=== PATIENT | male | born 1950 | race Caucasian/White ===

== ENCOUNTER → 2017-06-21 | Outpatient (CLI) | payer BC ==
[2015-09-20 10:35] VITALS: BP 96/67
[~2017-06-21] MED LIST: ASPI-630 PO; CELE200C PO; CETI5TAB2 PO; CONTRAST GIVEN MC PRN; EYEDROPS; IOHEXOL 240 MG/ML 50ML VIAL. PO ONE; IOHEXOL 300 MG/ML 75 ML VIAL IV ONE; [UNRECOGNIZED DRUG - REMARK]
--- NOTE | 2017-06-21 12:02 | RAD ---
CT chest, abdomen and pelvis 06/21/2017 at 1045 hours Indication: Restaging colon cancer. Comparison: CT of chest, abdomen and pelvis 06/21/2016 Technique: Multiple axial CT images of the chest, abdomen and pelvis were obtained after the intravenous administration of 74 mL Omnipaque 300. Coronal and sagittal reformats are provided. Oral contrast was administered. Findings: The thyroid gland appears normal. There are no enlarged lymph nodes in the axilla, mediastinal or hilar regions. Borderline prominence of the aortic root measuring up to 4.0 cm. Descending thoracic aorta measures 3.3 cm. Origin of the brachiocephalic vessels are normal. Heart size is within normal limits. No pericardial effusion. Biapical pleural-parenchymal scarring is visualized. Mild upper lung zone predominant centrilobular emphysematous changes are present. Central airways are clear. Stable solid noncalcified pulmonary nodules are identified closely associated with the pleura and pulmonary fissures. For example, stable appearance of a 6 mm mara fissural nodule (series 2, image 47). Right lower lobe pulmonary nodule measuring 6 mm with pleural Association (series 2, image 49) is stable. Left lower lobe 6 mm solid noncalcified pulmonary nodule in the left lateral chest wall pleura is stable ( series 2, image 45). Additional nodules are stable. No pleural effusions, pulmonary vascular congestion or pneumothorax. Abdomen/pelvis: Liver is homogeneous without evidence for a focal mass lesion. Spleen, right adrenal gland and pancreas are normal in appearance. There is similar fusiform thickening of the left adrenal gland measuring 9 mm. Gallbladder is present. No adjacent inflammatory changes are noted. There is mild fusiform ectasia of the infrarenal abdominal aorta. There is scattered atherosclerotic calcification. There are no enlarged lymph nodes in the abdomen or pelvis there is no free intraperitoneal air. No free fluid. There are no dilated small or large bowel loops. No pericolonic inflammatory changes are present. Urinary bladder is within normal limits. Prostate is mildly enlarged. No suspicious osseous lesions are identified. Moderate degenerative changes of the lumbar spine are noted most prominent at L2-L3 and L5-S1. No evidence for cord compression. Impression: 1. Mild centrilobular emphysema with biapical pleural-parenchymal scarring appears stable. There is similar appearance of noncalcified pulmonary nodules predominantly along the pleura and pulmonary fissures. No new solid noncalcified pulmonary nodules are identified. 2. No evidence for danya metastasis involving the chest, abdomen and pelvis. 3. No evidence for bowel obstruction. PQRS Compliance Statement: One or more of the following individualized dose reduction techniques were utilized for this examination: 1. Automated exposure control 2. Adjustment of the mA and/or kV according to patient size 3. Use of iterative reconstruction technique
== END | disposition home or self-care (01) ==
LOC: CT 08:43
PROVIDERS: ATTEND Internal Medicine Hematology & Oncology
DX: C18.2 Malignant neoplasm of ascending colon (principal); J43.2 Centrilobular emphysema
CPT/HCPCS: 36415; 71260; 74177; 82565; Q9966; Q9967

== ENCOUNTER 2017-09-28 16:38 | Inpatient (IN) | payer BC, MEDICARE ==
[~2017-09-28] VITALS: Ht 175.3 cm; Wt 56.8 kg
[~2017-09-28 16:38] MED LIST changes: -CONTRAST GIVEN MC PRN; -IOHEXOL 240 MG/ML 50ML VIAL. PO ONE; -IOHEXOL 300 MG/ML 75 ML VIAL IV ONE
[2017-09-28 17:53] LABS: BASO % 0 % (0-3); EOS % 0 % (0-3); HEMATOCRIT 44.5 % (39.0-53.0); HEMOGLOBIN 15.3 g/dL (13.0-17.5); LYMPH # 0.3 x10^3/uL (1.0-4.8); LYMPH % 2 % (24-48); MEAN CORPUSCULAR HEMOGLOBIN 31 pg (25-35); MEAN CORPUSCULAR HGB CONC 34 g/dL (31-37); MEAN CORPUSCULAR VOLUME 89 fL (79-100); MONO % 7 % (0-9); NEUT % 91 % (31-73); PLATELET COUNT 190 x10^3/uL (140-400); RED BLOOD COUNT 4.98 x10^6/uL (4.30-5.70); RED CELL DISTRIBUTION WIDTH 13.7 % (11.5-14.5); WHITE BLOOD COUNT 16.4 x10^3/uL (4.0-11.0)
[2017-09-28] MEDS: fentaNYL PF VIAL 100 MCG/2 ML VIAL IV PRN ×3 (18:06→20:44)
[2017-09-28 18:10] LABS: CREATININE 1.3 mg/dL (0.7-1.3); GFR 55.4; POTASSIUM 3.9 mmol/L (3.5-5.1)
[2017-09-28 18:19] LABS: ALBUMIN 3.7 g/dL (3.4-5.0); ALBUMIN/GLOBULIN RATIO 0.9 (1.0-1.7); MAGNESIUM 1.7 mg/dL (1.8-2.4); TOTAL BILIRUBIN 1.6 mg/dL (0.2-1.0); TOTAL PROTEIN 7.6 g/dL (6.4-8.2)
--- NOTE | 2017-09-28 18:32 | RAD ---
CT scan of the head without contrast 09/28/2017 Clinical History: Fall with head trauma. Technique: Unenhanced, contiguous, 5 mm axial sections were obtained through the head. One or more of the following individualized dose reduction techniques were utilized for this study: 1. Automated exposure control. 2. Adjustment of the mA and/or kV according to patient size. 3. Use of iterative reconstruction technique. Findings: Comparison study is dated 07/26/2015. There is generalized parenchymal atrophy. Areas of decreased attenuation are seen within the periventricular and subcortical white matter of both cerebral hemispheres consistent with areas of small vessel ischemic disease. Old areas of lacunar infarctions involving the right basal ganglia region, unchanged. No acute parenchymal abnormality is seen. No extra-axial fluid collection is noted. No skull fracture is seen. Impression: No acute intracranial abnormality is seen. CT scan of the cervical spine without contrast 09/28/2017 Clinical history: Neck pain post fall. Technique: Unenhanced, contiguous, 0.625 mm axial sections were obtained through the cervical spine. Axial, coronal and sagittal reconstructed images were obtained. One or more of the following individualized dose reduction techniques were utilized for this study: 1. Automated exposure control. 2. Adjustment of the mA and/or kV according to patient size. 3. Use of iterative reconstruction technique. Findings: Sagittal and coronal reconstructed images demonstrate mild lateral curvature of the cervical spine convex to the left. There is mild straightening of the normal cervical lordosis. Degenerative changes consisting of varying degrees of disc space narrowing, vertebral endplate sclerosis and mild to moderate anterior and posterior vertebral body osteophyte formation are seen involving the cervical disc spaces. No fracture or subluxation of the cervical vertebrae is seen. Degenerative changes are seen involving the uncovertebral and facet joints throughout the cervical disc spaces. Moderate emphysematous changes are seen involving both upper lobes. Areas of scarring and apical pleural thickening are noted bilaterally Impression: No fracture or subluxation of the cervical vertebra is identified. Electronically signed by: Deshaun Guerrero MD (09/28/2017 6:28 PM) [facility]
--- NOTE | 2017-09-28 18:35 | EKG ---
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
--- NOTE | 2017-09-28 19:08 | ED.ADGEN ---
Past Medical History Past Medical History: Cancer, Other Additional Past Medical Histor: colon cancer with chemo, EMPHYSEMA, HYPOTENSION ,"LOW IQ" Past Surgical History: Appendectomy, Other Additional Past Surgical Histo: colon resection, hernia repair,R arm FX repair , HEMORRHOIDECTOMY Alcohol Use: Occasionally Drug Use: None Adult General Chief Complaint Chief Complaint: MECHANICAL FALL HPI HPI Patient is a 66 year old man, history of hypertension, emphysema, colon cancer in remission for the past 3 years, who presents to the emergency department via EMS with complaint of inability to ambulate after a fall. Patient is a very limited historian, he states that he may have lost his balance in the bathroom around 5 PM this afternoon. He states that he did fall down, he may have struck his head, unclear if there is loss of consciousness. He is unable to straighten his left leg, states he was unable to ambulate after this fall occurred, he did call EMS, and EMS did need to breakdown the door in order to reach the patient. Patient is holding his left lower extremity in flexion, complaining of pain in the femoral region, he denies any other injuries, but as stated is a very limited historian, cannot give additional history, was noted to be hypoxic with oxygen saturation in the upper 70s, he states it is a history of emphysema stated but does not use oxygen at baseline. Patient was placed on 3 L nasal cannula, oxygen saturation is now in the mid 90s, he does decline any complaint of shortness of breath, chest pain, fever, nausea, vomiting, cough, weakness, numbness, tingling or syncope. He is unable to list additional medications aside from aspirin. He follows with Dr. Cristian Thomas. Patient patient is also complaining of some neck and upper back pain, c-collar placed upon arrival to the emergency department. Review of Systems Review of Systems Constitutional: Denies fever or chills. [] Eyes: Denies change in visual acuity. [] HENT: Denies nasal congestion or sore throat. [] Respiratory: Denies cough or shortness of breath. [] Hypoxia. Cardiovascular: Denies chest pain or edema. [] GI: Denies abdominal pain, nausea, vomiting, bloody stools or diarrhea. [] : Denies dysuria. [] Musculoskeletal: Complaining of pain in the neck, upper back and left lower extremity. Integument: Denies rash. [] Neurologic: Denies headache, focal weakness or sensory changes. [] Endocrine: Denies polyuria or polydipsia. [] Lymphatic: Denies swollen glands. [] Psychiatric: Denies depression or anxiety. [] Current Medications Current Medications Current Medications Medications (Trade) Dose Ordered Sig/El Start Time Stop Time Status Last Admin Dose Admin Fentanyl Citrate (Fentanyl 2ml Vial) 25 mcg PRN Q15MIN PRN 09/28/17 17:45 09/29/17 17:44 09/28/17 20:44 25 MCG Allergies Allergies Allergies Coded Allergies Type Severity Reaction Last Updated Verified No Known Drug Allergies 09/20/15 No Physical Exam Physical Exam Constitutional: Well developed, well nourished, no acute distress, non-toxic appearance. []C-collar in place. Patient is thin, slightly disheveled. HENT: Normocephalic, atraumatic, bilateral external ears normal, oropharynx moist, no oral exudates, nose normal. [] Eyes: PERRLA, EOMI, conjunctiva normal, no discharge. [] Neck: Normal range of motion, no tenderness, supple, no stridor. C-collar in place. No step-offs or deformities, no bony point tenderness.[] Cardiovascular:Heart rate regular rhythm, no murmur, S1, S2, no rubs or gallops , soft heart sounds, mild tachycardia. [] Lungs & Thorax: Patient with diminished breath sounds throughout, no wheezing, no rhonchi, no rales, no signs of trauma, no chest wall crepitus or tenderness. No lesions identified.[] Abdomen: Bowel sounds normal, soft, no rebound, no rigidity, no guarding, no tenderness, no masses, no pulsatile masses. [] Skin: Warm, dry, no erythema, no rash. [] Back: No midline tenderness, no step-offs or deformities, no paraspinal tenderness to palpation, no evidence of injury or other abnormalities identified , no CVA tenderness. [] Extremities: Patient holding left lower extremity in flexion of the knee, slightly rotated, denies any bony point tenderness at the hip or groin, complains of tenderness palpation in the femoral region, no evidence of external trauma indication, patient with no evidence of effusion, does have flexion at the knee without any point tenderness, range of motion of the ankle and foot is intact with pulses intact bilaterally, patient did have bilateral muscle wasting, with chronic skin changes no cyanosis, no clubbing, no edema. [ ] Neurologic: Alert and oriented X 3, normal motor function, normal sensory function, no focal deficits noted. [] Psychologic: Affect normal, judgement normal, mood normal. [] Current Patient Data Vital Signs Vital Signs Date Time Temp Pulse Resp B/P (MAP) Pulse Ox O2 Delivery O2 Flow Rate FiO2 09/28/17 19:10 28 93 09/28/17 18:47 111 09/28/17 18:06 Nasal Cannula 3.0 09/28/17 16:40 98.6 116/76 (89) 98.6 Lab Values Laboratory Tests Test 09/28/17 17:40 White Blood Count 16.4 x10^3/uL (4.0-11.0) H Red Blood Count 4.98 x10^6/uL (4.30-5.70) Hemoglobin 15.3 g/dL (13.0-17.5) Hematocrit 44.5 % (39.0-53.0) Mean Corpuscular Volume 89 fL (79-100) Mean Corpuscular Hemoglobin 31 pg (25-35) Mean Corpuscular Hemoglobin Concent 34 g/dL (31-37) Red Cell Distribution Width 13.7 % (11.5-14.5) Platelet Count 190 x10^3/uL (140-400) Neutrophils (%) (Auto) 91 % (31-73) H Lymphocytes (%) (Auto) 2 % (24-48) L Monocytes (%) (Auto) 7 % (0-9) Eosinophils (%) (Auto) 0 % (0-3) Basophils (%) (Auto) 0 % (0-3) Neutrophils # (Auto) 15.0 x10^3uL (1.8-7.7) H Lymphocytes # (Auto) 0.3 x10^3/uL (1.0-4.8) L Monocytes # (Auto) 1.1 x10^3/uL (0.0-1.1) Eosinophils # (Auto) 0.0 x10^3/uL (0.0-0.7) Basophils # (Auto) 0.0 x10^3/uL (0.0-0.2) Segmented Neutrophils % 89 % (35-66) H Band Neutrophils % 6 % (0-9) Lymphocytes % 2 % (24-48) L Monocytes % 3 % (0-10) Platelet Estimate Adequate (ADEQUATE) Prothrombin Time 14.1 SEC (11.7-14.0) H Prothrombin Time INR 1.2 (0.8-1.1) H PTT 33 SEC (24-38) Urine Collection Type Unknown Urine Color Anya Urine Clarity Clear Urine pH 6.0 Urine Specific [place] 1.020 Urine Protein Negative mg/dL (NEG-TRACE) Urine Glucose (UA) Negative mg/dL (NEG) Urine Ketones (Stick) 40 mg/dL (NEG) Urine Blood Negative (NEG) Urine Nitrite Negative (NEG) Urine Bilirubin Small (NEG) Urine Urobilinogen Dipstick 0.2 mg/dL (0.2 mg/dL) Urine Leukocyte Esterase Negative (NEG) Urine RBC 0 /HPF (0-2) Urine WBC 0 /HPF (0-4) Urine Squamous Epithelial Cells Mod /LPF Urine Bacteria Few /HPF (0-FEW) Urine Mucus Mod /LPF Sodium Level 125 mmol/L (136-145) L Potassium Level 3.9 mmol/L (3.5-5.1) Chloride Level 93 mmol/L (98-107) L Carbon Dioxide Level 28 mmol/L (21-32) Anion Gap 4 (6-14) L Blood Urea Nitrogen 14 mg/dL (8-26) Creatinine 1.3 mg/dL (0.7-1.3) Estimated GFR (Cockcroft-Gault) 55.4 BUN/Creatinine Ratio 11 (6-20) Glucose Level 168 mg/dL (70-99) H Calcium Level 9.0 mg/dL (8.5-10.1) Magnesium Level 1.7 mg/dL (1.8-2.4) L Total Bilirubin 1.6 mg/dL (0.2-1.0) H Aspartate Amino Transferase (AST) 33 U/L (15-37) Alanine Aminotransferase (ALT) 27 U/L (16-63) Alkaline Phosphatase 83 U/L (46-116) Myoglobin 265 ng/mL (16-96) H Troponin I Quantitative 0.033 ng/mL (0.000-0.055) Total Protein 7.6 g/dL (6.4-8.2) Albumin 3.7 g/dL (3.4-5.0) Albumin/Globulin Ratio 0.9 (1.0-1.7) L Laboratory Tests 09/28/17 17:40 Laboratory Tests 09/28/17 17:40 EKG EKG EC: Sinus tachycardia, heart rate 106 bpm, right axis deviation, QTC of 440, IL 148, QRS of 82, patient with contour normality is noted in the anterior lateral leads, but no significant ST elevations or depressions, abnormal ECG, does not meet STEMI criteria. As interpreted by me.[] Radiology/Procedures Radiology/Procedures [][facility] [address] [place] [address] IMAGING REPORT Signed PATIENT: ANTONIA CHAVEZ ACCOUNT: [id number] : 1950 LOCATION: ER AGE: 66 SEX: M EXAM STATUS: REG ER ORD. PHYSICIAN: ANETTE GIRALDO DO REASON: fall/ ?LOC - XRAY NEXT PROCEDURE: CT HEAD AND CERVICAL SPINE WO CT scan of the head without contrast 09/28/2017 Clinical History: Fall with head trauma. Technique: Unenhanced, contiguous, 5 mm axial sections were obtained through the head. One or more of the following individualized dose reduction techniques were utilized for this study: 1. Automated exposure control. 2. Adjustment of the mA and/or kV according to patient size. 3. Use of iterative reconstruction technique. Findings: Comparison study is dated 07/26/2015. There is generalized parenchymal atrophy. Areas of decreased attenuation are seen within the periventricular and subcortical white matter of both cerebral hemispheres consistent with areas of small vessel ischemic disease. Old areas of lacunar infarctions involving the right basal ganglia region, unchanged. No acute parenchymal abnormality is seen. No extra-axial fluid collection is noted. No skull fracture is seen. Impression: No acute intracranial abnormality is seen. CT scan of the cervical spine without contrast 09/28/2017 Clinical history: Neck pain post fall. Technique: Unenhanced, contiguous, 0.625 mm axial sections were obtained through the cervical spine. Axial, coronal and sagittal reconstructed images were obtained. One or more of the following individualized dose reduction techniques were utilized for this study: 1. Automated exposure control. 2. Adjustment of the mA and/or kV according to patient size. 3. Use of iterative reconstruction technique. Findings: Sagittal and coronal reconstructed images demonstrate mild lateral curvature of the cervical spine convex to the left. There is mild straightening of the normal cervical lordosis. Degenerative changes consisting of varying degrees of disc space narrowing, vertebral endplate sclerosis and mild to moderate anterior and posterior vertebral body osteophyte formation are seen involving the cervical disc spaces. No fracture or subluxation of the cervical vertebrae is seen. Degenerative changes are seen involving the uncovertebral and facet joints throughout the cervical disc spaces. Moderate emphysematous changes are seen involving both upper lobes. Areas of scarring and apical pleural thickening are noted bilaterally Impression: No fracture or subluxation of the cervical vertebra is identified. Electronically signed by: Deshaun Guerrero MD (09/28/2017 6:28 PM) [facility] DICTATED and SIGNED BY: DESHAUN GUERRERO MD DATE: 09/28/171809 CC: MEGHNA MENDOZA MD; ANETTE GIRALDO DO ~ X-ray: One view: Patient with significant hyperinflation, consistent with COPD, noted to have chronic changes bilaterally, but no evidence of discrete infiltrate, effusion, pneumothorax, fracture, or soft tissue abnormality. As interpreted by me. Pelvis and two-view left hip: Pelvis is intact, patient noted to have a fracture of the left femoral neck, with displacement, no other soft tissue or bony abnormalities identified. As interpreted by me. Femur: Left: X-ray reveals femoral neck fracture as stated, without any evidence of additional injury, no other soft tissue or bone abdomen abnormalities identified. As interpreted by me. Left knee: Limited evaluation on this x-ray second to patient's positioning, however no evidence of acute fracture subluxation or other abnormality identified. As interpreted by me. Course & Med Decision Making Course & Med Decision Making Pertinent Labs and Imaging studies reviewed. (See chart for details) Patient mildly tachycardic in the emergency department, on 3 L nasal cannula oxygen saturations are the mid 90s. Chest x-ray reveals evidence of COPD with chronic changes, no acute infiltrates or other abnormalities identified. Head and neck CT imaging obtained, does not reveal evidence of acute injury. X-ray of the left hip reveals a left femoral neck fracture, no other abnormalities identified. Patient's symptoms improved with several doses of IV narcotics in the ED, blood pressure remained stable, patient remains mildly tachycardic, states he is still having some pain but is more comfortable. Patient noted to have hyponatremia with a sodium of 125, no prior for comparison, patient is able to relate to me if he has a history of hyponatremia. No seizure activity or other abnormalities identified based on history or report from family. Patient is at baseline mental status per report of family, they state that he has "a low IQ", patient is agreeable with plan to be admitted to the hospital for medical management, with a pulmonary evaluation, and for surgical repair of his left femoral neck fracture. I did speak with Dr. Enrique of orthopedics, plantar patient be taken to the OR tomorrow pending medical clearance, patient made nothing by mouth after midnight with plan for surgical repair. I did discuss findings as above with Dr. Ho of internal medicine, patient accepted to his service as a full admission to the medical telemetry floor for continued monitoring, symptom management, and consultation as stated. Bridge orders entered per discussion, including gentle IV hydration with repeat laboratory studies to be obtained in the morning. Patient remained stable on supplemental oxygen, with mild sinus tachycardia, transfer to the floor without issue. Dragon Disclaimer Dragon Disclaimer This electronic medical record was generated, in whole or in part, using a voice recognition dictation system. Departure Impression: Primary Impression: Fracture of femoral neck, left Disposition: ADMITTED INPATIENT Admitting Physician: Kenny Ho Condition: IMPROVED ANETTE GIRALDO DO Sep 28, 2017 19:08
[2017-09-28 20:17] LABS: BILIRUBIN,URINE SMALL (NEG); GLUCOSE,URINE NEGATIVE (NEG); NITRITE,URINE NEGATIVE (NEG); PROTEIN,URINE NEGATIVE (NEG-TRACE); UROBILINOGEN,URINE 0.2 mg/dL (0.2 mg/dL)
[2017-09-28 20:25] LABS: INR 1.2 (0.8-1.1); PROTHROMBIN TIME PATIENT 14.1 SEC (11.7-14.0)
[2017-09-28 20:31] LABS: BACTERIA,URINE FEW /HPF (0-FEW); RBC,URINE 0 /HPF (0-2); WBC,URINE 0 /HPF (0-4)
[2017-09-28 20:32] LABS: SQUAMOUS EPITHELIAL CELL,UR MOD /LPF
[2017-09-28 21:00] VITALS: BP 137/83
[2017-09-28 21:17] LABS: PLT ESTIMATE ADEQUATE (ADEQUATE)
[2017-09-28] MEDS ORDERED: ONDANSETRON PF 4 MG/2 ML VIAL. IV PRN (21:45)
[2017-09-28] MEDS: MORPHINE SULFATE 4 MG/ML DISP.SYRIN. IV PRN (21:58)
[2017-09-28] MEDS: IV NORMAL SALINE 1000ML BAG 1,000 ML IV SCH (21:58)
[2017-09-28] MEDS: IPRATRPIUM/ALBUTEROL 0.5/2.5MG 3 ML NEBU. NEB SCH (22:12)
[2017-09-28 23:00] VITALS: BP 133/91
[2017-09-29] MEDS: MORPHINE SULFATE 4 MG/ML DISP.SYRIN. IV PRN ×2 (00:22→05:07)
[2017-09-29 03:00] VITALS: BP 110/62
[2017-09-29 04:47] LABS: BASO % 0 % (0-3); EOS % 0 % (0-3); HEMATOCRIT 42.8 % (39.0-53.0); HEMOGLOBIN 14.3 g/dL (13.0-17.5); LYMPH # 0.8 x10^3/uL (1.0-4.8); LYMPH % 6 % (24-48); MEAN CORPUSCULAR HEMOGLOBIN 31 pg (25-35); MEAN CORPUSCULAR HGB CONC 33 g/dL (31-37); MEAN CORPUSCULAR VOLUME 91 fL (79-100); MONO % 9 % (0-9); NEUT % 85 % (31-73); PLATELET COUNT 162 x10^3/uL (140-400); RED BLOOD COUNT 4.69 x10^6/uL (4.30-5.70); RED CELL DISTRIBUTION WIDTH 14.2 % (11.5-14.5); WHITE BLOOD COUNT 14.3 x10^3/uL (4.0-11.0)
[2017-09-29 05:06] LABS: CALCIUM 8.3 mg/dL (8.5-10.1); CREATININE 1.2 mg/dL (0.7-1.3); GFR 60.8; POTASSIUM 4.2 mmol/L (3.5-5.1)
[2017-09-29 07:00] VITALS: BP 101/62
[2017-09-29] MEDS: IPRATRPIUM/ALBUTEROL 0.5/2.5MG 3 ML NEBU. NEB SCH ×4 (07:44→21:41)
--- NOTE | 2017-09-29 08:43 | RAD ---
KNEE LEFT 2V History:Fall on to left side today, trauma Comparison: None Findings:2 views of the left knee are submitted. The images are limited due to obliquity. No convincing acute fracture is identified. Impression: 1.No convincing acute osseous abnormality is identified, limited evaluation due to the obliquity of images.
--- NOTE | 2017-09-29 08:44 | RAD ---
LEFT FEMUR XRAY History:hypoxia/fall Comparison: None Findings:3 views of the left femur are submitted. There is somewhat impacted left femoral neck fracture. No distal fracture is identified. Impression: 1.There is left femoral neck fracture.
--- NOTE | 2017-09-29 08:45 | RAD ---
HIP LEFT 2V WITH PELVIS History:hypoxia/fall Comparison: None Findings:AP view of the pelvis and 2 additional views left hip are submitted. There is impacted and angulated fracture of the left femoral neck. No other fracture is identified. Impression: 1.There is angulated left femoral neck fracture.
--- NOTE | 2017-09-29 08:46 | CONS ---
DATE OF CONSULTATION: 09/29/2017 REASON FOR CONSULTATION: Preoperative cardiovascular clearance in the setting of an elevated troponin. HISTORY OF PRESENT ILLNESS: The patient is a pleasant 66-year-old man who apparently had a mechanical fall when he woke up earlier this morning and resultant left femoral neck fracture and is currently planned for operative intervention. In speaking with the patient, he currently denies any specific angina or dyspnea. Denies any syncope or palpitations. He has a history of significant tobacco abuse and is limited due to COPD, but otherwise has not had any prior cardiovascular interventions. PAST MEDICAL HISTORY: 1. Colon cancer. 2. Tobacco abuse. SOCIAL HISTORY: The patient continues to smoke 1 pack per day. Denies any alcohol or illicit drug use. He is retired. FAMILY HISTORY: Noncontributory. ALLERGIES: No known drug allergies. CURRENT CARDIOVASCULAR MEDICATIONS: Aspirin 81 mg daily. REVIEW OF SYSTEMS: Negative for 10 out of 14 systems reviewed, unless otherwise mentioned above in the HPI. PHYSICAL EXAMINATION: VITAL SIGNS: Afebrile, 111, 18, 101/62 and 96% on 3 liters nasal cannula. GENERAL: He is alert and oriented, in no acute distress. HEAD AND NECK EXAMINATION: Unremarkable. CARDIAC: Regular rate and rhythm, without any significant murmurs, rubs or gallops. LUNGS: Decreased breath sounds bilaterally with mild end-expiratory wheezing. ABDOMEN: Soft, nontender and nondistended. EXTREMITIES: No clubbing, cyanosis or significant edema. Pain to palpation of the left hip. Limited mobility of the left lower extremity. NEUROLOGIC: No focal deficits. A 2+ radial and dorsalis pedis pulses. DIAGNOSTIC STUDIES: Sodium initially 125, now increased to 135. Troponin 0.0332 elevated, now at 0.099, but this is in the setting of an elevated myoglobin fraction of 265. EKG reveals sinus tachycardia, without any acute ST or T-wave changes. IMPRESSION: 1. Presumed mechanical fall with left femoral neck fracture. 2. Elevated troponin, likely in the setting of muscle necrosis from his fracture rather than true cardiac ischemia. 3. Tobacco abuse with presumed chronic obstructive pulmonary disease. RECOMMENDATIONS: 1. From a purely cardiac perspective, the patient would be [id number] risk for his upcoming infrainguinal femoral neck repair and intervention. No further cardiovascular testing necessary at this time if the operative intervention is immediate. We will plan for routine echocardiogram to rule out any significant pulmonary hypertension. 2. From a cardiopulmonary perspective, the patient is more likely moderate risk given his significant tobacco abuse and COPD. Management of pulmonary issues per anesthesia. Thank you for this consultation. HUGH REIS MD DR: JO ANN/tigre JOB#: [id number] / [id number]
--- NOTE | 2017-09-29 08:52 | RAD ---
Single view chest History:hypoxia/fall, anterior chest wall pain An AP view of the chest is submitted. Comparison: 06/26/2013. Findings: There is emphysema. No pneumothorax or pleural fluid is identified. Some reticular opacity of the upper lobes bilaterally which may be due to fibrotic change. There is a questionable small nodule of the superior right hemithorax at the level right posterior sixth rib. No lobar infiltrate is identified. Impression: 1. There is emphysema. There is no lobar consolidation. 2. There is a possible small nodule of the superior right hemithorax although difficult to otherwise characterize if a true finding.
[2017-09-29] MEDS ORDERED: MORPHINE SULFATE 2 MG/ML DISP.SYRIN. IV PRN (10:00)
[2017-09-29] MEDS ORDERED: ONDANSETRON PF 4 MG/2 ML VIAL. IV PRN (10:00)
[2017-09-29] MEDS ORDERED: LIDOCAINE 1% PF 2 ML VIAL. ID PRN (10:00)
[2017-09-29] MEDS ORDERED: PROCHLORPERAZINE 10 MG/2 ML VIAL. IV PRN (10:00)
[2017-09-29] MEDS ORDERED: HYDROmorphone 2 MG/ML VIAL IV PRN (10:00)
[2017-09-29] MEDS ORDERED: fentaNYL PF VIAL 100 MCG/2 ML VIAL IV PRN ×2 (10:00)
[2017-09-29 11:00] VITALS: BP 92/57
[2017-09-29] MEDS: IV NORMAL SALINE 1000ML BAG 1,000 ML IV SCH (11:20)
--- NOTE | 2017-09-29 11:38 | HP ---
ADMIT DATE: 09/29/2017 CHIEF COMPLAINT: Fall. HISTORY OF PRESENT ILLNESS: The patient is a pleasant 66-year-old male who fell. He apparently lost his balance in the bathroom and fell 5:00 last night. He complained of hip pain, was brought in by EMS. They apparently had to break the door down to get in as the patient could not walk. I discussed the case with the Emergency Room physician. Imaging studies are showing a left femoral neck fracture. We are going to admit the patient. Dr. Enrique of Orthopedic Surgery Service has been consulted. She plans to take this patient to surgery tomorrow morning after clearance by Cardiology. I did discuss the case with Dr. Atkins a few minutes ago as well. He saw the patient; he has cleared him for surgery as well. It should be noted that the patient's sodium was quite low last night at 125, this morning is normal as to 135. PAST MEDICAL HISTORY: Possible early dementia, chronic obstructive pulmonary disease, hypotension, colon cancer, appendectomy, colon resection, hernia repair, right arm fracture, hemorrhoidectomy, "low IQ" (I guess he told the ER that is in the ER record). ALLERGIES: None. FAMILY HISTORY: Hypertension. 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 He does smoke. No drinking or drugs. MEDICATIONS: Reviewed. REVIEW OF SYSTEMS: GENERAL: No history of weight change, weakness or fevers. SKIN: No bruising, hair changes or rashes. EYES: No blurred, double or loss of vision. NOSE AND THROAT: No history of nosebleeds, hoarseness or sore throat. HEART: No history of palpitations, chest pain or shortness of breath on exertion. LUNGS: Denies cough, hemoptysis, wheezing or shortness of breath. GASTROINTESTINAL: Denies changes in appetite, nausea, vomiting, diarrhea or constipation. GENITOURINARY: No history of frequency, urgency, hesitancy or nocturia. NEUROLOGIC: Denies history of numbness, tingling, tremor or weakness. PSYCHIATRIC: No history of panic, anxiety or depression. ENDOCRINE: No history of heat or cold intolerance, polyuria or polydipsia. EXTREMITIES: He complains of hip pain. PHYSICAL EXAMINATION: VITAL SIGNS: Temperature afebrile, pulse 100, respirations 18, blood pressure 110/62, O2 sat 96% on 3 liters. GENERAL: He is alert, cooperative. HEART: Distant S1, S2. LUNGS: Diminished, but clear. ABDOMEN: Soft. EXTREMITIES: No edema. The left femur is slightly swollen. ENDOCRINE: No thyromegaly. LYMPHATICS: No cervical nodes. HEMATOPOIETIC: No bruising. LABORATORY DATA: White count 16, it went down to 14 this morning, hemoglobin is 14, platelets 162. INR is 1.2, PTT 33. Urinalysis negative. Imaging studies were reviewed. ASSESSMENT AND PLAN: Left femoral neck fracture after a fall in a middle-aged male who has multiple comorbidities, but clinically is doing quite well. The patient is cleared for surgery from my standpoint and from Dr. Atkins's standpoint. Tomorrow he will have open reduction and internal fixation of the left femoral neck fracture. Then, he will need 3 days of physical therapy, occupational therapy, and wound care, then go to [facility]. We will resume his home medicines, frequent labs, PT, OT evaluation. NHI DINERO DO DR: MYRANDA/tigre JOB#: [id number] / [id number]
[2017-09-29 12:46] LABS: INR 1.2 (0.8-1.1); PROTHROMBIN TIME PATIENT 14.8 SEC (11.7-14.0)
[2017-09-29] MEDS ORDERED: DORZ10DR7 EACHEYE (14:27)
[2017-09-29] MEDS ORDERED: BIMA2.5D EACHEYE (14:28)
[2017-09-29 15:00] VITALS: BP 95/59
--- NOTE | 2017-09-29 17:05 | PDOC ---
PULMONARY PROGRESS NOTES Vitals Vital Signs Date Time Temp Pulse Resp B/P (MAP) Pulse Ox O2 Delivery O2 Flow Rate FiO2 09/29/17 16:12 98 Nasal Cannula 2.0 09/29/17 15:00 98.2 100 18 95/59 (71) 98.2 Labs Laboratory Tests Test 09/28/17 17:40 09/29/17 03:20 09/29/17 09:30 09/29/17 11:55 White Blood Count 16.4 x10^3/uL (4.0-11.0) 14.3 x10^3/uL (4.0-11.0) Red Blood Count 4.98 x10^6/uL (4.30-5.70) 4.69 x10^6/uL (4.30-5.70) Hemoglobin 15.3 g/dL (13.0-17.5) 14.3 g/dL (13.0-17.5) Hematocrit 44.5 % (39.0-53.0) 42.8 % (39.0-53.0) Mean Corpuscular Volume 89 fL (79-100) 91 fL (79-100) Mean Corpuscular Hemoglobin 31 pg (25-35) 31 pg (25-35) Mean Corpuscular Hemoglobin Concent 34 g/dL (31-37) 33 g/dL (31-37) Red Cell Distribution Width 13.7 % (11.5-14.5) 14.2 % (11.5-14.5) Platelet Count 190 x10^3/uL (140-400) 162 x10^3/uL (140-400) Neutrophils (%) (Auto) 91 % (31-73) 85 % (31-73) Lymphocytes (%) (Auto) 2 % (24-48) 6 % (24-48) Monocytes (%) (Auto) 7 % (0-9) 9 % (0-9) Eosinophils (%) (Auto) 0 % (0-3) 0 % (0-3) Basophils (%) (Auto) 0 % (0-3) 0 % (0-3) Neutrophils # (Auto) 15.0 x10^3uL (1.8-7.7) 12.2 x10^3uL (1.8-7.7) Lymphocytes # (Auto) 0.3 x10^3/uL (1.0-4.8) 0.8 x10^3/uL (1.0-4.8) Monocytes # (Auto) 1.1 x10^3/uL (0.0-1.1) 1.2 x10^3/uL (0.0-1.1) Eosinophils # (Auto) 0.0 x10^3/uL (0.0-0.7) 0.0 x10^3/uL (0.0-0.7) Basophils # (Auto) 0.0 x10^3/uL (0.0-0.2) 0.0 x10^3/uL (0.0-0.2) Segmented Neutrophils % 89 % (35-66) Band Neutrophils % 6 % (0-9) Lymphocytes % 2 % (24-48) Monocytes % 3 % (0-10) Platelet Estimate Adequate (ADEQUATE) Prothrombin Time 14.1 SEC (11.7-14.0) 14.8 SEC (11.7-14.0) Prothromb Time International Ratio 1.2 (0.8-1.1) 1.2 (0.8-1.1) Activated Partial Thromboplast Time 33 SEC (24-38) Urine Collection Type Unknown Urine Color Anya Urine Clarity Clear Urine pH 6.0 Urine Specific Royal 1.020 Urine Protein Negative mg/dL (NEG-TRACE) Urine Glucose (UA) Negative mg/dL (NEG) Urine Ketones (Stick) 40 mg/dL (NEG) Urine Blood Negative (NEG) Urine Nitrite Negative (NEG) Urine Bilirubin Small (NEG) Urine Urobilinogen Dipstick 0.2 mg/dL (0.2 mg/dL) Urine Leukocyte Esterase Negative (NEG) Urine RBC 0 /HPF (0-2) Urine WBC 0 /HPF (0-4) Urine Squamous Epithelial Cells Mod /LPF Urine Bacteria Few /HPF (0-FEW) Urine Mucus Mod /LPF Sodium Level 125 mmol/L (136-145) 135 mmol/L (136-145) Potassium Level 3.9 mmol/L (3.5-5.1) 4.2 mmol/L (3.5-5.1) Chloride Level 93 mmol/L (98-107) 100 mmol/L (98-107) Carbon Dioxide Level 28 mmol/L (21-32) 27 mmol/L (21-32) Anion Gap 4 (6-14) 8 (6-14) Blood Urea Nitrogen 14 mg/dL (8-26) 16 mg/dL (8-26) Creatinine 1.3 mg/dL (0.7-1.3) 1.2 mg/dL (0.7-1.3) Estimated GFR (Cockcroft-Gault) 55.4 60.8 BUN/Creatinine Ratio 11 (6-20) Glucose Level 168 mg/dL (70-99) 98 mg/dL (70-99) Calcium Level 9.0 mg/dL (8.5-10.1) 8.3 mg/dL (8.5-10.1) Magnesium Level 1.7 mg/dL (1.8-2.4) Total Bilirubin 1.6 mg/dL (0.2-1.0) Aspartate Amino Transf (AST/SGOT) 33 U/L (15-37) Alanine Aminotransferase (ALT/SGPT) 27 U/L (16-63) Alkaline Phosphatase 83 U/L (46-116) Myoglobin 265 ng/mL (16-96) Troponin I Quantitative 0.033 ng/mL (0.000-0.055) 0.099 ng/mL (0.000-0.055) 0.090 ng/mL (0.000-0.055) Total Protein 7.6 g/dL (6.4-8.2) Albumin 3.7 g/dL (3.4-5.0) Albumin/Globulin Ratio 0.9 (1.0-1.7) Laboratory Tests Test 09/28/17 17:40 09/29/17 03:20 09/29/17 09:30 09/29/17 11:55 White Blood Count 16.4 x10^3/uL (4.0-11.0) 14.3 x10^3/uL (4.0-11.0) Red Blood Count 4.98 x10^6/uL (4.30-5.70) 4.69 x10^6/uL (4.30-5.70) Hemoglobin 15.3 g/dL (13.0-17.5) 14.3 g/dL (13.0-17.5) Hematocrit 44.5 % (39.0-53.0) 42.8 % (39.0-53.0) Mean Corpuscular Volume 89 fL (79-100) 91 fL (79-100) Mean Corpuscular Hemoglobin 31 pg (25-35) 31 pg (25-35) Mean Corpuscular Hemoglobin Concent 34 g/dL (31-37) 33 g/dL (31-37) Red Cell Distribution Width 13.7 % (11.5-14.5) 14.2 % (11.5-14.5) Platelet Count 190 x10^3/uL (140-400) 162 x10^3/uL (140-400) Neutrophils (%) (Auto) 91 % (31-73) 85 % (31-73) Lymphocytes (%) (Auto) 2 % (24-48) 6 % (24-48) Monocytes (%) (Auto) 7 % (0-9) 9 % (0-9) Eosinophils (%) (Auto) 0 % (0-3) 0 % (0-3) Basophils (%) (Auto) 0 % (0-3) 0 % (0-3) Neutrophils # (Auto) 15.0 x10^3uL (1.8-7.7) 12.2 x10^3uL (1.8-7.7) Lymphocytes # (Auto) 0.3 x10^3/uL (1.0-4.8) 0.8 x10^3/uL (1.0-4.8) Monocytes # (Auto) 1.1 x10^3/uL (0.0-1.1) 1.2 x10^3/uL (0.0-1.1) Eosinophils # (Auto) 0.0 x10^3/uL (0.0-0.7) 0.0 x10^3/uL (0.0-0.7) Basophils # (Auto) 0.0 x10^3/uL (0.0-0.2) 0.0 x10^3/uL (0.0-0.2) Segmented Neutrophils % 89 % (35-66) Band Neutrophils % 6 % (0-9) Lymphocytes % 2 % (24-48) Monocytes % 3 % (0-10) Platelet Estimate Adequate (ADEQUATE) Prothrombin Time 14.1 SEC (11.7-14.0) 14.8 SEC (11.7-14.0) Prothromb Time International Ratio 1.2 (0.8-1.1) 1.2 (0.8-1.1) Activated Partial Thromboplast Time 33 SEC (24-38) Urine Collection Type Unknown Urine Color Anya Urine Clarity Clear Urine pH 6.0 Urine Specific Royal 1.020 Urine Protein Negative mg/dL (NEG-TRACE) Urine Glucose (UA) Negative mg/dL (NEG) Urine Ketones (Stick) 40 mg/dL (NEG) Urine Blood Negative (NEG) Urine Nitrite Negative (NEG) Urine Bilirubin Small (NEG) Urine Urobilinogen Dipstick 0.2 mg/dL (0.2 mg/dL) Urine Leukocyte Esterase Negative (NEG) Urine RBC 0 /HPF (0-2) Urine WBC 0 /HPF (0-4) Urine Squamous Epithelial Cells Mod /LPF Urine Bacteria Few /HPF (0-FEW) Urine Mucus Mod /LPF Sodium Level 125 mmol/L (136-145) 135 mmol/L (136-145) Potassium Level 3.9 mmol/L (3.5-5.1) 4.2 mmol/L (3.5-5.1) Chloride Level 93 mmol/L (98-107) 100 mmol/L (98-107) Carbon Dioxide Level 28 mmol/L (21-32) 27 mmol/L (21-32) Anion Gap 4 (6-14) 8 (6-14) Blood Urea Nitrogen 14 mg/dL (8-26) 16 mg/dL (8-26) Creatinine 1.3 mg/dL (0.7-1.3) 1.2 mg/dL (0.7-1.3) Estimated GFR (Cockcroft-Gault) 55.4 60.8 BUN/Creatinine Ratio 11 (6-20) Glucose Level 168 mg/dL (70-99) 98 mg/dL (70-99) Calcium Level 9.0 mg/dL (8.5-10.1) 8.3 mg/dL (8.5-10.1) Magnesium Level 1.7 mg/dL (1.8-2.4) Total Bilirubin 1.6 mg/dL (0.2-1.0) Aspartate Amino Transf (AST/SGOT) 33 U/L (15-37) Alanine Aminotransferase (ALT/SGPT) 27 U/L (16-63) Alkaline Phosphatase 83 U/L (46-116) Myoglobin 265 ng/mL (16-96) Troponin I Quantitative 0.033 ng/mL (0.000-0.055) 0.099 ng/mL (0.000-0.055) 0.090 ng/mL (0.000-0.055) Total Protein 7.6 g/dL (6.4-8.2) Albumin 3.7 g/dL (3.4-5.0) Albumin/Globulin Ratio 0.9 (1.0-1.7) Medications Active Scripts Medications Dose Route/Sig Max Daily Dose Days Date Category Lumigan (Bimatoprost) 2.5 Ml Drops 1 Drop EACHEYE QHS 09/29/17 Reported Dorzolamide-Timolol Eye Drops (Dorzolamide Hcl/Timolol Maleat) 10 Ml Drops 1 Drop EACHEYE BID 09/29/17 Reported [Eyedrops] 09/20/15 Reported Celebrex (Celecoxib) 200 Mg Capsule 200 Mg PO 30 09/20/15 Reported [Cancer Med Daily] 05/14/14 Reported Aspirin 81 Mg Tab.chew 81 Mg PO 1X 10/10/13 Reported Impression . DICTATED COPD RUL NODULE RESP FAILURE ALCOHOL ABUSE TOBACCO ABUSE SEE ORDERS OK TO PROCEED WITH SURGERY THANKS RAMBO SCHMITT MD Sep 29, 2017 17:05
[2017-09-29] MEDS ORDERED: MULTIVIT INFUSN,ADULT 4,VIT K 10 ML, THIAMINE 100 MG, FOLIC ACID 1 MG in IV DEXTROSE 5 ... IV ONE (18:00)
[2017-09-29 19:00] VITALS: BP 100/64
[2017-09-29] MEDS: LATANOPROST 0.005% OPHTH SOLUTION 2.5ML BOTTLE. OU SCH (21:00)
--- NOTE | 2017-09-29 21:27 | CONS ---
DATE OF CONSULTATION: 09/29/2017 ATTENDING PHYSICIAN: Kenny Ho MD REASON FOR CONSULTATION: The patient seen in pulmonary consultation at the request of Dr. Ho for abnormal x-ray and shortness of air. HISTORY OF PRESENT ILLNESS: The patient is a 66-year-old that apparently was not "within," went to the bathroom, fell and suffered a fracture of the left femoral neck fracture. The patient continues to smoke, has " smoker's cough," does not wear oxygen at home. He normally does not see a physician. He has not been treated for acute exacerbation of COPD within the last 6 months. No hemoptysis. No fever, chills or night sweats. He had a chest x-ray, which revealed some questionable fibrosis, right upper lobe nodule and emphysematous changes. PAST MEDICAL HISTORY: Remarkable for COPD, tobacco dependence, hypertension and colon cancer. PAST SURGICAL HISTORY: He is status post colon resection, hernia repair and appendectomy. ALLERGIES: No known drug allergies. 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 He states that he drinks on a daily basis. REVIEW OF SYSTEMS: As indicated above, otherwise a 10-point system was reviewed and negative. CONSTITUTIONAL: No fever or chills. EYES: No changes in visual acuity. HEENT: No nasal congestion and no sore throat. PULMONARY: As indicated above. CARDIOVASCULAR: No chest pain. No pressure. GASTROINTESTINAL: No nausea, vomiting or diarrhea. GENITOURINARY: No dysuria or frequency. MUSCULOSKELETAL: No localized muscle aches or joint pains. SKIN: No new skin rashes. NEUROLOGIC: No headaches, diplopia or blurred vision. MEDICATIONS: List was reviewed. HOME MEDICATIONS: List was likewise reviewed. PHYSICAL EXAMINATION: VITAL SIGNS: The patient was in no respiratory distress, currently on 2 L of oxygen supplementation and saturation greater than 92%. HEENT: Eyes, the sclerae were nonicteric. NECK: Jugular venous distention was not elevated. No lymphadenopathy. CHEST: Full expansion. LUNGS: Poor airway flow with no wheezes. CARDIOVASCULAR: Regular rate and rhythm with S1, S2, no S3. ABDOMEN: Soft, nontender and nondistended. EXTREMITIES: No clubbing, cyanosis or pitting edema. NEUROLOGIC: The patient was awake, alert and following commands. A detailed neuro exam was not performed. IMAGING: Chest x-ray revealed emphysema with possible small upper lobe nodule and increased lung markings. IMPRESSION: 1. Acute respiratory failure secondary to severe COPD of the emphysematous type. 2. Recent fall suffering a fracture of the left femoral neck. 3. Elevated troponin. 4. Tobacco dependence. 5. Alcohol abuse. PLAN: 1. Continue oxygen supplementation. 2. Nebulized treatments. 3. CT chest. 4. Daily IV banana bag. 5. Postop aggressive pulmonary hygiene. I do appreciate the privilege in sharing in the patient's care. RAMBO SCHMITT MD DR: ADDISON/tigre JOB#: [id number] / [id number]
[2017-09-29] MEDS: DORZOLAMIDE/TIMOLOL 2%/0.5% OPHTH SOLUTION 10ML BOTTLE. OU SCH (22:22)
[2017-09-29 23:00] VITALS: BP 101/65
[2017-09-30] VITALS (11 sets, daily range): BP systolic 89–129; BP diastolic 59–83
[2017-09-30] MEDS ORDERED: IV RINGERS,LACTATED 1000ML 1,000 ML IV SCH (07:00)
[2017-09-30] MEDS: IPRATRPIUM/ALBUTEROL 0.5/2.5MG 3 ML NEBU. NEB SCH ×5 (07:32→19:44)
--- NOTE | 2017-09-30 08:11 | PDOC ---
PULMONARY PROGRESS NOTES Subjective PT WITH NO INCREASE SOA COULD NOT RECALL IF HE SMOKED LAST WEEK Vitals Vital Signs Date Time Temp Pulse Resp B/P (MAP) Pulse Ox O2 Delivery O2 Flow Rate FiO2 09/30/17 07:33 95 Nasal Cannula 3.0 09/30/17 03:00 98.2 87 18 118/72 (87) 98.2 ROS: No Nausea, No Chest Pain, No Abdominal Pain, No Increase Cough General: Alert Lungs: Clear Cardiovascular: S1, S2 Abdomen: Soft Neuro Exam: Alert Extremities: No Edema Skin: Warm Labs Laboratory Tests Test 09/28/17 17:40 09/29/17 03:20 09/29/17 06:00 09/29/17 09:30 White Blood Count 16.4 x10^3/uL (4.0-11.0) 14.3 x10^3/uL (4.0-11.0) Red Blood Count 4.98 x10^6/uL (4.30-5.70) 4.69 x10^6/uL (4.30-5.70) Hemoglobin 15.3 g/dL (13.0-17.5) 14.3 g/dL (13.0-17.5) Hematocrit 44.5 % (39.0-53.0) 42.8 % (39.0-53.0) Mean Corpuscular Volume 89 fL (79-100) 91 fL (79-100) Mean Corpuscular Hemoglobin 31 pg (25-35) 31 pg (25-35) Mean Corpuscular Hemoglobin Concent 34 g/dL (31-37) 33 g/dL (31-37) Red Cell Distribution Width 13.7 % (11.5-14.5) 14.2 % (11.5-14.5) Platelet Count 190 x10^3/uL (140-400) 162 x10^3/uL (140-400) Neutrophils (%) (Auto) 91 % (31-73) 85 % (31-73) Lymphocytes (%) (Auto) 2 % (24-48) 6 % (24-48) Monocytes (%) (Auto) 7 % (0-9) 9 % (0-9) Eosinophils (%) (Auto) 0 % (0-3) 0 % (0-3) Basophils (%) (Auto) 0 % (0-3) 0 % (0-3) Neutrophils # (Auto) 15.0 x10^3uL (1.8-7.7) 12.2 x10^3uL (1.8-7.7) Lymphocytes # (Auto) 0.3 x10^3/uL (1.0-4.8) 0.8 x10^3/uL (1.0-4.8) Monocytes # (Auto) 1.1 x10^3/uL (0.0-1.1) 1.2 x10^3/uL (0.0-1.1) Eosinophils # (Auto) 0.0 x10^3/uL (0.0-0.7) 0.0 x10^3/uL (0.0-0.7) Basophils # (Auto) 0.0 x10^3/uL (0.0-0.2) 0.0 x10^3/uL (0.0-0.2) Segmented Neutrophils % 89 % (35-66) Band Neutrophils % 6 % (0-9) Lymphocytes % 2 % (24-48) Monocytes % 3 % (0-10) Platelet Estimate Adequate (ADEQUATE) Prothrombin Time 14.1 SEC (11.7-14.0) Prothromb Time International Ratio 1.2 (0.8-1.1) Activated Partial Thromboplast Time 33 SEC (24-38) Urine Collection Type Unknown Urine Color Anya Urine Clarity Clear Urine pH 6.0 Urine Specific [place] 1.020 Urine Protein Negative mg/dL (NEG-TRACE) Urine Glucose (UA) Negative mg/dL (NEG) Urine Ketones (Stick) 40 mg/dL (NEG) Urine Blood Negative (NEG) Urine Nitrite Negative (NEG) Urine Bilirubin Small (NEG) Urine Urobilinogen Dipstick 0.2 mg/dL (0.2 mg/dL) Urine Leukocyte Esterase Negative (NEG) Urine RBC 0 /HPF (0-2) Urine WBC 0 /HPF (0-4) Urine Squamous Epithelial Cells Mod /LPF Urine Bacteria Few /HPF (0-FEW) Urine Mucus Mod /LPF Sodium Level 125 mmol/L (136-145) 135 mmol/L (136-145) Potassium Level 3.9 mmol/L (3.5-5.1) 4.2 mmol/L (3.5-5.1) Chloride Level 93 mmol/L (98-107) 100 mmol/L (98-107) Carbon Dioxide Level 28 mmol/L (21-32) 27 mmol/L (21-32) Anion Gap 4 (6-14) 8 (6-14) Blood Urea Nitrogen 14 mg/dL (8-26) 16 mg/dL (8-26) Creatinine 1.3 mg/dL (0.7-1.3) 1.2 mg/dL (0.7-1.3) Estimated GFR (Cockcroft-Gault) 55.4 60.8 BUN/Creatinine Ratio 11 (6-20) Glucose Level 168 mg/dL (70-99) 98 mg/dL (70-99) Calcium Level 9.0 mg/dL (8.5-10.1) 8.3 mg/dL (8.5-10.1) Magnesium Level 1.7 mg/dL (1.8-2.4) Total Bilirubin 1.6 mg/dL (0.2-1.0) Aspartate Amino Transf (AST/SGOT) 33 U/L (15-37) Alanine Aminotransferase (ALT/SGPT) 27 U/L (16-63) Alkaline Phosphatase 83 U/L (46-116) Myoglobin 265 ng/mL (16-96) Troponin I Quantitative 0.033 ng/mL (0.000-0.055) 0.099 ng/mL (0.000-0.055) 0.090 ng/mL (0.000-0.055) Total Protein 7.6 g/dL (6.4-8.2) Albumin 3.7 g/dL (3.4-5.0) Albumin/Globulin Ratio 0.9 (1.0-1.7) Nasal Screen MRSA (PCR) Negative (Negative) Test 09/29/17 11:55 Prothrombin Time 14.8 SEC (11.7-14.0) Prothromb Time International Ratio 1.2 (0.8-1.1) Laboratory Tests Test 09/29/17 09:30 09/29/17 11:55 Troponin I Quantitative 0.090 ng/mL (0.000-0.055) Prothrombin Time 14.8 SEC (11.7-14.0) Prothromb Time International Ratio 1.2 (0.8-1.1) Medications Active Scripts Medications Dose Route/Sig Max Daily Dose Days Date Category Lumigan (Bimatoprost) 2.5 Ml Drops 1 Drop EACHEYE QHS 09/29/17 Reported Dorzolamide-Timolol Eye Drops (Dorzolamide Hcl/Timolol Maleat) 10 Ml Drops 1 Drop EACHEYE BID 09/29/17 Reported [Eyedrops] 09/20/15 Reported Celebrex (Celecoxib) 200 Mg Capsule 200 Mg PO 30 09/20/15 Reported [Cancer Med Daily] 05/14/14 Reported Aspirin 81 Mg Tab.chew 81 Mg PO 1X 10/10/13 Reported Impression . 1. Acute respiratory failure secondary to severe COPD of the emphysematous type. 2. Recent fall suffering a fracture of the left femoral neck. 3. Elevated troponin. 4. Tobacco dependence. 5. Alcohol abuse. Plan . RESP STATUS IS COMPENSATED TO UNDERGO SURGERY PT EXPECTED TO HAVE SOME RESP DISTRESS/FAILURE POST SURGERY WILL USE PRN BIPAP CHECK ABG NOW 1. Continue oxygen supplementation. 2. Nebulized treatments. 3. CT chest. 4. Daily IV banana bag. 5. Postop aggressive pulmonary hygiene. RAMBO SCHMITT MD Sep 30, 2017 08:11
[2017-09-30] MEDS: DORZOLAMIDE/TIMOLOL 2%/0.5% OPHTH SOLUTION 10ML BOTTLE. OU SCH ×2 (08:24→21:34)
[2017-09-30] MEDS ORDERED: MORPHINE SULFATE 2 MG/ML DISP.SYRIN. IV PRN (08:30)
[2017-09-30] MEDS ORDERED: MORPHINE SULFATE 4 MG/ML DISP.SYRIN. IV PRN (08:30)
[2017-09-30] MEDS ORDERED: PHENYLEPHRINE in 0.9% NACL PF 1 MG/10 ML DISP.SYRIN. IV ONE (09:06)
[2017-09-30] MEDS ORDERED: ONDANSETRON PF 4 MG/2 ML VIAL. ONE (09:06)
[2017-09-30] MEDS ORDERED: DEXAMETHASONE SOD PHOS 20 MG/5 ML VIAL. ONE (09:06)
[2017-09-30] MEDS ORDERED: LIDOCAINE 2% PF Vial for OR 5 ML VIAL. ONE (09:06)
[2017-09-30] MEDS ORDERED: PROPOFOL 20 ML IV ONE (09:06)
[2017-09-30] MEDS ORDERED: fentaNYL PF VIAL 250 MCG/5 ML VIAL ONE (09:07)
[2017-09-30] MEDS ORDERED: ROCURONIUM 50 MG/5 ML VIAL. ONE (09:08)
[2017-09-30] MEDS ORDERED: SUCCINYLCHOLINE 200 MG/10 ML VIAL. ONE (09:09)
[2017-09-30] MEDS ORDERED: ALBUTEROL SULFATE 2.5 MG/3 ML NEBU. ONE (09:42)
[2017-09-30] MEDS: ALBUTEROL SULFATE 2.5 MG/3 ML NEBU. NEB PRN ×3 (09:46→17:17)
[2017-09-30] MEDS ORDERED: MORPHINE SULFATE 5 MG, KETOROLAC 30 MG, ROPIVacaine 0.5% PF 60 ML, EPINEPHrine 0.5 MG i... INT ART ONE ×5 (10:15)
[2017-09-30] MEDS ORDERED: ceFAZolin SODIUM 2 GM in IV DEXTROSE 5% 50 ML IV PRN (10:15)
[2017-09-30] MEDS ORDERED: PHENYLEPHRINE 10 MG/ML VIAL. ONE (10:35)
--- NOTE | 2017-09-30 12:08 | PDOC4 ---
Operative Note Operative Note OPERATIVE REPORT DATE OF OPERATION: 09/30/2017 PREOPERATIVE DIAGNOSIS: LEFT DISPLACED FEMORAL NECK FRACTURE S72.002A POSTOPERATIVE DIAGNOSIS: LEFT DISPLACED FEMORAL NECK FRACTURE S72.002A OPERATION PERFORMED: LEFT HIP BIPOLAR ARTHROPLASTY; (OPEN TREATMENT OF FEMORAL FRACTURE, PROXIMAL END, NECK, INTERNAL FIXATION OR PROSTHETIC REPLACEMENT), CPT 66740 SURGEON: Marcelina Chong MD PRODUCT SUPPORT SALES REPRESENTATIVE: LAURO MUNOZ ANESTHESIA: General ESTIMATED BLOOD LOSS: 50 CC IMPLANTS: SURINDER ACCOLADE II PRESS FIT SIZE 2.5 STEM, 47 MM BIPOLAR HEAD, -3 head SURGICAL INDICATION: The patient is a 66 year old male who fell, fracturing the left right hip. Xrays revealed a displaced femoral neck fracture. The patient and I discussed the risks and benefits and alternatives of treatment. The alternative for treatment is bedrest until the fracture feels well, which is generally not well tolerated due to the risks of bedsores, blood clots, pneumonia, and deconditioning. I recommended a bipolar arthroplasty, and I talked to them about the potential risks of this including risks of bleeding, infection, blood clots, dislocation, leg length discrepancy, periprosthetic fracture, hardware failure, or other potential surgical or anesthetic complications. All of their questions were answered about surgery and they desired to proceed. A written consent was obtained. DESCRIPTION OF PROCEDURE: The patient was identified, marked, and the procedure was reconfirmed by myself prior to taking them to the operating room. IV antibiotics were given preoperatively. The patient was positioned appropriately lateral with all bony prominences well padded. and underwent adequate general anesthesia after a timeout was performed. The operative leg was prepped and draped in a standard surgical fashion using an ioban hip drape and an impervious stockinette such that the skin was entirely covered. All of the operating team wore the personal ventilated exhaust scrub suits. A final timeout was performed prior to making incision. A posterior approach to the hip was used. Sharp dissection was used and bovie electrocautery was used for hemostasis. Gelpi retractors were placed. Bovie electrocautery was used and the fascia was exposed. The fascia was sharply divided and then a Charnley retractor was placed splitting the gluteus aurea muscle inline with the fibers. My distribution center assistant then internally rotated the hip to put the short external rotators on stretch. I placed a tag suture into the piriformis tendon, and then I divided the short external rotators off the posterior aspect of the hip. The charnley retractor was placed deeper now to protect the sciatic nerve with the short external rotators. The capsule was divided in an inverted T fashion and tagged on the corners. The fracture was identified. The neck was recut with a saw approximately 1 fingerbreadth superior to the lesser trochanter and the fragment was removed. The head was removed with a skid and corkscrew and measured using the calipers to be 47 mm in diameter. The acetabulum was cleared of any soft tissue and bony fragments. The lateral aspect of the cut femoral neck was exposed in the piriformis fossae. A box osteotome was used to enlarge the entry laterally and a manual T handled canal finder was inserted down the shaft of the femur. The proximal femur was broached in the appropriate anteversion starting with a size 0 and progressing to a size 2.5 when it was found that the broach had good stability. A trial size 2.5 broach was then placed and found to have good stability medially to lateral. Different head and neck lengths were trialed until satisfactory length and stability were achieved in full extension, hip flexion of 90 degrees, and internal rotation. My distribution center assistant was required to dislocate the hip with traction and rotation on the leg, while I directed the hip implant in and out of the socket. An intraoperative xray was taken with the trials in place and was found to have appropriate canal fill and offset. The trial components were then removed, the canal was irrigated and the final components were placed without any difficulty. The hip was reduced a final time with my distribution center assistant applying axial traction and rotation, while I guided the head into the acetabulum. A final check was made of limb length and stability in multiple positions. Copious irrigation was used. The capsule was reapproximated with 0 Ethibond. The piriformis tendon was repaired back to the fossae through a small drill hole in the greater trochanter with #5 ethibond. The fascia was closed with 1- Vicryl figure of 8 sutures. 2-0 vicryl and 3-0 monocryl were used to close the superficial soft tissues, and the skin was closed with a prineo dressing. 100 cc of periarticular injection was infiltrated into the incision and surrounding tissues for pain control. A sterile dressing was applied. An abduction pillow was used. The patient tolerated the procedure well. Needle and sponge counts were correct. DISPOSITION: The patient was transferred to the bed and taken to the recovery room awake, alert, and in stable condition. COMPLICATIONS: None POST-OPERATIVE PLAN: THE PATIENT CAN BE WEIGHT BEARING TOLERATED , HIP PRECAUTIONS. MARCELINA CHONG MD Sep 30, 2017 12:08
--- NOTE | 2017-09-30 12:13 | PDOC ---
ORTHO PROGRESS NOTES Subjective No acute events overnight. Cleared by medicine and cardiology for surgery today. Vitals Vital Signs Date Time Temp Pulse Resp B/P (MAP) Pulse Ox O2 Delivery O2 Flow Rate FiO2 09/30/17 11:54 99.4 83 16 101/67 97 Simple Mask 10 99.4 Labs Laboratory Tests Test 09/28/17 17:40 09/29/17 03:20 09/29/17 06:00 09/29/17 09:30 White Blood Count 16.4 x10^3/uL (4.0-11.0) 14.3 x10^3/uL (4.0-11.0) Red Blood Count 4.98 x10^6/uL (4.30-5.70) 4.69 x10^6/uL (4.30-5.70) Hemoglobin 15.3 g/dL (13.0-17.5) 14.3 g/dL (13.0-17.5) Hematocrit 44.5 % (39.0-53.0) 42.8 % (39.0-53.0) Mean Corpuscular Volume 89 fL (79-100) 91 fL (79-100) Mean Corpuscular Hemoglobin 31 pg (25-35) 31 pg (25-35) Mean Corpuscular Hemoglobin Concent 34 g/dL (31-37) 33 g/dL (31-37) Red Cell Distribution Width 13.7 % (11.5-14.5) 14.2 % (11.5-14.5) Platelet Count 190 x10^3/uL (140-400) 162 x10^3/uL (140-400) Neutrophils (%) (Auto) 91 % (31-73) 85 % (31-73) Lymphocytes (%) (Auto) 2 % (24-48) 6 % (24-48) Monocytes (%) (Auto) 7 % (0-9) 9 % (0-9) Eosinophils (%) (Auto) 0 % (0-3) 0 % (0-3) Basophils (%) (Auto) 0 % (0-3) 0 % (0-3) Neutrophils # (Auto) 15.0 x10^3uL (1.8-7.7) 12.2 x10^3uL (1.8-7.7) Lymphocytes # (Auto) 0.3 x10^3/uL (1.0-4.8) 0.8 x10^3/uL (1.0-4.8) Monocytes # (Auto) 1.1 x10^3/uL (0.0-1.1) 1.2 x10^3/uL (0.0-1.1) Eosinophils # (Auto) 0.0 x10^3/uL (0.0-0.7) 0.0 x10^3/uL (0.0-0.7) Basophils # (Auto) 0.0 x10^3/uL (0.0-0.2) 0.0 x10^3/uL (0.0-0.2) Segmented Neutrophils % 89 % (35-66) Band Neutrophils % 6 % (0-9) Lymphocytes % 2 % (24-48) Monocytes % 3 % (0-10) Platelet Estimate Adequate (ADEQUATE) Prothrombin Time 14.1 SEC (11.7-14.0) Prothromb Time International Ratio 1.2 (0.8-1.1) Activated Partial Thromboplast Time 33 SEC (24-38) Urine Collection Type Unknown Urine Color Anya Urine Clarity Clear Urine pH 6.0 Urine Specific [place] 1.020 Urine Protein Negative mg/dL (NEG-TRACE) Urine Glucose (UA) Negative mg/dL (NEG) Urine Ketones (Stick) 40 mg/dL (NEG) Urine Blood Negative (NEG) Urine Nitrite Negative (NEG) Urine Bilirubin Small (NEG) Urine Urobilinogen Dipstick 0.2 mg/dL (0.2 mg/dL) Urine Leukocyte Esterase Negative (NEG) Urine RBC 0 /HPF (0-2) Urine WBC 0 /HPF (0-4) Urine Squamous Epithelial Cells Mod /LPF Urine Bacteria Few /HPF (0-FEW) Urine Mucus Mod /LPF Sodium Level 125 mmol/L (136-145) 135 mmol/L (136-145) Potassium Level 3.9 mmol/L (3.5-5.1) 4.2 mmol/L (3.5-5.1) Chloride Level 93 mmol/L (98-107) 100 mmol/L (98-107) Carbon Dioxide Level 28 mmol/L (21-32) 27 mmol/L (21-32) Anion Gap 4 (6-14) 8 (6-14) Blood Urea Nitrogen 14 mg/dL (8-26) 16 mg/dL (8-26) Creatinine 1.3 mg/dL (0.7-1.3) 1.2 mg/dL (0.7-1.3) Estimated GFR (Cockcroft-Gault) 55.4 60.8 BUN/Creatinine Ratio 11 (6-20) Glucose Level 168 mg/dL (70-99) 98 mg/dL (70-99) Calcium Level 9.0 mg/dL (8.5-10.1) 8.3 mg/dL (8.5-10.1) Magnesium Level 1.7 mg/dL (1.8-2.4) Total Bilirubin 1.6 mg/dL (0.2-1.0) Aspartate Amino Transf (AST/SGOT) 33 U/L (15-37) Alanine Aminotransferase (ALT/SGPT) 27 U/L (16-63) Alkaline Phosphatase 83 U/L (46-116) Myoglobin 265 ng/mL (16-96) Troponin I Quantitative 0.033 ng/mL (0.000-0.055) 0.099 ng/mL (0.000-0.055) 0.090 ng/mL (0.000-0.055) Total Protein 7.6 g/dL (6.4-8.2) Albumin 3.7 g/dL (3.4-5.0) Albumin/Globulin Ratio 0.9 (1.0-1.7) Nasal Screen MRSA (PCR) Negative (Negative) Test 09/29/17 11:55 Prothrombin Time 14.8 SEC (11.7-14.0) Prothromb Time International Ratio 1.2 (0.8-1.1) Notes LLE: shortened, externally rotated. nvi distally. thomas in place Problems: (1) Fracture of femoral neck, left Assessment and Plan The patient has a left femoral neck fracture, displaced. Plan for OR today for left hip hemiarthroplasty. WBAT postop dc thomas when able pain control bowel regimen can followup with me in 1 week in office for incision check and xrays. Problem Qualifiers (1) Fracture of femoral neck, left: Encounter type: initial encounter Fracture type: closed Qualified Codes: S72.002A - Fracture of unspecified part of neck of left femur, initial encounter for closed fracture DEVIN CHONG MD Sep 30, 2017 12:13
--- NOTE | 2017-09-30 12:32 | RAD ---
PELVIS History:postop hip replacement Comparison: 09/28/2017 Findings: AP view of the pelvis is submitted. There is now left hip hemiarthroplasty which is adequately aligned. There is gas in soft tissues. Impression: 1.There is adequate alignment left hip hemiarthroplasty.
[2017-09-30 14:06] LABS: HCO3 ABG 24 mmol/L (21-28); PCO2 ABG 43 mmHg (35-46); PH ABG 7.36 (7.35-7.45); PO2 ABG 53 mmHg (65-108); SAT O2 ABG 88 % (92-99)
[2017-09-30 14:08] LABS: FIO2 ABG 32
--- NOTE | 2017-09-30 15:07 | PDOC ---
PROGRESS NOTES Chief Complaint Chief Complaint Femur Fx, Fall Risk History of Present Illness History of Present Illness SP Day 0, Femur Fx Pt lying down, somnolent, Cough, Nasal Cannula Incision CDI SNU Evaluation Ordered DW sister, SNU Vitals Vitals Vital Signs Date Time Temp Pulse Resp B/P (MAP) Pulse Ox O2 Delivery O2 Flow Rate FiO2 09/30/17 13:33 Nasal Cannula 3.0 09/30/17 13:32 90 09/30/17 12:39 98.7 83 16 93/67 98.7 Physical Exam General: Cooperative, No acute distress Heart: Regular rate, Normal S1 Lungs: Clear Abdomen: Normal bowel sounds, Soft, No tenderness Extremities: No clubbing, No cyanosis Skin: No rashes, No breakdown Labs LABS Laboratory Tests Test 09/30/17 13:55 O2 Saturation 88 % (92-99) Arterial Blood pH 7.36 (7.35-7.45) Arterial Blood pCO2 at Patient Temp 43 mmHg (35-46) Arterial Blood pO2 at Patient Temp 53 mmHg (65-108) Arterial Blood HCO3 24 mmol/L (21-28) Arterial Blood Base Excess -2 mmol/L (-3-3) FiO2 32 Review of Systems Review of Systems Unobtainable Assessment and Plan Assessmemt and Plan Assessment: Fracture of femoral neck, left Hypoxia Acute respiratory failure secondary to severe COPD of the emphysematous type. Elevated troponin. Tobacco dependence. Alcohol abuse. Plan: SNU Evaluation- Ordered Continue Nebulizer Treatment Continue IVF Continue Pain Meds PRN Continue Cardiac Monitoring Awaiting Echo Results Continue Wound Care Recheck Labs Continue Home Meds Continue PT/OT Problems: Comment Review of Relevant I have reviewed the following items yareli (where applicable) has been applied. Labs Laboratory Tests Test 09/28/17 17:40 09/29/17 03:20 09/29/17 06:00 09/29/17 09:30 White Blood Count 16.4 x10^3/uL (4.0-11.0) 14.3 x10^3/uL (4.0-11.0) Red Blood Count 4.98 x10^6/uL (4.30-5.70) 4.69 x10^6/uL (4.30-5.70) Hemoglobin 15.3 g/dL (13.0-17.5) 14.3 g/dL (13.0-17.5) Hematocrit 44.5 % (39.0-53.0) 42.8 % (39.0-53.0) Mean Corpuscular Volume 89 fL (79-100) 91 fL (79-100) Mean Corpuscular Hemoglobin 31 pg (25-35) 31 pg (25-35) Mean Corpuscular Hemoglobin Concent 34 g/dL (31-37) 33 g/dL (31-37) Red Cell Distribution Width 13.7 % (11.5-14.5) 14.2 % (11.5-14.5) Platelet Count 190 x10^3/uL (140-400) 162 x10^3/uL (140-400) Neutrophils (%) (Auto) 91 % (31-73) 85 % (31-73) Lymphocytes (%) (Auto) 2 % (24-48) 6 % (24-48) Monocytes (%) (Auto) 7 % (0-9) 9 % (0-9) Eosinophils (%) (Auto) 0 % (0-3) 0 % (0-3) Basophils (%) (Auto) 0 % (0-3) 0 % (0-3) Neutrophils # (Auto) 15.0 x10^3uL (1.8-7.7) 12.2 x10^3uL (1.8-7.7) Lymphocytes # (Auto) 0.3 x10^3/uL (1.0-4.8) 0.8 x10^3/uL (1.0-4.8) Monocytes # (Auto) 1.1 x10^3/uL (0.0-1.1) 1.2 x10^3/uL (0.0-1.1) Eosinophils # (Auto) 0.0 x10^3/uL (0.0-0.7) 0.0 x10^3/uL (0.0-0.7) Basophils # (Auto) 0.0 x10^3/uL (0.0-0.2) 0.0 x10^3/uL (0.0-0.2) Segmented Neutrophils % 89 % (35-66) Band Neutrophils % 6 % (0-9) Lymphocytes % 2 % (24-48) Monocytes % 3 % (0-10) Platelet Estimate Adequate (ADEQUATE) Prothrombin Time 14.1 SEC (11.7-14.0) Prothromb Time International Ratio 1.2 (0.8-1.1) Activated Partial Thromboplast Time 33 SEC (24-38) Urine Collection Type Unknown Urine Color Anya Urine Clarity Clear Urine pH 6.0 Urine Specific [place] 1.020 Urine Protein Negative mg/dL (NEG-TRACE) Urine Glucose (UA) Negative mg/dL (NEG) Urine Ketones (Stick) 40 mg/dL (NEG) Urine Blood Negative (NEG) Urine Nitrite Negative (NEG) Urine Bilirubin Small (NEG) Urine Urobilinogen Dipstick 0.2 mg/dL (0.2 mg/dL) Urine Leukocyte Esterase Negative (NEG) Urine RBC 0 /HPF (0-2) Urine WBC 0 /HPF (0-4) Urine Squamous Epithelial Cells Mod /LPF Urine Bacteria Few /HPF (0-FEW) Urine Mucus Mod /LPF Sodium Level 125 mmol/L (136-145) 135 mmol/L (136-145) Potassium Level 3.9 mmol/L (3.5-5.1) 4.2 mmol/L (3.5-5.1) Chloride Level 93 mmol/L (98-107) 100 mmol/L (98-107) Carbon Dioxide Level 28 mmol/L (21-32) 27 mmol/L (21-32) Anion Gap 4 (6-14) 8 (6-14) Blood Urea Nitrogen 14 mg/dL (8-26) 16 mg/dL (8-26) Creatinine 1.3 mg/dL (0.7-1.3) 1.2 mg/dL (0.7-1.3) Estimated GFR (Cockcroft-Gault) 55.4 60.8 BUN/Creatinine Ratio 11 (6-20) Glucose Level 168 mg/dL (70-99) 98 mg/dL (70-99) Calcium Level 9.0 mg/dL (8.5-10.1) 8.3 mg/dL (8.5-10.1) Magnesium Level 1.7 mg/dL (1.8-2.4) Total Bilirubin 1.6 mg/dL (0.2-1.0) Aspartate Amino Transf (AST/SGOT) 33 U/L (15-37) Alanine Aminotransferase (ALT/SGPT) 27 U/L (16-63) Alkaline Phosphatase 83 U/L (46-116) Myoglobin 265 ng/mL (16-96) Troponin I Quantitative 0.033 ng/mL (0.000-0.055) 0.099 ng/mL (0.000-0.055) 0.090 ng/mL (0.000-0.055) Total Protein 7.6 g/dL (6.4-8.2) Albumin 3.7 g/dL (3.4-5.0) Albumin/Globulin Ratio 0.9 (1.0-1.7) Nasal Screen MRSA (PCR) Negative (Negative) Test 09/29/17 11:55 09/30/17 13:55 Prothrombin Time 14.8 SEC (11.7-14.0) Prothromb Time International Ratio 1.2 (0.8-1.1) O2 Saturation 88 % (92-99) Arterial Blood pH 7.36 (7.35-7.45) Arterial Blood pCO2 at Patient Temp 43 mmHg (35-46) Arterial Blood pO2 at Patient Temp 53 mmHg (65-108) Arterial Blood HCO3 24 mmol/L (21-28) Arterial Blood Base Excess -2 mmol/L (-3-3) FiO2 32 Laboratory Tests Test 09/30/17 13:55 O2 Saturation 88 % (92-99) Arterial Blood pH 7.36 (7.35-7.45) Arterial Blood pCO2 at Patient Temp 43 mmHg (35-46) Arterial Blood pO2 at Patient Temp 53 mmHg (65-108) Arterial Blood HCO3 24 mmol/L (21-28) Arterial Blood Base Excess -2 mmol/L (-3-3) FiO2 32 Medications Current Medications Fentanyl Citrate (Fentanyl 2ml Vial) 25 mcg PRN Q15MIN PRN IV PAIN GREATER THAN 3/10 Last administered on 09/28/17 20:44; Start 09/28/17 at 17:45; Stop 09/29/17 at 13:54; Status DC Ondansetron HCl (Zofran) 4 mg PRN Q8HRS PRN IV NAUSEA/VOMITING; Start at 21:45; Stop 09/29/17 at 21:44; Status DC Morphine Sulfate 4 mg PRN Q2HR PRN IV SEVERE PAIN Last administered on 05:07; Start 09/28/17 at 21:45; Stop 09/29/17 at 21:44; Status DC Sodium Chloride 1,000 ml @ 75 mls/hr [id number] IV Last administered on 11:20; Start 09/28/17 at 22:00; Stop 09/29/17 at 21:59; Status DC Albuterol/ Ipratropium (Duoneb) 3 ml RTQID NEB Last administered on 09/30/17 13:30; Start 09/28/17 at 22:00; Stop 09/30/17 at 21:59 Ondansetron HCl (Zofran) 4 mg PRN Q6HRS PRN IV NAUSEA/VOMITING; Start at 10:00; Stop 09/29/17 at 18:00; Status DC Fentanyl Citrate (Fentanyl 2ml Vial) 25 mcg PRN Q5MIN PRN IV MILD PAIN; Start 09/29/17 at 10:00; Stop 09/29/17 at 18:00; Status DC Fentanyl Citrate (Fentanyl 2ml Vial) 50 mcg PRN Q5MIN PRN IV MODERATE PAIN; Start 09/29/17 at 10:00; Stop 09/29/17 at 18:00; Status DC Morphine Sulfate 1 mg PRN Q10MIN PRN IV SEVERE PAIN; Start 09/29/17 at 10:00; Stop 09/29/17 at 18:00; Status DC Ringer's Solution 1,000 ml @ 30 mls/hr Q24H IV ; Start 09/30/17 at 07:00; Stop 09/30/17 at 18:59 Lidocaine HCl (Xylocaine-Mpf 1% Vial) 2 ml PRN 1X PRN ID IV START; Start 09/29 at 10:00; Stop 09/29/17 at 18:00; Status DC Hydromorphone HCl (Dilaudid) 0.5 mg PRN Q10MIN PRN IV SEV PAIN, Second choice; Start 09/29/17 at 10:00; Stop 09/29/17 at 18:00; Status DC Prochlorperazine Edisylate (Compazine) 5 mg PACU PRN PRN IV NAUSEA, MRX1; Start 09/29/17 at 10:00; Stop 09/29/17 at 18:00; Status DC Dorzolamide/ Timolol (Cosopt) 1 drop BID OU Last administered on 09/30/17 08: 24; Start 09/29/17 at 21:00 Latanoprost (Xalatan) 1 drop QHS OU Last administered on 09/29/17 21:00; Start 09/29/17 at 21:00 Multivitamins 10 ml/Thiamine HCl 100 mg/Folic Acid 1 mg/Dextrose/ Sodium Chloride 1,011.2 ml @ 1,000.088 mls/hr 1X ONCE IV Last administered on 18:00; Start 09/29/17 at 18:00; Stop 09/29/17 at 19:00; Status DC Morphine Sulfate 2 mg PRN Q2HR PRN IV PAIN Last administered on 09/30/17 08: 24; Start 09/30/17 at 08:30 Morphine Sulfate 4 mg PRN Q2HR PRN IV PAIN; Start 09/30/17 at 08:30 Albuterol Sulfate (Ventolin Neb Soln) 2.5 mg 1X PACU PRN NEB SHORTNESS OF BREATH Last administered on 09/30/17 09:46; Start 09/30/17 at 09:45; Stop at 23:00 Morphine Sulfate 5 mg/Ketorolac Tromethamine 30 mg/Ropivacaine 60 ml/ Epinephrine HCl 0.5 mg/Sodium Chloride 100 ml @ 100 mls/hr 1X PERIOP ONCE INT ART Last administered on 09/30/17 10:32; Start 09/30/17 at 10:15; Stop at 11:14; Status DC Cefazolin Sodium 2 gm/Dextrose 50 ml @ 100 mls/hr 1X PREOP PRN IV PRIOR TO PROCEDURE; Start 09/30/17 at 10:15; Status UNV Cefazolin Sodium/ Dextrose 50 ml @ 100 mls/hr 1X PREOP PRN IV PRIOR TO PROCEDURE Last administered on 09/30/17 10:19; Start 09/30/17 at 10:15; Stop 09/30/17 at 14:00; Status DC Active Scripts Active Reported Lumigan (Bimatoprost) 2.5 Ml Drops 1 Drop EACHEYE QHS Dorzolamide-Timolol Eye Drops (Dorzolamide Hcl/Timolol Maleat) 10 Ml Drops 1 Drop EACHEYE BID [Eyedrops] Celebrex (Celecoxib) 200 Mg Capsule 200 Mg PO 30 Days [Cancer Med Daily] Aspirin 81 Mg Tab.chew 81 Mg PO 1X Vitals/I & O Vital Sign - Last 24 Hours 09/29/17 09/29/17 09/29/17 09/29/17 16:12 19:00 20:00 21:42 Temp 98.4 98.4 Pulse 86 Resp 18 B/P (MAP) 100/64 (76) Pulse Ox 98 93 93 O2 Delivery Nasal Cannula Nasal Cannula Nasal Cannula Nasal Cannula O2 Flow Rate 2.0 3.0 2.0 3.0 09/29/17 09/30/17 09/30/17 09/30/17 23:00 03:00 07:00 07:33 Temp 98.5 98.2 98.2 98.5 98.2 98.2 Pulse 87 87 91 Resp 18 18 18 B/P (MAP) 101/65 (77) 118/72 (87) 109/77 (88) Pulse Ox 90 90 90 95 O2 Delivery Nasal Cannula Nasal Cannula Nasal Cannula Nasal Cannula O2 Flow Rate 3.0 3.0 3.0 3.0 09/30/17 09/30/17 09/30/17 09/30/17 08:10 08:24 09:20 11:54 Temp 99.5 99.4 99.5 99.4 Pulse 87 83 Resp 20 16 B/P (MAP) 114/78 101/67 Pulse Ox 86 97 O2 Delivery Nasal Cannula Nasal Cannula Nasal Cannula Simple Mask O2 Flow Rate 3.0 3.0 4 10 09/30/17 09/30/17 09/30/17 09/30/17 11:54 12:09 12:24 12:39 Temp 98.7 98.7 Pulse 84 83 83 Resp 16 16 16 B/P (MAP) 88/62 104/68 93/67 Pulse Ox 98 99 98 O2 Delivery Mask Simple Mask Simple Mask Simple Mask O2 Flow Rate 10 10 10 10 09/30/17 09/30/17 13:32 13:33 Pulse Ox 90 O2 Delivery Nasal Cannula Nasal Cannula O2 Flow Rate 3.0 3.0 Intake and Output 09/29/17 09/29/17 09/30/17 15:00 23:00 07:00 Intake Total 120 ml Output Total 325 ml 775 ml Balance -325 ml -655 ml NHI DINERO III DO Sep 30, 2017 15:07
[2017-09-30] MEDS: LATANOPROST 0.005% OPHTH SOLUTION 2.5ML BOTTLE. OU SCH (21:00)
[2017-10-01 03:00] VITALS: BP 106/72
[2017-10-01 05:13] LABS: BASO % 0 % (0-3); EOS % 0 % (0-3); HEMATOCRIT 32.1 % (39.0-53.0); HEMOGLOBIN 11.1 g/dL (13.0-17.5); LYMPH # 0.6 x10^3/uL (1.0-4.8); LYMPH % 7 % (24-48); MEAN CORPUSCULAR HEMOGLOBIN 32 pg (25-35); MEAN CORPUSCULAR HGB CONC 34 g/dL (31-37); MEAN CORPUSCULAR VOLUME 92 fL (79-100); MONO % 16 % (0-9); NEUT % 76 % (31-73); PLATELET COUNT 115 x10^3/uL (140-400); RED CELL DISTRIBUTION WIDTH 14.3 % (11.5-14.5)
[2017-10-01 05:56] LABS: CALCIUM 7.4 mg/dL (8.5-10.1)
--- NOTE | 2017-10-01 06:03 | EKG ---
[facility] [address] [place] [address] Test Date: 2017-09-29 Test Time: 14:15:34 Pat Name: ANTONIA CHAVEZ Department: Room: 412 Gender: M [employer]itor: : 1950 Requested By: NHI DINERO Order Number: [id number] Reading MD: Garcia Oquendo Measurements Intervals Lynd Rate: 106 P: -6 ME: 124 QRS: 69 QRSD: 78 T: 57 QT: 314 QTc: 419 Interpretive Statements SINUS TACHYCARDIA NO SPECIFIC ECG ABNORMALITIES RI6.01 Unconfirmed report Compared to ECG 09/28/2017 17:48:24 No significant changes Electronically Signed On 10-01-2017 17:32:53 [employer] by Garcia Oquendo
[2017-10-01] MEDS: IPRATRPIUM/ALBUTEROL 0.5/2.5MG 3 ML NEBU. NEB SCH ×5 (06:28→19:29)
[2017-10-01 07:00] VITALS: BP 101/67
[2017-10-01] MEDS: DORZOLAMIDE/TIMOLOL 2%/0.5% OPHTH SOLUTION 10ML BOTTLE. OU SCH ×2 (10:10→21:50)
[2017-10-01 11:45] VITALS: BP 99/64
--- NOTE | 2017-10-01 12:14 | PDOC ---
PROGRESS NOTES Chief Complaint Chief Complaint Femur Fx, Fall Risk History of Present Illness History of Present Illness SP Day 1, Femur Fx AAOx3, NAD Pt lying down, Cough, 4L NC Incision CDI Pulmonlogy and Cardiology Following Vitals Vitals Vital Signs Date Time Temp Pulse Resp B/P (MAP) Pulse Ox O2 Delivery O2 Flow Rate FiO2 10/01/17 11:26 93 Nasal Cannula 5.0 10/01/17 07:00 98.2 93 18 101/67 (78) 98.2 Physical Exam General: Alert, Oriented X3, Cooperative, No acute distress Heart: Regular rate, Normal S1 Lungs: Clear, Other (No RRW) Abdomen: Normal bowel sounds, Soft, No tenderness Extremities: No clubbing, No cyanosis Skin: No rashes, No breakdown Labs LABS Laboratory Tests Test 09/30/17 13:55 10/01/17 04:10 10/01/17 04:11 O2 Saturation 88 % (92-99) Arterial Blood pH 7.36 (7.35-7.45) Arterial Blood pCO2 at Patient Temp 43 mmHg (35-46) Arterial Blood pO2 at Patient Temp 53 mmHg (65-108) Arterial Blood HCO3 24 mmol/L (21-28) Arterial Blood Base Excess -2 mmol/L (-3-3) FiO2 32 White Blood Count 9.0 x10^3/uL (4.0-11.0) Red Blood Count 3.50 x10^6/uL (4.30-5.70) Hemoglobin 11.1 g/dL (13.0-17.5) Hematocrit 32.1 % (39.0-53.0) Mean Corpuscular Volume 92 fL (79-100) Mean Corpuscular Hemoglobin 32 pg (25-35) Mean Corpuscular Hemoglobin Concent 34 g/dL (31-37) Red Cell Distribution Width 14.3 % (11.5-14.5) Platelet Count 115 x10^3/uL (140-400) Neutrophils (%) (Auto) 76 % (31-73) Lymphocytes (%) (Auto) 7 % (24-48) Monocytes (%) (Auto) 16 % (0-9) Eosinophils (%) (Auto) 0 % (0-3) Basophils (%) (Auto) 0 % (0-3) Neutrophils # (Auto) 6.9 x10^3uL (1.8-7.7) Lymphocytes # (Auto) 0.6 x10^3/uL (1.0-4.8) Monocytes # (Auto) 1.5 x10^3/uL (0.0-1.1) Eosinophils # (Auto) 0.0 x10^3/uL (0.0-0.7) Basophils # (Auto) 0.0 x10^3/uL (0.0-0.2) Sodium Level 136 mmol/L (136-145) Potassium Level 4.0 mmol/L (3.5-5.1) Chloride Level 104 mmol/L (98-107) Carbon Dioxide Level 24 mmol/L (21-32) Anion Gap 8 (6-14) Blood Urea Nitrogen 17 mg/dL (8-26) Creatinine 1.0 mg/dL (0.7-1.3) Estimated GFR (Cockcroft-Gault) 75.0 Glucose Level 112 mg/dL (70-99) Calcium Level 7.4 mg/dL (8.5-10.1) Review of Systems Review of Systems General: No Fever, Hunger, Fatigue CV: No Chest Pain, Palpitations Assessment and Plan Assessmemt and Plan Assessment: Fracture of femoral neck, left Hypoxia Alcoholism COPD- Probable Acute Respiratory Failure-Probable Plan: Continue Narcotics PRN Continue Wound Care Await Cardiology input EKG 09/30 Continue Breathing Treatment Continue Home Meds Continue PT/OT Recheck Labs DC SNU- probable target date Sunday Problems: Comment Review of Relevant I have reviewed the following items yareli (where applicable) has been applied. Labs Laboratory Tests Test 09/30/17 13:55 10/01/17 04:10 10/01/17 04:11 O2 Saturation 88 % (92-99) Arterial Blood pH 7.36 (7.35-7.45) Arterial Blood pCO2 at Patient Temp 43 mmHg (35-46) Arterial Blood pO2 at Patient Temp 53 mmHg (65-108) Arterial Blood HCO3 24 mmol/L (21-28) Arterial Blood Base Excess -2 mmol/L (-3-3) FiO2 32 White Blood Count 9.0 x10^3/uL (4.0-11.0) Red Blood Count 3.50 x10^6/uL (4.30-5.70) Hemoglobin 11.1 g/dL (13.0-17.5) Hematocrit 32.1 % (39.0-53.0) Mean Corpuscular Volume 92 fL (79-100) Mean Corpuscular Hemoglobin 32 pg (25-35) Mean Corpuscular Hemoglobin Concent 34 g/dL (31-37) Red Cell Distribution Width 14.3 % (11.5-14.5) Platelet Count 115 x10^3/uL (140-400) Neutrophils (%) (Auto) 76 % (31-73) Lymphocytes (%) (Auto) 7 % (24-48) Monocytes (%) (Auto) 16 % (0-9) Eosinophils (%) (Auto) 0 % (0-3) Basophils (%) (Auto) 0 % (0-3) Neutrophils # (Auto) 6.9 x10^3uL (1.8-7.7) Lymphocytes # (Auto) 0.6 x10^3/uL (1.0-4.8) Monocytes # (Auto) 1.5 x10^3/uL (0.0-1.1) Eosinophils # (Auto) 0.0 x10^3/uL (0.0-0.7) Basophils # (Auto) 0.0 x10^3/uL (0.0-0.2) Sodium Level 136 mmol/L (136-145) Potassium Level 4.0 mmol/L (3.5-5.1) Chloride Level 104 mmol/L (98-107) Carbon Dioxide Level 24 mmol/L (21-32) Anion Gap 8 (6-14) Blood Urea Nitrogen 17 mg/dL (8-26) Creatinine 1.0 mg/dL (0.7-1.3) Estimated GFR (Cockcroft-Gault) 75.0 Glucose Level 112 mg/dL (70-99) Calcium Level 7.4 mg/dL (8.5-10.1) Laboratory Tests Test 09/30/17 13:55 10/01/17 04:10 10/01/17 04:11 O2 Saturation 88 % (92-99) Arterial Blood pH 7.36 (7.35-7.45) Arterial Blood pCO2 at Patient Temp 43 mmHg (35-46) Arterial Blood pO2 at Patient Temp 53 mmHg (65-108) Arterial Blood HCO3 24 mmol/L (21-28) Arterial Blood Base Excess -2 mmol/L (-3-3) FiO2 32 White Blood Count 9.0 x10^3/uL (4.0-11.0) Red Blood Count 3.50 x10^6/uL (4.30-5.70) Hemoglobin 11.1 g/dL (13.0-17.5) Hematocrit 32.1 % (39.0-53.0) Mean Corpuscular Volume 92 fL (79-100) Mean Corpuscular Hemoglobin 32 pg (25-35) Mean Corpuscular Hemoglobin Concent 34 g/dL (31-37) Red Cell Distribution Width 14.3 % (11.5-14.5) Platelet Count 115 x10^3/uL (140-400) Neutrophils (%) (Auto) 76 % (31-73) Lymphocytes (%) (Auto) 7 % (24-48) Monocytes (%) (Auto) 16 % (0-9) Eosinophils (%) (Auto) 0 % (0-3) Basophils (%) (Auto) 0 % (0-3) Neutrophils # (Auto) 6.9 x10^3uL (1.8-7.7) Lymphocytes # (Auto) 0.6 x10^3/uL (1.0-4.8) Monocytes # (Auto) 1.5 x10^3/uL (0.0-1.1) Eosinophils # (Auto) 0.0 x10^3/uL (0.0-0.7) Basophils # (Auto) 0.0 x10^3/uL (0.0-0.2) Sodium Level 136 mmol/L (136-145) Potassium Level 4.0 mmol/L (3.5-5.1) Chloride Level 104 mmol/L (98-107) Carbon Dioxide Level 24 mmol/L (21-32) Anion Gap 8 (6-14) Blood Urea Nitrogen 17 mg/dL (8-26) Creatinine 1.0 mg/dL (0.7-1.3) Estimated GFR (Cockcroft-Gault) 75.0 Glucose Level 112 mg/dL (70-99) Calcium Level 7.4 mg/dL (8.5-10.1) Medications Current Medications Fentanyl Citrate (Fentanyl 2ml Vial) 25 mcg PRN Q15MIN PRN IV PAIN GREATER THAN 3/10 Last administered on 09/28/17 20:44; Start 09/28/17 at 17:45; Stop 09/29/17 at 13:54; Status DC Ondansetron HCl (Zofran) 4 mg PRN Q8HRS PRN IV NAUSEA/VOMITING; Start at 21:45; Stop 09/29/17 at 21:44; Status DC Morphine Sulfate 4 mg PRN Q2HR PRN IV SEVERE PAIN Last administered on 05:07; Start 09/28/17 at 21:45; Stop 09/29/17 at 21:44; Status DC Sodium Chloride 1,000 ml @ 75 mls/hr [id number] IV Last administered on 11:20; Start 09/28/17 at 22:00; Stop 09/29/17 at 21:59; Status DC Albuterol/ Ipratropium (Duoneb) 3 ml RTQID NEB Last administered on 10/01/17 06:28; Start 09/28/17 at 22:00; Stop 09/30/17 at 21:59; Status DC Ondansetron HCl (Zofran) 4 mg PRN Q6HRS PRN IV NAUSEA/VOMITING; Start at 10:00; Stop 09/29/17 at 18:00; Status DC Fentanyl Citrate (Fentanyl 2ml Vial) 25 mcg PRN Q5MIN PRN IV MILD PAIN; Start 09/29/17 at 10:00; Stop 09/29/17 at 18:00; Status DC Fentanyl Citrate (Fentanyl 2ml Vial) 50 mcg PRN Q5MIN PRN IV MODERATE PAIN; Start 09/29/17 at 10:00; Stop 09/29/17 at 18:00; Status DC Morphine Sulfate 1 mg PRN Q10MIN PRN IV SEVERE PAIN; Start 09/29/17 at 10:00; Stop 09/29/17 at 18:00; Status DC Ringer's Solution 1,000 ml @ 30 mls/hr Q24H IV ; Start 09/30/17 at 07:00; Stop 09/30/17 at 18:59; Status DC Lidocaine HCl (Xylocaine-Mpf 1% Vial) 2 ml PRN 1X PRN ID IV START; Start 09/29 at 10:00; Stop 09/29/17 at 18:00; Status DC Hydromorphone HCl (Dilaudid) 0.5 mg PRN Q10MIN PRN IV SEV PAIN, Second choice; Start 09/29/17 at 10:00; Stop 09/29/17 at 18:00; Status DC Prochlorperazine Edisylate (Compazine) 5 mg PACU PRN PRN IV NAUSEA, MRX1; Start 09/29/17 at 10:00; Stop 09/29/17 at 18:00; Status DC Dorzolamide/ Timolol (Cosopt) 1 drop BID OU Last administered on 10/01/17 10: 10; Start 09/29/17 at 21:00 Latanoprost (Xalatan) 1 drop QHS OU Last administered on 09/30/17 21:00; Start 09/29/17 at 21:00 Multivitamins 10 ml/Thiamine HCl 100 mg/Folic Acid 1 mg/Dextrose/ Sodium Chloride 1,011.2 ml @ 1,000.088 mls/hr 1X ONCE IV Last administered on 18:00; Start 09/29/17 at 18:00; Stop 09/29/17 at 19:00; Status DC Morphine Sulfate 2 mg PRN Q2HR PRN IV PAIN Last administered on 09/30/17 08: 24; Start 09/30/17 at 08:30 Morphine Sulfate 4 mg PRN Q2HR PRN IV PAIN; Start 09/30/17 at 08:30 Albuterol Sulfate (Ventolin Neb Soln) 2.5 mg 1X PACU PRN NEB SHORTNESS OF BREATH Last administered on 09/30/17 09:46; Start 09/30/17 at 09:45; Stop at 17:15; Status DC Morphine Sulfate 5 mg/Ketorolac Tromethamine 30 mg/Ropivacaine 60 ml/ Epinephrine HCl 0.5 mg/Sodium Chloride 100 ml @ 100 mls/hr 1X PERIOP ONCE INT ART Last administered on 09/30/17 10:32; Start 09/30/17 at 10:15; Stop at 11:14; Status DC Cefazolin Sodium 2 gm/Dextrose 50 ml @ 100 mls/hr 1X PREOP PRN IV PRIOR TO PROCEDURE; Start 09/30/17 at 10:15; Status UNV Cefazolin Sodium/ Dextrose 50 ml @ 100 mls/hr 1X PREOP PRN IV PRIOR TO PROCEDURE Last administered on 09/30/17 10:19; Start 09/30/17 at 10:15; Stop 09/30/17 at 14:00; Status DC Albuterol Sulfate (Ventolin Neb Soln) 2.5 mg PRN Q2HRS PRN NEB SHORTNESS OF BREATH Last administered on 09/30/17 17:17; Start 09/30/17 at 17:15 Albuterol/ Ipratropium (Duoneb) 3 ml RTQID NEB Last administered on 10/01/17 11:25; Start 10/01/17 at 08:00 Active Scripts Active Reported Lumigan (Bimatoprost) 2.5 Ml Drops 1 Drop EACHEYE QHS Dorzolamide-Timolol Eye Drops (Dorzolamide Hcl/Timolol Maleat) 10 Ml Drops 1 Drop EACHEYE BID [Eyedrops] Celebrex (Celecoxib) 200 Mg Capsule 200 Mg PO 30 Days [Cancer Med Daily] Aspirin 81 Mg Tab.chew 81 Mg PO 1X Vitals/I & O Vital Sign - Last 24 Hours 09/30/17 09/30/17 09/30/17 09/30/17 12:09 12:24 12:39 13:00 Temp 98.7 97.9 98.7 97.9 Pulse 84 83 83 96 Resp 16 16 16 18 B/P (MAP) 88/62 104/68 93/67 129/83 (98) Pulse Ox 98 99 98 87 O2 Delivery Simple Mask Simple Mask Simple Mask Nasal Cannula O2 Flow Rate 10 10 10 3.0 09/30/17 09/30/17 09/30/17 09/30/17 13:15 13:30 13:32 13:33 Pulse 86 83 Resp 18 18 B/P (MAP) 109/72 (84) 94/63 (73) Pulse Ox 90 90 90 O2 Delivery Nasal Cannula Nasal Cannula Nasal Cannula Nasal Cannula O2 Flow Rate 3.0 3.0 3.0 3.0 09/30/17 09/30/17 09/30/17 09/30/17 14:30 15:19 15:30 16:00 Temp 98.1 98.1 Pulse 75 80 82 Resp 18 18 18 B/P (MAP) 101/61 (74) 104/59 (74) 102/73 (83) Pulse Ox 93 89 90 90 O2 Delivery Nasal Cannula Nasal Cannula Nasal Cannula Nasal Cannula O2 Flow Rate 3.0 3.0 3.0 3.0 09/30/17 09/30/17 09/30/17 09/30/17 17:00 17:10 19:00 19:45 Temp 97.6 97.6 Pulse 84 86 Resp 18 18 B/P (MAP) 96/66 (76) 99/65 (76) Pulse Ox 90 89 90 88 O2 Delivery Nasal Cannula Nasal Cannula Nasal Cannula Nasal Cannula O2 Flow Rate 3.0 3.0 3.0 4.0 09/30/17 09/30/17 10/01/17 10/01/17 20:00 23:00 03:00 06:29 Temp 98.4 98.6 98.4 98.6 Pulse 76 84 Resp 18 18 B/P (MAP) 89/64 (72) 106/72 (83) Pulse Ox 92 90 91 O2 Delivery Room Air Nasal Cannula Nasal Cannula Nasal Cannula O2 Flow Rate 3.0 3.0 4.0 10/01/17 10/01/17 07:00 11:26 Temp 98.2 98.2 Pulse 93 Resp 18 B/P (MAP) 101/67 (78) Pulse Ox 90 93 O2 Delivery Nasal Cannula Nasal Cannula O2 Flow Rate 3.0 5.0 Intake and Output 09/30/17 09/30/17 10/01/17 15:00 23:00 07:00 Intake Total 1050 ml 20 ml 50 ml Output Total 525 ml 1055 ml Balance 525 ml -1035 ml 50 ml NHI DINERO III DO Oct 01, 2017 12:14
--- NOTE | 2017-10-01 15:10 | PDOC ---
PULMONARY PROGRESS NOTES Subjective PT WITH NO INCREASE SOA CONFUSION IMPROVED Vitals Vital Signs Date Time Temp Pulse Resp B/P (MAP) Pulse Ox O2 Delivery O2 Flow Rate FiO2 10/01/17 11:45 98.2 80 18 99/64 (76) 97 Nasal Cannula 3.0 98.2 ROS: No Nausea, No Chest Pain, No Abdominal Pain, No Increase Cough General: Alert, No acute distress Lungs: Clear Cardiovascular: S1, S2 Abdomen: Soft Neuro Exam: Alert Extremities: No Edema Skin: Warm Labs Laboratory Tests Test 09/30/17 13:55 10/01/17 04:10 10/01/17 04:11 O2 Saturation 88 % (92-99) Arterial Blood pH 7.36 (7.35-7.45) Arterial Blood pCO2 at Patient Temp 43 mmHg (35-46) Arterial Blood pO2 at Patient Temp 53 mmHg (65-108) Arterial Blood HCO3 24 mmol/L (21-28) Arterial Blood Base Excess -2 mmol/L (-3-3) FiO2 32 White Blood Count 9.0 x10^3/uL (4.0-11.0) Red Blood Count 3.50 x10^6/uL (4.30-5.70) Hemoglobin 11.1 g/dL (13.0-17.5) Hematocrit 32.1 % (39.0-53.0) Mean Corpuscular Volume 92 fL (79-100) Mean Corpuscular Hemoglobin 32 pg (25-35) Mean Corpuscular Hemoglobin Concent 34 g/dL (31-37) Red Cell Distribution Width 14.3 % (11.5-14.5) Platelet Count 115 x10^3/uL (140-400) Neutrophils (%) (Auto) 76 % (31-73) Lymphocytes (%) (Auto) 7 % (24-48) Monocytes (%) (Auto) 16 % (0-9) Eosinophils (%) (Auto) 0 % (0-3) Basophils (%) (Auto) 0 % (0-3) Neutrophils # (Auto) 6.9 x10^3uL (1.8-7.7) Lymphocytes # (Auto) 0.6 x10^3/uL (1.0-4.8) Monocytes # (Auto) 1.5 x10^3/uL (0.0-1.1) Eosinophils # (Auto) 0.0 x10^3/uL (0.0-0.7) Basophils # (Auto) 0.0 x10^3/uL (0.0-0.2) Sodium Level 136 mmol/L (136-145) Potassium Level 4.0 mmol/L (3.5-5.1) Chloride Level 104 mmol/L (98-107) Carbon Dioxide Level 24 mmol/L (21-32) Anion Gap 8 (6-14) Blood Urea Nitrogen 17 mg/dL (8-26) Creatinine 1.0 mg/dL (0.7-1.3) Estimated GFR (Cockcroft-Gault) 75.0 Glucose Level 112 mg/dL (70-99) Calcium Level 7.4 mg/dL (8.5-10.1) Laboratory Tests Test 10/01/17 04:10 10/01/17 04:11 White Blood Count 9.0 x10^3/uL (4.0-11.0) Red Blood Count 3.50 x10^6/uL (4.30-5.70) Hemoglobin 11.1 g/dL (13.0-17.5) Hematocrit 32.1 % (39.0-53.0) Mean Corpuscular Volume 92 fL (79-100) Mean Corpuscular Hemoglobin 32 pg (25-35) Mean Corpuscular Hemoglobin Concent 34 g/dL (31-37) Red Cell Distribution Width 14.3 % (11.5-14.5) Platelet Count 115 x10^3/uL (140-400) Neutrophils (%) (Auto) 76 % (31-73) Lymphocytes (%) (Auto) 7 % (24-48) Monocytes (%) (Auto) 16 % (0-9) Eosinophils (%) (Auto) 0 % (0-3) Basophils (%) (Auto) 0 % (0-3) Neutrophils # (Auto) 6.9 x10^3uL (1.8-7.7) Lymphocytes # (Auto) 0.6 x10^3/uL (1.0-4.8) Monocytes # (Auto) 1.5 x10^3/uL (0.0-1.1) Eosinophils # (Auto) 0.0 x10^3/uL (0.0-0.7) Basophils # (Auto) 0.0 x10^3/uL (0.0-0.2) Sodium Level 136 mmol/L (136-145) Potassium Level 4.0 mmol/L (3.5-5.1) Chloride Level 104 mmol/L (98-107) Carbon Dioxide Level 24 mmol/L (21-32) Anion Gap 8 (6-14) Blood Urea Nitrogen 17 mg/dL (8-26) Creatinine 1.0 mg/dL (0.7-1.3) Estimated GFR (Cockcroft-Gault) 75.0 Glucose Level 112 mg/dL (70-99) Calcium Level 7.4 mg/dL (8.5-10.1) Medications Active Scripts Medications Dose Route/Sig Max Daily Dose Days Date Category Lumigan (Bimatoprost) 2.5 Ml Drops 1 Drop EACHEYE QHS 09/29/17 Reported Dorzolamide-Timolol Eye Drops (Dorzolamide Hcl/Timolol Maleat) 10 Ml Drops 1 Drop EACHEYE BID 09/29/17 Reported [Eyedrops] 09/20/15 Reported Celebrex (Celecoxib) 200 Mg Capsule 200 Mg PO 30 09/20/15 Reported [Cancer Med Daily] 05/14/14 Reported Aspirin 81 Mg Tab.chew 81 Mg PO 1X 10/10/13 Reported Impression . 1. Acute respiratory failure secondary to severe COPD of the emphysematous type. 2. Recent fall suffering a fracture of the left femoral neck. 3. Elevated troponin. 4. Tobacco dependence. 5. Alcohol abuse. Plan . RESP STATUS IS COMPENSATED S/P LEFT HIP SURGERY 1. Continue oxygen supplementation. 2. Nebulized treatments. 3. CT chest FROM 09/29 REVIEWED. NO REPORT AVAILABLE. Basal pneumonia, upper lobe scarring, LLL nodule. add antibiotics 5. Postop aggressive pulmonary hygiene. VENUS BRUNO MD Oct 01, 2017 15:10
[2017-10-01] MEDS: cefTRIAXone IV Push 1 GM VIAL. IVP SCH (15:43)
[2017-10-01 16:00] VITALS: BP 109/68
--- NOTE | 2017-10-01 16:11 | CARD ---
APPROVED REPORT EXAM: Two-dimensional and M-mode echocardiogram with Doppler and color Doppler. Other Information Quality : GoodHR: 92bpm INDICATION Chest Pain DX ELEVATED TROPS 2D DIMENSIONS Left Atrium(2D)2.5 (1.6-4.0cm)IVSd1.3 (0.7-1.1cm) Aortic Root(2D)3.8 (2.0-3.7cm)LVDd4.1 (3.9-5.9cm) LVOT Diameter2.0 (1.8-2.4cm)PWd1.1 (0.7-1.1cm) LVDs2.8 (2.5-4.0cm)FS (%) 31.5 % SV43.4 mlLVEF(%)60.0 (>50%) Aortic Valve AoV Peak Des.147.4cm/sAoV VTI24.2cm AO Peak GR.8.7mmHgLVOT Peak Des.148.7cm/s AO Mean GR.4mmHgAVA (VMAX)3.13cm2 Mitral Valve MV E Oxyxzutk11.9cm/sMV DECEL [id number] MV A Ofjpcmso51.7cm/sE/A Ratio1.3 Tricuspid Valve TR P. Jymwgiws950ws/sRAP EYWMSRWK3mgPl TR Peak Gr.05spYnKBPN13ydUx LEFT VENTRICLE The left ventricle is normal size. There is mild concentric left ventricular hypertrophy. Left ventri earnest systolic function is normal. The Ejection Fraction is 55-60%. There is normal LV segmental wall m otion. RIGHT VENTRICLE The right ventricle is normal size. The right ventricular systolic function is normal. ATRIA The left atrium size is normal. The right atrium size is normal. The interatrial septum is intact wit h no evidence for an atrial septal defect or patent foramen ovale as noted on 2-D or Doppler imaging. AORTIC VALVE The aortic valve is calcified but opens well. Doppler and Color Flow revealed no significant aortic r egurgitation. There is no significant aortic valvular stenosis. MITRAL VALVE The mitral valve is calcified but opens well. There is no evidence of mitral valve prolapse. There is no mitral valve stenosis. Doppler and Color-flow revealed mild mitral regurgitation. TRICUSPID VALVE The tricuspid valve is normal in structure. Doppler and Color Flow revealed mild to moderate tricuspi d regurgitation. There is moderate pulmonary hypertension. The PA pressure was estimated at 47 mmHg. There is no tricuspid valve prolapse or vegetation. There is no tricuspid valve stenosis. PULMONIC VALVE The pulmonary valve is normal in structure and function. Doppler and Color Flow revealed no pulmonic valvular regurgitation. There is no pulmonic valvular stenosis. GREAT VESSELS The aortic root is normal in size. The ascending aorta is normal in size. The IVC is normal in size a nd collapses >50% with inspiration. PERICARDIAL EFFUSION There is no pleural effusion. There is no evidence of significant pericardial effusion. Critical Notification Critical Value: No <Conclusion> Left ventricle systolic function is normal. The Ejection Fraction is 55-60%. There is normal LV segmental wall motion. Mild mitral regurgitation. Mild to moderate tricuspid regurgitation. There is moderate pulmonary hypertension. The PA pressure was estimated at 47 mmHg. There is no evidence of significant pericardial effusion.
[2017-10-01 19:00] VITALS: BP 108/69
[2017-10-01] MEDS: LATANOPROST 0.005% OPHTH SOLUTION 2.5ML BOTTLE. OU SCH (21:00)
[2017-10-01 23:00] VITALS: BP 109/76
[2017-10-02 03:00] VITALS: BP 119/74
[2017-10-02 04:49] LABS: BASO % 0 % (0-3); EOS % 0 % (0-3); HEMATOCRIT 32.5 % (39.0-53.0); LYMPH # 0.6 x10^3/uL (1.0-4.8); LYMPH % 8 % (24-48); MEAN CORPUSCULAR HEMOGLOBIN 31 pg (25-35); MEAN CORPUSCULAR HGB CONC 34 g/dL (31-37); MEAN CORPUSCULAR VOLUME 91 fL (79-100); MONO % 17 % (0-9); NEUT % 74 % (31-73); PLATELET COUNT 145 x10^3/uL (140-400); RED BLOOD COUNT 3.56 x10^6/uL (4.30-5.70); RED CELL DISTRIBUTION WIDTH 13.8 % (11.5-14.5); WHITE BLOOD COUNT 7.7 x10^3/uL (4.0-11.0)
[2017-10-02 05:05] LABS: CALCIUM 7.7 mg/dL (8.5-10.1); CREATININE 0.9 mg/dL (0.7-1.3); GFR 84.7; MAGNESIUM 2.2 mg/dL (1.8-2.4); POTASSIUM 3.6 mmol/L (3.5-5.1)
[2017-10-02] MEDS: IPRATRPIUM/ALBUTEROL 0.5/2.5MG 3 ML NEBU. NEB SCH ×4 (05:27→19:13)
[2017-10-02 07:00] VITALS: BP 134/82
[2017-10-02] MEDS ORDERED: CHOLECALCIFEROL (VITAMIN D3) 1,000 UNIT TABLET PO SCH (09:00)
[2017-10-02] MEDS: DORZOLAMIDE/TIMOLOL 2%/0.5% OPHTH SOLUTION 10ML BOTTLE. OU SCH ×2 (09:29→21:49)
[2017-10-02] MEDS: HYDROcodone/APAP 5/325MG 1 TAB TABLET PO PRN ×2 (09:32→14:34)
[2017-10-02 11:59] VITALS: BP 122/77
[2017-10-02] MEDS ORDERED: CALCIUM GLUCONATE 1,000 MG in IV NORMAL SALINE 100ML 100 ML IV ONE (13:00)
[2017-10-02] MEDS ORDERED: ERGOCALCIFEROL (VITAMIN D2) 50,000 UNIT CAPSULE. PO SCH (13:00)
--- NOTE | 2017-10-02 13:35 | RAD ---
CT chest without contrast Indication: Shortness of breath and cough. History of colon cancer. Technique: CT chest without IV contrast with multiplanar reformats. Comparison: CT from 06/21/2017. Findings: Limited study due to lack of IV contrast. Neck bases clear. No axillary, mediastinal or hilar adenopathy. Calcified left hilar lymph nodes. Trace left and small right pleural effusion with passive atelectasis of the adjacent lung parenchyma. Heart is normal in size. Coronary artery calcifications suggesting coronary artery disease. No pericardial effusion. Severe upper lobe dominant emphysema with parenchymal scarring and subpleural blebs. Reticulonodular opacities are seen in the right lower lobe which are new from previous study. There is motion artifact at the lung bases limiting optimal evaluation. Multiple lung nodules are noted. Index nodules as follows: -Stable 6 mm nodule in the right major fissure (series 2 image 49) -Interval increase in the size of another right major fissure nodule measuring 7 mm (series 2 image 51), previously 5 mm. -Stable 5 mm spiculated opacity in the right lung apex (series 2 image 14). -Stable 7 mm pulmonary nodule in the left major fissure (series 2 image 48). -Stable 7 mm pleural-based nodule in the left lower lobe (series 2 image 45)). Visualized noncontrast appearance of the liver, spleen, pancreas and right adrenals are within normal limits. Stable 1.5 mm left adrenal nodule. New compression deformity of the T4 vertebral body noted with no retropulsion the spinal canal. No lytic or blastic lesions within the bones. Impression: Motion artifact noted at the lung bases limiting optimal evaluation. 1. New right lower lobe reticulonodular opacities concerning for aspiration or pneumonia. Stable severe emphysema in the upper lobes. 2. Trace bilateral, right more than left pleural effusions with either passive atelectasis or pneumonia of the adjacent lung parenchyma. 3. Stable bilateral pulmonary nodules/nodular opacities with one nodule demonstrating interval increase in size. 4. Stable left adrenal nodule dating back to 2012 and most likely represents adrenal adenoma. 5. New T4 compression deformity with loss of approximately 50% vertebral body height without retropulsion into spinal canal PQRS Compliance Statement: One or more of the following individualized dose reduction techniques were utilized for this examination: 1. Automated exposure control 2. Adjustment of the mA and/or kV according to patient size 3. Use of iterative reconstruction technique
--- NOTE | 2017-10-02 14:13 | PDOC ---
PULMONARY PROGRESS NOTES Subjective PT WITH NO INCREASE SOA CONFUSION IMPROVED Vitals Vital Signs Date Time Temp Pulse Resp B/P (MAP) Pulse Ox O2 Delivery O2 Flow Rate FiO2 10/02/17 12:06 93 Nasal Cannula 4.0 10/02/17 11:59 97.4 84 18 122/77 (92) 97.4 ROS: No Nausea, No Chest Pain, No Abdominal Pain, No Increase Cough General: Alert, No acute distress Lungs: Clear Cardiovascular: S1, S2 Abdomen: Soft Neuro Exam: Alert Extremities: No Edema Skin: Warm Labs Laboratory Tests Test 10/01/17 04:10 10/01/17 04:11 10/02/17 04:05 White Blood Count 9.0 x10^3/uL (4.0-11.0) 7.7 x10^3/uL (4.0-11.0) Red Blood Count 3.50 x10^6/uL (4.30-5.70) 3.56 x10^6/uL (4.30-5.70) Hemoglobin 11.1 g/dL (13.0-17.5) 11.0 g/dL (13.0-17.5) Hematocrit 32.1 % (39.0-53.0) 32.5 % (39.0-53.0) Mean Corpuscular Volume 92 fL (79-100) 91 fL (79-100) Mean Corpuscular Hemoglobin 32 pg (25-35) 31 pg (25-35) Mean Corpuscular Hemoglobin Concent 34 g/dL (31-37) 34 g/dL (31-37) Red Cell Distribution Width 14.3 % (11.5-14.5) 13.8 % (11.5-14.5) Platelet Count 115 x10^3/uL (140-400) 145 x10^3/uL (140-400) Neutrophils (%) (Auto) 76 % (31-73) 74 % (31-73) Lymphocytes (%) (Auto) 7 % (24-48) 8 % (24-48) Monocytes (%) (Auto) 16 % (0-9) 17 % (0-9) Eosinophils (%) (Auto) 0 % (0-3) 0 % (0-3) Basophils (%) (Auto) 0 % (0-3) 0 % (0-3) Neutrophils # (Auto) 6.9 x10^3uL (1.8-7.7) 5.7 x10^3uL (1.8-7.7) Lymphocytes # (Auto) 0.6 x10^3/uL (1.0-4.8) 0.6 x10^3/uL (1.0-4.8) Monocytes # (Auto) 1.5 x10^3/uL (0.0-1.1) 1.3 x10^3/uL (0.0-1.1) Eosinophils # (Auto) 0.0 x10^3/uL (0.0-0.7) 0.0 x10^3/uL (0.0-0.7) Basophils # (Auto) 0.0 x10^3/uL (0.0-0.2) 0.0 x10^3/uL (0.0-0.2) Sodium Level 136 mmol/L (136-145) 137 mmol/L (136-145) Potassium Level 4.0 mmol/L (3.5-5.1) 3.6 mmol/L (3.5-5.1) Chloride Level 104 mmol/L (98-107) 104 mmol/L (98-107) Carbon Dioxide Level 24 mmol/L (21-32) 26 mmol/L (21-32) Anion Gap 8 (6-14) 7 (6-14) Blood Urea Nitrogen 17 mg/dL (8-26) 15 mg/dL (8-26) Creatinine 1.0 mg/dL (0.7-1.3) 0.9 mg/dL (0.7-1.3) Estimated GFR (Cockcroft-Gault) 75.0 84.7 Glucose Level 112 mg/dL (70-99) 109 mg/dL (70-99) Calcium Level 7.4 mg/dL (8.5-10.1) 7.7 mg/dL (8.5-10.1) Magnesium Level 2.2 mg/dL (1.8-2.4) Laboratory Tests Test 10/02/17 04:05 White Blood Count 7.7 x10^3/uL (4.0-11.0) Red Blood Count 3.56 x10^6/uL (4.30-5.70) Hemoglobin 11.0 g/dL (13.0-17.5) Hematocrit 32.5 % (39.0-53.0) Mean Corpuscular Volume 91 fL (79-100) Mean Corpuscular Hemoglobin 31 pg (25-35) Mean Corpuscular Hemoglobin Concent 34 g/dL (31-37) Red Cell Distribution Width 13.8 % (11.5-14.5) Platelet Count 145 x10^3/uL (140-400) Neutrophils (%) (Auto) 74 % (31-73) Lymphocytes (%) (Auto) 8 % (24-48) Monocytes (%) (Auto) 17 % (0-9) Eosinophils (%) (Auto) 0 % (0-3) Basophils (%) (Auto) 0 % (0-3) Neutrophils # (Auto) 5.7 x10^3uL (1.8-7.7) Lymphocytes # (Auto) 0.6 x10^3/uL (1.0-4.8) Monocytes # (Auto) 1.3 x10^3/uL (0.0-1.1) Eosinophils # (Auto) 0.0 x10^3/uL (0.0-0.7) Basophils # (Auto) 0.0 x10^3/uL (0.0-0.2) Sodium Level 137 mmol/L (136-145) Potassium Level 3.6 mmol/L (3.5-5.1) Chloride Level 104 mmol/L (98-107) Carbon Dioxide Level 26 mmol/L (21-32) Anion Gap 7 (6-14) Blood Urea Nitrogen 15 mg/dL (8-26) Creatinine 0.9 mg/dL (0.7-1.3) Estimated GFR (Cockcroft-Gault) 84.7 Glucose Level 109 mg/dL (70-99) Calcium Level 7.7 mg/dL (8.5-10.1) Magnesium Level 2.2 mg/dL (1.8-2.4) Medications Active Scripts Medications Dose Route/Sig Max Daily Dose Days Date Category Lumigan (Bimatoprost) 2.5 Ml Drops 1 Drop EACHEYE Q 09/29/17 Reported Dorzolamide-Timolol Eye Drops (Dorzolamide Hcl/Timolol Maleat) 10 Ml Drops 1 Drop EACHEYE BID 09/29/17 Reported [Eyedrops] 09/20/15 Reported Celebrex (Celecoxib) 200 Mg Capsule 200 Mg PO 30 09/20/15 Reported [Cancer Med Daily] 05/14/14 Reported Aspirin 81 Mg Tab.chew 81 Mg PO 1X 10/10/13 Reported Impression . 1. Acute respiratory failure secondary to severe COPD of the emphysematous type. 2. Recent fall suffering a fracture of the left femoral neck. 3. Elevated troponin. 4. Tobacco dependence. 5. Alcohol abuse. 6. Abnormal ct chest with basal pneumonia and multiple lung nodules/ Multiple lung nodules follows: -Stable 6 mm nodule in the right major fissure (series 2 image 49) -Interval increase in the size of another right major fissure nodule measuring - 7 mm (series 2 image 51), previously 5 mm. -Stable 5 mm spiculated opacity in the right lung apex (series 2 image 14) . -Stable 7 mm pulmonary nodule in the left major fissure (series 2 image 48) . -Stable 7 mm pleural-based nodule in the left lower lobe (series 2 image 45) ). Plan . RESP STATUS IS COMPENSATED S/P LEFT HIP SURGERY 1. Continue oxygen supplementation. 2. Nebulized treatments. 3. Repeat ct chest in 3 months regarding lung nodules. spoke with sister . she will make appointment in our office in 2 months 5. Postop aggressive pulmonary hygiene. 6. Antibiotics VENUS BRUNO MD Oct 02, 2017 14:13
--- NOTE | 2017-10-02 14:19 | PDOC ---
PROGRESS NOTES Chief Complaint Chief Complaint Femur Fx, Fall Risk Dec PO Mod to severe PCM Vit D def Emphysema CUrent smoker Acute bronchitis History of Present Illness History of Present Illness NOt eating per sister SIster concerned he is depressed- mentions antidepressant - pt doesnt think so NUtrition on case, only took 1 boost Off iVF VIt D only 6 STill coughing on rocephin 1 gm Plan: Add cough med Since pPlace still in the works, start procalamine for now STart ergocalciferol q weekly x 12 weeks, 50,000 units PT.OT COnt duoneb PO abx on dc NIcotine patch Trial of mariniol - agrees Dw sister and RN at bedside Vitals Vitals Vital Signs Date Time Temp Pulse Resp B/P (MAP) Pulse Ox O2 Delivery O2 Flow Rate FiO2 10/02/17 12:06 93 Nasal Cannula 4.0 10/02/17 11:59 97.4 84 18 122/77 (92) 97.4 Physical Exam General: Alert, Oriented X3, Cooperative, No acute distress Heart: Regular rate, Normal S1 Lungs: Clear Abdomen: Normal bowel sounds, Soft, No tenderness Extremities: No clubbing, No cyanosis Skin: No rashes, No breakdown Labs LABS Laboratory Tests Test 10/02/17 04:05 White Blood Count 7.7 x10^3/uL (4.0-11.0) Red Blood Count 3.56 x10^6/uL (4.30-5.70) Hemoglobin 11.0 g/dL (13.0-17.5) Hematocrit 32.5 % (39.0-53.0) Mean Corpuscular Volume 91 fL (79-100) Mean Corpuscular Hemoglobin 31 pg (25-35) Mean Corpuscular Hemoglobin Concent 34 g/dL (31-37) Red Cell Distribution Width 13.8 % (11.5-14.5) Platelet Count 145 x10^3/uL (140-400) Neutrophils (%) (Auto) 74 % (31-73) Lymphocytes (%) (Auto) 8 % (24-48) Monocytes (%) (Auto) 17 % (0-9) Eosinophils (%) (Auto) 0 % (0-3) Basophils (%) (Auto) 0 % (0-3) Neutrophils # (Auto) 5.7 x10^3uL (1.8-7.7) Lymphocytes # (Auto) 0.6 x10^3/uL (1.0-4.8) Monocytes # (Auto) 1.3 x10^3/uL (0.0-1.1) Eosinophils # (Auto) 0.0 x10^3/uL (0.0-0.7) Basophils # (Auto) 0.0 x10^3/uL (0.0-0.2) Sodium Level 137 mmol/L (136-145) Potassium Level 3.6 mmol/L (3.5-5.1) Chloride Level 104 mmol/L (98-107) Carbon Dioxide Level 26 mmol/L (21-32) Anion Gap 7 (6-14) Blood Urea Nitrogen 15 mg/dL (8-26) Creatinine 0.9 mg/dL (0.7-1.3) Estimated GFR (Cockcroft-Gault) 84.7 Glucose Level 109 mg/dL (70-99) Calcium Level 7.7 mg/dL (8.5-10.1) Magnesium Level 2.2 mg/dL (1.8-2.4) Review of Systems Review of Systems weak, couhg, no inc in soa, cp, abd pain Assessment and Plan Assessmemt and Plan Problems Medical Problems: (1) Fracture of femoral neck, left Status: Acute (2) Hypoxia Status: Acute Problems: Comment Review of Relevant I have reviewed the following items yareli (where applicable) has been applied. Labs Laboratory Tests Test 10/01/17 04:10 10/01/17 04:11 10/02/17 04:05 White Blood Count 9.0 x10^3/uL (4.0-11.0) 7.7 x10^3/uL (4.0-11.0) Red Blood Count 3.50 x10^6/uL (4.30-5.70) 3.56 x10^6/uL (4.30-5.70) Hemoglobin 11.1 g/dL (13.0-17.5) 11.0 g/dL (13.0-17.5) Hematocrit 32.1 % (39.0-53.0) 32.5 % (39.0-53.0) Mean Corpuscular Volume 92 fL (79-100) 91 fL (79-100) Mean Corpuscular Hemoglobin 32 pg (25-35) 31 pg (25-35) Mean Corpuscular Hemoglobin Concent 34 g/dL (31-37) 34 g/dL (31-37) Red Cell Distribution Width 14.3 % (11.5-14.5) 13.8 % (11.5-14.5) Platelet Count 115 x10^3/uL (140-400) 145 x10^3/uL (140-400) Neutrophils (%) (Auto) 76 % (31-73) 74 % (31-73) Lymphocytes (%) (Auto) 7 % (24-48) 8 % (24-48) Monocytes (%) (Auto) 16 % (0-9) 17 % (0-9) Eosinophils (%) (Auto) 0 % (0-3) 0 % (0-3) Basophils (%) (Auto) 0 % (0-3) 0 % (0-3) Neutrophils # (Auto) 6.9 x10^3uL (1.8-7.7) 5.7 x10^3uL (1.8-7.7) Lymphocytes # (Auto) 0.6 x10^3/uL (1.0-4.8) 0.6 x10^3/uL (1.0-4.8) Monocytes # (Auto) 1.5 x10^3/uL (0.0-1.1) 1.3 x10^3/uL (0.0-1.1) Eosinophils # (Auto) 0.0 x10^3/uL (0.0-0.7) 0.0 x10^3/uL (0.0-0.7) Basophils # (Auto) 0.0 x10^3/uL (0.0-0.2) 0.0 x10^3/uL (0.0-0.2) Sodium Level 136 mmol/L (136-145) 137 mmol/L (136-145) Potassium Level 4.0 mmol/L (3.5-5.1) 3.6 mmol/L (3.5-5.1) Chloride Level 104 mmol/L (98-107) 104 mmol/L (98-107) Carbon Dioxide Level 24 mmol/L (21-32) 26 mmol/L (21-32) Anion Gap 8 (6-14) 7 (6-14) Blood Urea Nitrogen 17 mg/dL (8-26) 15 mg/dL (8-26) Creatinine 1.0 mg/dL (0.7-1.3) 0.9 mg/dL (0.7-1.3) Estimated GFR (Cockcroft-Gault) 75.0 84.7 Glucose Level 112 mg/dL (70-99) 109 mg/dL (70-99) Calcium Level 7.4 mg/dL (8.5-10.1) 7.7 mg/dL (8.5-10.1) Magnesium Level 2.2 mg/dL (1.8-2.4) Laboratory Tests Test 10/02/17 04:05 White Blood Count 7.7 x10^3/uL (4.0-11.0) Red Blood Count 3.56 x10^6/uL (4.30-5.70) Hemoglobin 11.0 g/dL (13.0-17.5) Hematocrit 32.5 % (39.0-53.0) Mean Corpuscular Volume 91 fL (79-100) Mean Corpuscular Hemoglobin 31 pg (25-35) Mean Corpuscular Hemoglobin Concent 34 g/dL (31-37) Red Cell Distribution Width 13.8 % (11.5-14.5) Platelet Count 145 x10^3/uL (140-400) Neutrophils (%) (Auto) 74 % (31-73) Lymphocytes (%) (Auto) 8 % (24-48) Monocytes (%) (Auto) 17 % (0-9) Eosinophils (%) (Auto) 0 % (0-3) Basophils (%) (Auto) 0 % (0-3) Neutrophils # (Auto) 5.7 x10^3uL (1.8-7.7) Lymphocytes # (Auto) 0.6 x10^3/uL (1.0-4.8) Monocytes # (Auto) 1.3 x10^3/uL (0.0-1.1) Eosinophils # (Auto) 0.0 x10^3/uL (0.0-0.7) Basophils # (Auto) 0.0 x10^3/uL (0.0-0.2) Sodium Level 137 mmol/L (136-145) Potassium Level 3.6 mmol/L (3.5-5.1) Chloride Level 104 mmol/L (98-107) Carbon Dioxide Level 26 mmol/L (21-32) Anion Gap 7 (6-14) Blood Urea Nitrogen 15 mg/dL (8-26) Creatinine 0.9 mg/dL (0.7-1.3) Estimated GFR (Cockcroft-Gault) 84.7 Glucose Level 109 mg/dL (70-99) Calcium Level 7.7 mg/dL (8.5-10.1) Magnesium Level 2.2 mg/dL (1.8-2.4) Medications Current Medications Fentanyl Citrate (Fentanyl 2ml Vial) 25 mcg PRN Q15MIN PRN IV PAIN GREATER THAN 3/10 Last administered on 09/28/17 20:44; Start 09/28/17 at 17:45; Stop 09/29/17 at 13:54; Status DC Ondansetron HCl (Zofran) 4 mg PRN Q8HRS PRN IV NAUSEA/VOMITING; Start at 21:45; Stop 09/29/17 at 21:44; Status DC Morphine Sulfate 4 mg PRN Q2HR PRN IV SEVERE PAIN Last administered on 05:07; Start 09/28/17 at 21:45; Stop 09/29/17 at 21:44; Status DC Sodium Chloride 1,000 ml @ 75 mls/hr [id number] IV Last administered on 11:20; Start 09/28/17 at 22:00; Stop 09/29/17 at 21:59; Status DC Albuterol/ Ipratropium (Duoneb) 3 ml RTQID NEB Last administered on 10/01/17 06:28; Start 09/28/17 at 22:00; Stop 09/30/17 at 21:59; Status DC Ondansetron HCl (Zofran) 4 mg PRN Q6HRS PRN IV NAUSEA/VOMITING; Start at 10:00; Stop 09/29/17 at 18:00; Status DC Fentanyl Citrate (Fentanyl 2ml Vial) 25 mcg PRN Q5MIN PRN IV MILD PAIN; Start 09/29/17 at 10:00; Stop 09/29/17 at 18:00; Status DC Fentanyl Citrate (Fentanyl 2ml Vial) 50 mcg PRN Q5MIN PRN IV MODERATE PAIN; Start 09/29/17 at 10:00; Stop 09/29/17 at 18:00; Status DC Morphine Sulfate 1 mg PRN Q10MIN PRN IV SEVERE PAIN; Start 09/29/17 at 10:00; Stop 09/29/17 at 18:00; Status DC Ringer's Solution 1,000 ml @ 30 mls/hr Q24H IV ; Start 09/30/17 at 07:00; Stop 09/30/17 at 18:59; Status DC Lidocaine HCl (Xylocaine-Mpf 1% Vial) 2 ml PRN 1X PRN ID IV START; Start 09/29 at 10:00; Stop 09/29/17 at 18:00; Status DC Hydromorphone HCl (Dilaudid) 0.5 mg PRN Q10MIN PRN IV SEV PAIN, Second choice; Start 09/29/17 at 10:00; Stop 09/29/17 at 18:00; Status DC Prochlorperazine Edisylate (Compazine) 5 mg PACU PRN PRN IV NAUSEA, MRX1; Start 09/29/17 at 10:00; Stop 09/29/17 at 18:00; Status DC Dorzolamide/ Timolol (Cosopt) 1 drop BID OU Last administered on 10/02/17 09: 29; Start 09/29/17 at 21:00 Latanoprost (Xalatan) 1 drop QHS OU Last administered on 10/01/17 21:00; Start 09/29/17 at 21:00 Multivitamins 10 ml/Thiamine HCl 100 mg/Folic Acid 1 mg/Dextrose/ Sodium Chloride 1,011.2 ml @ 1,000.088 mls/hr 1X ONCE IV Last administered on 18:00; Start 09/29/17 at 18:00; Stop 09/29/17 at 19:00; Status DC Morphine Sulfate 2 mg PRN Q2HR PRN IV MODERATE PAIN Last administered on 08:24; Start 09/30/17 at 08:30 Morphine Sulfate 4 mg PRN Q2HR PRN IV SEVERE PAIN; Start 09/30/17 at 08:30 Albuterol Sulfate (Ventolin Neb Soln) 2.5 mg 1X PACU PRN NEB SHORTNESS OF BREATH Last administered on 09/30/17 09:46; Start 09/30/17 at 09:45; Stop at 17:15; Status DC Morphine Sulfate 5 mg/Ketorolac Tromethamine 30 mg/Ropivacaine 60 ml/ Epinephrine HCl 0.5 mg/Sodium Chloride 100 ml @ 100 mls/hr 1X PERIOP ONCE INT ART Last administered on 09/30/17 10:32; Start 09/30/17 at 10:15; Stop at 11:14; Status DC Cefazolin Sodium 2 gm/Dextrose 50 ml @ 100 mls/hr 1X PREOP PRN IV PRIOR TO PROCEDURE; Start 09/30/17 at 10:15; Status UNV Cefazolin Sodium/ Dextrose 50 ml @ 100 mls/hr 1X PREOP PRN IV PRIOR TO PROCEDURE Last administered on 09/30/17 10:19; Start 09/30/17 at 10:15; Stop 09/30/17 at 14:00; Status DC Albuterol Sulfate (Ventolin Neb Soln) 2.5 mg PRN Q2HRS PRN NEB SHORTNESS OF BREATH Last administered on 09/30/17 17:17; Start 09/30/17 at 17:15 Albuterol/ Ipratropium (Duoneb) 3 ml RTQID NEB Last administered on 10/02/17 12:04; Start 10/01/17 at 08:00 Propofol 20 ml @ As Directed STK-MED ONCE IV ; Start 09/30/17 at 09:06; Stop 10/01/17 at 12:20; Status DC Lidocaine HCl (Lidocaine Pf 2% Vial) 5 ml STK-MED ONCE .ROUTE ; Start 09/30/17 at 09:06; Stop 10/01/17 at 12:20; Status DC Dexamethasone Sodium Phosphate (Decadron) 20 mg STK-MED ONCE .ROUTE ; Start at 09:06; Stop 10/01/17 at 12:20; Status DC Ondansetron HCl (Zofran) 4 mg STK-MED ONCE .ROUTE ; Start 09/30/17 at 09:06; Stop 10/01/17 at 12:20; Status DC Phenylephrine HCl 1 mg STK-MED ONCE IV ; Start 09/30/17 at 09:06; Stop at 12:20; Status DC Ephedrine Sulfate (Akovaz) 50 mg STK-MED ONCE .ROUTE ; Start 09/30/17 at 09:07 ; Stop 10/01/17 at 12:20; Status DC Fentanyl Citrate (Fentanyl 5ml Vial) 250 mcg STK-MED ONCE .ROUTE ; Start at 09:07; Stop 10/01/17 at 12:20; Status DC Rocuronium Ayr (Zemuron) 50 mg STK-MED ONCE .ROUTE ; Start 09/30/17 at 09: 08; Stop 10/01/17 at 12:20; Status DC Succinylcholine Chloride (Anectine) 200 mg STK-MED ONCE .ROUTE ; Start at 09:09; Stop 10/01/17 at 12:20; Status DC Albuterol Sulfate (Ventolin Neb Soln) 2.5 mg STK-MED ONCE .ROUTE ; Start at 09:42; Stop 10/01/17 at 12:21; Status DC Cefazolin Sodium/ Dextrose 50 ml @ As Directed STK-MED ONCE IV ; Start at 09:48; Stop 10/01/17 at 12:21; Status DC Phenylephrine HCl (Guilherme-Synephrine Inj) 10 mg STK-MED ONCE .ROUTE ; Start at 10:35; Stop 10/01/17 at 12:21; Status DC Ceftriaxone Sodium 1 gm/ Dextrose 50 ml @ 100 mls/hr Q24H IV ; Start 10/01/17 at 15:15; Status UNV Ceftriaxone Sodium (Rocephin) 1 gm Q24H IVP Last administered on 10/01/17 15: 43; Start 10/01/17 at 16:00 Acetaminophen/ Hydrocodone Bitart (Lortab 5/325) 1 tab PRN Q4HRS PRN PO PAIN Last administered on 10/02/17 09:32; Start 10/01/17 at 16:30 Vitamin D (Vitamin D3) 1,000 unit DAILY PO Last administered on 10/02/17 09: 31; Start 10/02/17 at 09:00 Ergocalciferol (Vitamin D2) 50,000 unit WEEKLY PO Last administered on 14:07; Start 10/02/17 at 13:00 Calcium Gluconate 1000 mg/Sodium Chloride 110 ml @ 220 mls/hr 1X ONCE IV Last administered on 10/02/17 14:07; Start 10/02/17 at 13:00; Stop 10/02/17 at 13:29; Status DC Active Scripts Active Reported Lumigan (Bimatoprost) 2.5 Ml Drops 1 Drop EACHEYE QHS Dorzolamide-Timolol Eye Drops (Dorzolamide Hcl/Timolol Maleat) 10 Ml Drops 1 Drop EACHEYE BID [Eyedrops] Celebrex (Celecoxib) 200 Mg Capsule 200 Mg PO 30 Days [Cancer Med Daily] Aspirin 81 Mg Tab.chew 81 Mg PO 1X Vitals/I & O Vital Sign - Last 24 Hours 10/01/17 10/01/17 10/01/17 10/01/17 15:37 16:00 19:00 19:30 Temp 98.3 98.3 98.3 98.3 Pulse 100 96 Resp 18 18 B/P (MAP) 109/68 (82) 108/69 (82) Pulse Ox 91 90 O2 Delivery Nasal Cannula Nasal Cannula Nasal Cannula Room Air O2 Flow Rate 5.0 3.0 6.0 10/01/17 10/01/17 10/02/17 10/02/17 20:00 23:00 03:00 05:27 Temp 98.2 97.7 98.2 97.7 Pulse 85 83 Resp 18 18 B/P (MAP) 109/76 (87) 119/74 (89) Pulse Ox 95 90 95 O2 Delivery Nasal Cannula Nasal Cannula Nasal Cannula Nasal Cannula O2 Flow Rate 6.0 4.0 4.0 5.0 10/02/17 10/02/17 10/02/17 10/02/17 07:00 08:00 09:32 10:32 Temp 98.1 98.1 Pulse 88 Resp 20 18 16 B/P (MAP) 134/82 (99) Pulse Ox 91 O2 Delivery Nasal Cannula Nasal Cannula Nasal Cannula Nasal Cannula O2 Flow Rate 4.0 4.0 5.0 4.0 10/02/17 10/02/17 11:59 12:06 Temp 97.4 97.4 Pulse 84 Resp 18 B/P (MAP) 122/77 (92) Pulse Ox 93 93 O2 Delivery Nasal Cannula Nasal Cannula O2 Flow Rate 4.0 4.0 Intake and Output 10/01/17 10/01/17 10/02/17 15:00 23:00 07:00 Output Total 475 ml 350 ml Balance -475 ml -350 ml LESLY REILLY MD Oct 02, 2017 14:19
[2017-10-02] MEDS ORDERED: NICOTINE 21MG PATCH. TD PRN (14:30)
--- NOTE | 2017-10-02 14:33 | PDOC ---
CARDIO Progress Notes Date and Time Date of Service 10/02/2017 Time of Evaluation 1430 Subjective Subjective: No Chest Pain, No shortness of breath, No Palpitations, Other ( surgical hip pain controlled, tolerating rehab) Vitals Vitals Vital Signs Date Time Temp Pulse Resp B/P (MAP) Pulse Ox O2 Delivery O2 Flow Rate FiO2 10/02/17 12:06 93 Nasal Cannula 4.0 10/02/17 11:59 97.4 84 18 122/77 (92) 97.4 Weight Weight [ ] Input and Output Intake and Output Intake and Output 10/02/17 07:00 Output Total 825 ml Balance -825 ml Output Urine Total 825 ml Laboratory Labs Laboratory Tests Test 10/02/17 04:05 White Blood Count 7.7 x10^3/uL (4.0-11.0) Red Blood Count 3.56 x10^6/uL (4.30-5.70) Hemoglobin 11.0 g/dL (13.0-17.5) Hematocrit 32.5 % (39.0-53.0) Mean Corpuscular Volume 91 fL (79-100) Mean Corpuscular Hemoglobin 31 pg (25-35) Mean Corpuscular Hemoglobin Concent 34 g/dL (31-37) Red Cell Distribution Width 13.8 % (11.5-14.5) Platelet Count 145 x10^3/uL (140-400) Neutrophils (%) (Auto) 74 % (31-73) Lymphocytes (%) (Auto) 8 % (24-48) Monocytes (%) (Auto) 17 % (0-9) Eosinophils (%) (Auto) 0 % (0-3) Basophils (%) (Auto) 0 % (0-3) Neutrophils # (Auto) 5.7 x10^3uL (1.8-7.7) Lymphocytes # (Auto) 0.6 x10^3/uL (1.0-4.8) Monocytes # (Auto) 1.3 x10^3/uL (0.0-1.1) Eosinophils # (Auto) 0.0 x10^3/uL (0.0-0.7) Basophils # (Auto) 0.0 x10^3/uL (0.0-0.2) Sodium Level 137 mmol/L (136-145) Potassium Level 3.6 mmol/L (3.5-5.1) Chloride Level 104 mmol/L (98-107) Carbon Dioxide Level 26 mmol/L (21-32) Anion Gap 7 (6-14) Blood Urea Nitrogen 15 mg/dL (8-26) Creatinine 0.9 mg/dL (0.7-1.3) Estimated GFR (Cockcroft-Gault) 84.7 Glucose Level 109 mg/dL (70-99) Calcium Level 7.7 mg/dL (8.5-10.1) Magnesium Level 2.2 mg/dL (1.8-2.4) Physical Exam HEENT: Neck Supple W Full Motion Chest: Symmetric LUNGS: Clear to Auscultation Heart: S1S2, RRR (SR) Abdomen: Soft N/T Extremities: No Calf Tenderness Neurology: alert, oriented, follow commands Assessment Assessment 1. Mechanical traumatic fall: S/P L hip hemiarthroplasty. Tolerated procedure well. 2. Arrhythmia: brief episodes of PSVT. EF 55-60% with good wall motion with PAP 47 mmHg 3. Mild valvular insufficiency 4. AECOPD with tobaccoism: pulmonary following 5. Elevated troponin: peaked at 0.099, due to fall and hypoxic episode. CP free. 6. Anorexia Recommendations 1. Would recommend event monitor but likely pt would not comply 2. Start on low dose toprol to attenuate SVT episodes. 3. Follow pulmonary recommendations. 4. Follow up in 4 weeks. NEIL GARNER APRN Oct 02, 2017 14:33
[2017-10-02] MEDS: BENZONATATE 100 MG CAPSULE. PO SCH ×2 (14:34→21:47)
[2017-10-02] MEDS: guaiFENesin DM 200MG/20MG 10 ML SYRUP PO SCH ×3 (14:34→21:47)
[2017-10-02] MEDS: AMINO AC 3%/ELECTROLYTE/GLYCER 1,000 ML IV SCH (14:35)
[2017-10-02 15:48] VITALS: BP 127/81
[2017-10-02] MEDS ORDERED: ENOXAPARIN 40 MG/0.4 ML SYRINGE. SQ SCH (16:00)
[2017-10-02] MEDS: cefTRIAXone IV Push 1 GM VIAL. IVP SCH (16:26)
[2017-10-02] MEDS: DRONABINOL 2.5 MG CAPSULE. PO SCH (16:26)
[2017-10-02] MEDS: METOPROLOL SUCC 24HR ER 25 MG TAB.ER.24H. PO SCH (16:27)
[2017-10-02 19:00] VITALS: BP 127/77
[2017-10-02] MEDS: LATANOPROST 0.005% OPHTH SOLUTION 2.5ML BOTTLE. OU SCH (21:00)
--- NOTE | 2017-10-02 21:02 | PDOC ---
PROGRESS NOTES Subjective Subjective Problems overnight: No acute events. The patient is sitting up eating dinner at the time of the interview. Still has his thomas in place. Objective Vital Signs Vital Signs Date Time Temp Pulse Resp B/P (MAP) Pulse Ox O2 Delivery O2 Flow Rate FiO2 10/02/17 20:00 Nasal Cannula 4.0 10/02/17 19:14 95 10/02/17 19:00 97.1 82 18 127/77 (94) 97.1 Physical Exam Gen: sitting up in bed eating dinner, awake, alert, oriented. Left hip: dressing removed . Jose intact. neurovascularly intact distally Labs Laboratory Tests Test 10/01/17 04:10 10/01/17 04:11 10/02/17 04:05 White Blood Count 9.0 x10^3/uL (4.0-11.0) 7.7 x10^3/uL (4.0-11.0) Red Blood Count 3.50 x10^6/uL (4.30-5.70) 3.56 x10^6/uL (4.30-5.70) Hemoglobin 11.1 g/dL (13.0-17.5) 11.0 g/dL (13.0-17.5) Hematocrit 32.1 % (39.0-53.0) 32.5 % (39.0-53.0) Mean Corpuscular Volume 92 fL (79-100) 91 fL (79-100) Mean Corpuscular Hemoglobin 32 pg (25-35) 31 pg (25-35) Mean Corpuscular Hemoglobin Concent 34 g/dL (31-37) 34 g/dL (31-37) Red Cell Distribution Width 14.3 % (11.5-14.5) 13.8 % (11.5-14.5) Platelet Count 115 x10^3/uL (140-400) 145 x10^3/uL (140-400) Neutrophils (%) (Auto) 76 % (31-73) 74 % (31-73) Lymphocytes (%) (Auto) 7 % (24-48) 8 % (24-48) Monocytes (%) (Auto) 16 % (0-9) 17 % (0-9) Eosinophils (%) (Auto) 0 % (0-3) 0 % (0-3) Basophils (%) (Auto) 0 % (0-3) 0 % (0-3) Neutrophils # (Auto) 6.9 x10^3uL (1.8-7.7) 5.7 x10^3uL (1.8-7.7) Lymphocytes # (Auto) 0.6 x10^3/uL (1.0-4.8) 0.6 x10^3/uL (1.0-4.8) Monocytes # (Auto) 1.5 x10^3/uL (0.0-1.1) 1.3 x10^3/uL (0.0-1.1) Eosinophils # (Auto) 0.0 x10^3/uL (0.0-0.7) 0.0 x10^3/uL (0.0-0.7) Basophils # (Auto) 0.0 x10^3/uL (0.0-0.2) 0.0 x10^3/uL (0.0-0.2) Sodium Level 136 mmol/L (136-145) 137 mmol/L (136-145) Potassium Level 4.0 mmol/L (3.5-5.1) 3.6 mmol/L (3.5-5.1) Chloride Level 104 mmol/L (98-107) 104 mmol/L (98-107) Carbon Dioxide Level 24 mmol/L (21-32) 26 mmol/L (21-32) Anion Gap 8 (6-14) 7 (6-14) Blood Urea Nitrogen 17 mg/dL (8-26) 15 mg/dL (8-26) Creatinine 1.0 mg/dL (0.7-1.3) 0.9 mg/dL (0.7-1.3) Estimated GFR (Cockcroft-Gault) 75.0 84.7 Glucose Level 112 mg/dL (70-99) 109 mg/dL (70-99) Calcium Level 7.4 mg/dL (8.5-10.1) 7.7 mg/dL (8.5-10.1) Magnesium Level 2.2 mg/dL (1.8-2.4) Laboratory Tests Test 10/02/17 04:05 White Blood Count 7.7 x10^3/uL (4.0-11.0) Red Blood Count 3.56 x10^6/uL (4.30-5.70) Hemoglobin 11.0 g/dL (13.0-17.5) Hematocrit 32.5 % (39.0-53.0) Mean Corpuscular Volume 91 fL (79-100) Mean Corpuscular Hemoglobin 31 pg (25-35) Mean Corpuscular Hemoglobin Concent 34 g/dL (31-37) Red Cell Distribution Width 13.8 % (11.5-14.5) Platelet Count 145 x10^3/uL (140-400) Neutrophils (%) (Auto) 74 % (31-73) Lymphocytes (%) (Auto) 8 % (24-48) Monocytes (%) (Auto) 17 % (0-9) Eosinophils (%) (Auto) 0 % (0-3) Basophils (%) (Auto) 0 % (0-3) Neutrophils # (Auto) 5.7 x10^3uL (1.8-7.7) Lymphocytes # (Auto) 0.6 x10^3/uL (1.0-4.8) Monocytes # (Auto) 1.3 x10^3/uL (0.0-1.1) Eosinophils # (Auto) 0.0 x10^3/uL (0.0-0.7) Basophils # (Auto) 0.0 x10^3/uL (0.0-0.2) Sodium Level 137 mmol/L (136-145) Potassium Level 3.6 mmol/L (3.5-5.1) Chloride Level 104 mmol/L (98-107) Carbon Dioxide Level 26 mmol/L (21-32) Anion Gap 7 (6-14) Blood Urea Nitrogen 15 mg/dL (8-26) Creatinine 0.9 mg/dL (0.7-1.3) Estimated GFR (Cockcroft-Gault) 84.7 Glucose Level 109 mg/dL (70-99) Calcium Level 7.7 mg/dL (8.5-10.1) Magnesium Level 2.2 mg/dL (1.8-2.4) Imaging xrays of the left hip postop reveal well placed misha arthroplasty Assessment Assessment POD# [2 S/P left hip hemiarthroplasty Problems: Plan Plan of Care weight-bearing as tolerated with hip precautions pain control physical therapy/ot ok for dc from an orthopaedic standpoint when ready. DEVIN CHONG MD Oct 02, 2017 21:02
[2017-10-02 23:00] VITALS: BP 136/85
[2017-10-03] MEDS: ALBUTEROL SULFATE 2.5 MG/3 ML NEBU. NEB PRN (00:23)
[2017-10-03 03:00] VITALS: BP 156/98
[2017-10-03] MEDS: AMINO AC 3%/ELECTROLYTE/GLYCER 1,000 ML IV SCH (03:21)
[2017-10-03 06:42] LABS: BASO % 0 % (0-3); EOS % 1 % (0-3); HEMATOCRIT 35.2 % (39.0-53.0); HEMOGLOBIN 11.7 g/dL (13.0-17.5); LYMPH # 0.6 x10^3/uL (1.0-4.8); LYMPH % 6 % (24-48); MEAN CORPUSCULAR HEMOGLOBIN 31 pg (25-35); MEAN CORPUSCULAR HGB CONC 33 g/dL (31-37); MEAN CORPUSCULAR VOLUME 92 fL (79-100); MONO % 13 % (0-9); NEUT % 79 % (31-73); PLATELET COUNT 187 x10^3/uL (140-400); RED BLOOD COUNT 3.85 x10^6/uL (4.30-5.70); RED CELL DISTRIBUTION WIDTH 14.2 % (11.5-14.5); WHITE BLOOD COUNT 9.3 x10^3/uL (4.0-11.0)
[2017-10-03 07:00] VITALS: BP 143/94
[2017-10-03 07:09] LABS: CALCIUM 7.7 mg/dL (8.5-10.1); CREATININE 0.7 mg/dL (0.7-1.3); GFR 113.2; POTASSIUM 3.7 mmol/L (3.5-5.1)
[2017-10-03] MEDS: IPRATRPIUM/ALBUTEROL 0.5/2.5MG 3 ML NEBU. NEB SCH ×2 (07:16→10:53)
[2017-10-03] MEDS: BENZONATATE 100 MG CAPSULE. PO SCH (09:01)
[2017-10-03] MEDS: HYDROcodone/APAP 5/325MG 1 TAB TABLET PO PRN (09:01)
[2017-10-03] MEDS: DORZOLAMIDE/TIMOLOL 2%/0.5% OPHTH SOLUTION 10ML BOTTLE. OU SCH (09:02)
[2017-10-03] MEDS: DRONABINOL 2.5 MG CAPSULE. PO SCH ×2 (09:02→11:57)
[2017-10-03] MEDS: guaiFENesin DM 200MG/20MG 10 ML SYRUP PO SCH ×2 (09:02→11:57)
[2017-10-03] MEDS: METOPROLOL SUCC 24HR ER 25 MG TAB.ER.24H. PO SCH (09:13)
[2017-10-03] MEDS ORDERED: DRON2.5C PO (10:46)
--- NOTE | 2017-10-03 10:48 | PDOC3 ---
Discharge Summary Visit Information Date of Admission: Sep 30, 2017 Date of Discharge: Oct 03, 2017 Admitting Diagnosis Comment: Femur Fx, Fall Risk Dec PO Mod to severe PCM Vit D def Emphysema CUrent smoker Acute bronchitis Final Diagnosis Problems Medical Problems: (1) Fracture of femoral neck, left Status: Acute (2) Hypoxia Status: Acute Brief Hospital Course Allergies Allergies Coded Allergies Type Severity Reaction Last Updated Verified No Known Drug Allergies 09/20/15 No Vital Signs Vital Signs Date Time Temp Pulse Resp B/P (MAP) Pulse Ox O2 Delivery O2 Flow Rate FiO2 10/03/17 09:13 81 143/94 10/03/17 07:12 91 Nasal Cannula 4.0 10/03/17 07:00 97.9 20 97.9 Lab Results Laboratory Tests Test 10/02/17 04:05 10/03/17 05:50 White Blood Count 7.7 x10^3/uL (4.0-11.0) 9.3 x10^3/uL (4.0-11.0) Red Blood Count 3.56 x10^6/uL (4.30-5.70) 3.85 x10^6/uL (4.30-5.70) Hemoglobin 11.0 g/dL (13.0-17.5) 11.7 g/dL (13.0-17.5) Hematocrit 32.5 % (39.0-53.0) 35.2 % (39.0-53.0) Mean Corpuscular Volume 91 fL (79-100) 92 fL (79-100) Mean Corpuscular Hemoglobin 31 pg (25-35) 31 pg (25-35) Mean Corpuscular Hemoglobin Concent 34 g/dL (31-37) 33 g/dL (31-37) Red Cell Distribution Width 13.8 % (11.5-14.5) 14.2 % (11.5-14.5) Platelet Count 145 x10^3/uL (140-400) 187 x10^3/uL (140-400) Neutrophils (%) (Auto) 74 % (31-73) 79 % (31-73) Lymphocytes (%) (Auto) 8 % (24-48) 6 % (24-48) Monocytes (%) (Auto) 17 % (0-9) 13 % (0-9) Eosinophils (%) (Auto) 0 % (0-3) 1 % (0-3) Basophils (%) (Auto) 0 % (0-3) 0 % (0-3) Neutrophils # (Auto) 5.7 x10^3uL (1.8-7.7) 7.4 x10^3uL (1.8-7.7) Lymphocytes # (Auto) 0.6 x10^3/uL (1.0-4.8) 0.6 x10^3/uL (1.0-4.8) Monocytes # (Auto) 1.3 x10^3/uL (0.0-1.1) 1.2 x10^3/uL (0.0-1.1) Eosinophils # (Auto) 0.0 x10^3/uL (0.0-0.7) 0.1 x10^3/uL (0.0-0.7) Basophils # (Auto) 0.0 x10^3/uL (0.0-0.2) 0.0 x10^3/uL (0.0-0.2) Sodium Level 137 mmol/L (136-145) 132 mmol/L (136-145) Potassium Level 3.6 mmol/L (3.5-5.1) 3.7 mmol/L (3.5-5.1) Chloride Level 104 mmol/L (98-107) 100 mmol/L (98-107) Carbon Dioxide Level 26 mmol/L (21-32) 27 mmol/L (21-32) Anion Gap 7 (6-14) 5 (6-14) Blood Urea Nitrogen 15 mg/dL (8-26) 14 mg/dL (8-26) Creatinine 0.9 mg/dL (0.7-1.3) 0.7 mg/dL (0.7-1.3) Estimated GFR (Cockcroft-Gault) 84.7 113.2 Glucose Level 109 mg/dL (70-99) 126 mg/dL (70-99) Calcium Level 7.7 mg/dL (8.5-10.1) 7.7 mg/dL (8.5-10.1) Magnesium Level 2.2 mg/dL (1.8-2.4) Laboratory Tests Test 10/03/17 05:50 White Blood Count 9.3 x10^3/uL (4.0-11.0) Red Blood Count 3.85 x10^6/uL (4.30-5.70) Hemoglobin 11.7 g/dL (13.0-17.5) Hematocrit 35.2 % (39.0-53.0) Mean Corpuscular Volume 92 fL (79-100) Mean Corpuscular Hemoglobin 31 pg (25-35) Mean Corpuscular Hemoglobin Concent 33 g/dL (31-37) Red Cell Distribution Width 14.2 % (11.5-14.5) Platelet Count 187 x10^3/uL (140-400) Neutrophils (%) (Auto) 79 % (31-73) Lymphocytes (%) (Auto) 6 % (24-48) Monocytes (%) (Auto) 13 % (0-9) Eosinophils (%) (Auto) 1 % (0-3) Basophils (%) (Auto) 0 % (0-3) Neutrophils # (Auto) 7.4 x10^3uL (1.8-7.7) Lymphocytes # (Auto) 0.6 x10^3/uL (1.0-4.8) Monocytes # (Auto) 1.2 x10^3/uL (0.0-1.1) Eosinophils # (Auto) 0.1 x10^3/uL (0.0-0.7) Basophils # (Auto) 0.0 x10^3/uL (0.0-0.2) Sodium Level 132 mmol/L (136-145) Potassium Level 3.7 mmol/L (3.5-5.1) Chloride Level 100 mmol/L (98-107) Carbon Dioxide Level 27 mmol/L (21-32) Anion Gap 5 (6-14) Blood Urea Nitrogen 14 mg/dL (8-26) Creatinine 0.7 mg/dL (0.7-1.3) Estimated GFR (Cockcroft-Gault) 113.2 Glucose Level 126 mg/dL (70-99) Calcium Level 7.7 mg/dL (8.5-10.1) Brief Hospital Course Mr. De La Rosa is a 66 old male who had a mechanical fall and fractured his hip, Underwent sx. Sister concerned about poor PO and acting depressed, Drank only 1 boost. Pt denies being depressed but agreed to take the marinol, CLeared from ortho DR. Mejia., ff up 2 weeks with her Seen and examined MAR done Dc 31 mins Discharge Information Condition at Discharge: Improved, Stable Disposition/Orders: Other (snf) Scheduled Aspirin (Aspirin), 81 MG PO 1X, (Reported) Bimatoprost (Lumigan), 1 DROP EACHEYE QHS, (Reported) Dorzolamide Hcl/Timolol Maleat (Dorzolamide-Timolol Eye Drops), 1 DROP EACHEYE BID, (Reported) Miscellaneous Medications Celecoxib (Celebrex), 200 MG PO, (Reported) [Cancer Med Daily], (Reported) [Eyedrops], (Reported) LESLY REILLY MD Oct 03, 2017 10:48
[2017-10-03 11:00] VITALS: BP 153/90
--- NOTE | 2017-10-03 12:33 | PDOC ---
PULMONARY PROGRESS NOTES Subjective PT WITH NO INCREASE SOA CONFUSION IMPROVED Vitals Vital Signs Date Time Temp Pulse Resp B/P (MAP) Pulse Ox O2 Delivery O2 Flow Rate FiO2 10/03/17 10:54 Nasal Cannula 4.0 10/03/17 09:13 81 143/94 10/03/17 07:12 91 10/03/17 07:00 97.9 20 97.9 ROS: No Nausea, No Chest Pain, No Abdominal Pain, No Increase Cough General: Alert, No acute distress Lungs: Clear Cardiovascular: S1, S2 Abdomen: Soft Neuro Exam: Alert Extremities: No Edema Skin: Warm Labs Laboratory Tests Test 10/02/17 04:05 10/03/17 05:50 White Blood Count 7.7 x10^3/uL (4.0-11.0) 9.3 x10^3/uL (4.0-11.0) Red Blood Count 3.56 x10^6/uL (4.30-5.70) 3.85 x10^6/uL (4.30-5.70) Hemoglobin 11.0 g/dL (13.0-17.5) 11.7 g/dL (13.0-17.5) Hematocrit 32.5 % (39.0-53.0) 35.2 % (39.0-53.0) Mean Corpuscular Volume 91 fL (79-100) 92 fL (79-100) Mean Corpuscular Hemoglobin 31 pg (25-35) 31 pg (25-35) Mean Corpuscular Hemoglobin Concent 34 g/dL (31-37) 33 g/dL (31-37) Red Cell Distribution Width 13.8 % (11.5-14.5) 14.2 % (11.5-14.5) Platelet Count 145 x10^3/uL (140-400) 187 x10^3/uL (140-400) Neutrophils (%) (Auto) 74 % (31-73) 79 % (31-73) Lymphocytes (%) (Auto) 8 % (24-48) 6 % (24-48) Monocytes (%) (Auto) 17 % (0-9) 13 % (0-9) Eosinophils (%) (Auto) 0 % (0-3) 1 % (0-3) Basophils (%) (Auto) 0 % (0-3) 0 % (0-3) Neutrophils # (Auto) 5.7 x10^3uL (1.8-7.7) 7.4 x10^3uL (1.8-7.7) Lymphocytes # (Auto) 0.6 x10^3/uL (1.0-4.8) 0.6 x10^3/uL (1.0-4.8) Monocytes # (Auto) 1.3 x10^3/uL (0.0-1.1) 1.2 x10^3/uL (0.0-1.1) Eosinophils # (Auto) 0.0 x10^3/uL (0.0-0.7) 0.1 x10^3/uL (0.0-0.7) Basophils # (Auto) 0.0 x10^3/uL (0.0-0.2) 0.0 x10^3/uL (0.0-0.2) Sodium Level 137 mmol/L (136-145) 132 mmol/L (136-145) Potassium Level 3.6 mmol/L (3.5-5.1) 3.7 mmol/L (3.5-5.1) Chloride Level 104 mmol/L (98-107) 100 mmol/L (98-107) Carbon Dioxide Level 26 mmol/L (21-32) 27 mmol/L (21-32) Anion Gap 7 (6-14) 5 (6-14) Blood Urea Nitrogen 15 mg/dL (8-26) 14 mg/dL (8-26) Creatinine 0.9 mg/dL (0.7-1.3) 0.7 mg/dL (0.7-1.3) Estimated GFR (Cockcroft-Gault) 84.7 113.2 Glucose Level 109 mg/dL (70-99) 126 mg/dL (70-99) Calcium Level 7.7 mg/dL (8.5-10.1) 7.7 mg/dL (8.5-10.1) Magnesium Level 2.2 mg/dL (1.8-2.4) Laboratory Tests Test 10/03/17 05:50 White Blood Count 9.3 x10^3/uL (4.0-11.0) Red Blood Count 3.85 x10^6/uL (4.30-5.70) Hemoglobin 11.7 g/dL (13.0-17.5) Hematocrit 35.2 % (39.0-53.0) Mean Corpuscular Volume 92 fL (79-100) Mean Corpuscular Hemoglobin 31 pg (25-35) Mean Corpuscular Hemoglobin Concent 33 g/dL (31-37) Red Cell Distribution Width 14.2 % (11.5-14.5) Platelet Count 187 x10^3/uL (140-400) Neutrophils (%) (Auto) 79 % (31-73) Lymphocytes (%) (Auto) 6 % (24-48) Monocytes (%) (Auto) 13 % (0-9) Eosinophils (%) (Auto) 1 % (0-3) Basophils (%) (Auto) 0 % (0-3) Neutrophils # (Auto) 7.4 x10^3uL (1.8-7.7) Lymphocytes # (Auto) 0.6 x10^3/uL (1.0-4.8) Monocytes # (Auto) 1.2 x10^3/uL (0.0-1.1) Eosinophils # (Auto) 0.1 x10^3/uL (0.0-0.7) Basophils # (Auto) 0.0 x10^3/uL (0.0-0.2) Sodium Level 132 mmol/L (136-145) Potassium Level 3.7 mmol/L (3.5-5.1) Chloride Level 100 mmol/L (98-107) Carbon Dioxide Level 27 mmol/L (21-32) Anion Gap 5 (6-14) Blood Urea Nitrogen 14 mg/dL (8-26) Creatinine 0.7 mg/dL (0.7-1.3) Estimated GFR (Cockcroft-Gault) 113.2 Glucose Level 126 mg/dL (70-99) Calcium Level 7.7 mg/dL (8.5-10.1) Medications Active Scripts Medications Dose Route/Sig Max Daily Dose Days Date Category Lumigan (Bimatoprost) 2.5 Ml Drops 1 Drop EACHEYE QHS 09/29/17 Reported Dorzolamide-Timolol Eye Drops (Dorzolamide Hcl/Timolol Maleat) 10 Ml Drops 1 Drop EACHEYE BID 09/29/17 Reported [Eyedrops] 09/20/15 Reported Celebrex (Celecoxib) 200 Mg Capsule 200 Mg PO 30 09/20/15 Reported [Cancer Med Daily] 05/14/14 Reported Aspirin 81 Mg Tab.chew 81 Mg PO 1X 10/10/13 Reported Impression . 1. Acute respiratory failure secondary to severe COPD of the emphysematous type. 2. Recent fall suffering a fracture of the left femoral neck. 3. Elevated troponin. 4. Tobacco dependence. 5. Alcohol abuse. 6. Abnormal ct chest with basal pneumonia and multiple lung nodules/ Multiple lung nodules follows: -Stable 6 mm nodule in the right major fissure (series 2 image 49) -Interval increase in the size of another right major fissure nodule measuring - 7 mm (series 2 image 51), previously 5 mm. -Stable 5 mm spiculated opacity in the right lung apex (series 2 image 14) . -Stable 7 mm pulmonary nodule in the left major fissure (series 2 image 48) . -Stable 7 mm pleural-based nodule in the left lower lobe (series 2 image 45) ). Plan . RESP STATUS IS COMPENSATED S/P LEFT HIP SURGERY 1. Continue oxygen supplementation. 2. Nebulized treatments. 3. Repeat ct chest in 3 months regarding lung nodules. spoke with sister . she will make appointment in our office in 2 months 5. Postop aggressive pulmonary hygiene. 6. Antibiotics ROCEPHIN/ can change to PO in 24 hr VENUS BRUNO MD Oct 03, 2017 12:33
--- NOTE | 2017-10-03 15:46 | PATHOLOGY ---
PATHOLOGY REPORT * * * * * * * * FINAL DIAGNOSIS: Femoral head, left bipolar hemiarthroplasty: - Focal fragmentation of bony trabeculae and recent intertrabecular hemorrhage consistent with fracture. - Degenerative arthritis. (JPM:elle; 10/03/2017) COMMENT: There is no evidence of malignancy. REPORT ELECTRONICALLY SIGNED BY: Mukund Lynne M.D. DATE/TIME: 10/03/2017 13:04 * * * * * * * * GROSS PATHOLOGY: Received in formalin labeled "Antonia Chavez, left femoral head and tissues," is a femoral head measuring 5.0 x 5.0 x 4.8 cm in greatest dimensions. The articular surface is a smooth to granular and pale [place] to dark brown in appearance. Sectioning reveals a pale yellow to hemorrhagic marrow space, with the distal most aspect hemorrhagic in appearance, consistent with a fracture site. Health Care Liaison tissue from the fracture site is submitted in cassettes A1 and A2, following decalcification. (DAC; 10/02/2017) INITIAL CPT CODE(S): A; 15812, 61197 Professional services performed [place] [facility] [address] Technical services performed by [facility] at [address] [place] [address]. SPECIMEN(S) RECEIVED: A.Left femoral head and tissues CLINICAL HISTORY: Femur fracture PATIENT: ANTONIA CHAVEZ /AGE: 2 1950 (Age: 66) PATIENT #: [id number] ALT CASE #: SPECIMEN COLLECTION DATE: 09/30/2017 SPECIMEN RECEIVED DATE: 10/01/2017 [facility] - [address] [place] [address] - PHONE: [phone] * * * END OF REPORT * * *
== END 2017-10-03 13:41 | DRG 469 ==
LOC: ER 16:38 → 4 NORTH 19:54
PROVIDERS: ADMIT Internal Medicine; ATTEND Internal Medicine
PROC: 0SRS01Z Replacement of Left Hip Joint, Femoral Surface with Metal Synthetic Substitute, Open Approach (ICD-10-PCS; principal; 2017-09-30 10:00)
DX: S72.002A Fracture of unspecified part of neck of left femur, initial encounter for closed fracture (principal); J96.01 Acute respiratory failure with hypoxia; E43 Unspecified severe protein-calorie malnutrition; J18.9 Pneumonia, unspecified organism; J44.0 Chronic obstructive pulmonary disease with (acute) lower respiratory infection; J44.1 Chronic obstructive pulmonary disease with (acute) exacerbation; Z68.1 Body mass index [BMI] 19.9 or less, adult; E55.9 Vitamin D deficiency, unspecified; F10.20 Alcohol dependence, uncomplicated; F17.210 Nicotine dependence, cigarettes, uncomplicated; Z96.642 Presence of left artificial hip joint; I10 Essential (primary) hypertension; J20.9 Acute bronchitis, unspecified; W01.0XXA Fall on same level from slipping, tripping and stumbling without subsequent striking against object, initial encounter; Z81.8 Family history of other mental and behavioral disorders; Z82.49 Family history of ischemic heart disease and other diseases of the circulatory system; Z85.038 Personal history of other malignant neoplasm of large intestine; Z90.49 Acquired absence of other specified parts of digestive tract; Z91.81 History of falling; Y93.89 Activity, other specified; Y92.092 Bedroom in other non-institutional residence as the place of occurrence of the external cause; Y99.8 Other external cause status
CPT/HCPCS: 36415; 36600; 51702; 70450; 71010; 71250; 72125; 72170; 73501; 73502; 73552; 73560; 80048; 80053; 81001; 82306; 82805; 83735; 83874; 84484; 85007; 85025; 85610; 85730; 86850; 86900; 86901; 87641; 88305; 88311; 93005; 93306; 94640; 94760; J0171; J0330; J0610; J0690; J0696; J1100; J1650; J1885; J2270; J2370; J2405; J2704; J2795; J3010; J7030; J7613; J7620; Q0167; 97110; 97116; 97530; 97535; 99285-25; J2001

== ENCOUNTER → 2018-06-21 | Outpatient (CLI) | payer MEDICARE ==
[2018-04-04 15:00] VITALS: BP 102/58
[~2018-06-21] MED LIST changes: +ACET325T9 PO; +BIMA2.5D EACHEYE; +BIMA2.5D LEFTEYE; +CONTRAST GIVEN. MC PRN; +DORZ10DR7 EACHEYE; +DRON2.5C PO; +IOHEXOL 240 MG/ML 50ML VIAL. PO ONE; +IOHEXOL 300 MG/ML 100ML VIAL. IV ONE
[2018-06-21 08:45] LABS: ALBUMIN 3.7 g/dL (3.4-5.0); CALCIUM 8.7 mg/dL (8.5-10.1); CREATININE 1.1 mg/dL (0.7-1.3); POTASSIUM 3.7 mmol/L (3.5-5.1); TOTAL BILIRUBIN 0.6 mg/dL (0.2-1.0); TOTAL PROTEIN 7.5 g/dL (6.4-8.2)
--- NOTE | 2018-06-21 13:40 | RAD ---
CLINICAL HISTORY: COLON CA, PRIOR SENT. COMPARISON: 09/29/2017, 06/21/2017 TECHNIQUE: CT of the chest, abdomen and pelvis following the administration of 75 mL Omnipaque 300 intravenous contrast. Oral contrast was administered. Coronal and sagittal reformatted images were generated. PQRS compliance statement - One or more of the following individualized dose reduction techniques were utilized for this study: 1. Automated exposure control 2. Adjustment of the mA and/or kV according to patient size 3. Use of iterative reconstruction technique FINDINGS: CHEST: The heart is not enlarged. Coronary artery calcifications are seen. No pericardial effusion. Ascending aorta measures 3.6 cm, stable. No mediastinal or hilar lymphadenopathy by size criteria. No pleural effusion or pneumothorax. Bilateral emphysematous changes are seen. Central airways are grossly clear. Numerous pleural and fissural based lung nodules are grossly stable. Burn Out Scarfing Operator fissural nodule along the right major fissure measures 6 mm, stable (image 46). Right lower lobe lung nodule abutting the pleura (image 48) is stable measuring 6 mm. Left pleural-based lung nodule measures 5 cm, stable (image 42). Biapical pleural/parenchymal scarring/thickening. Left upper lobe calcified granuloma is again seen. ABDOMEN AND PELVIS: No focal liver lesion. Gallbladder is unremarkable. No intra or extrahepatic biliary ductal dilatation is seen. Spleen is normal. Right adrenal gland is normal. Left adrenal nodule versus thickening is stable. Symmetric nephrograms. No focal renal lesion. No hydronephrosis. 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 No abdominal or pelvic lymphadenopathy. No small or large bowel dilatation. Oral contrast material makes it to the colon. Moderate colonic stool content. No abdominal or pelvic ascites. No definite pelvic mass is identified. The prostate is enlarged measuring 5.9 cm in transverse dimension. Streak artifact from the left hip arthroplasty limits evaluation. Bones: Multilevel degenerative changes of the spine are seen. Diffusely decreased bone mineral density. Cardiac height loss at T4 seen. There is an acute-appearing subacute appearing fracture of the T5 vertebral body with mild retropulsion of the posterior wall. IMPRESSION: 1. There is an acute early subacute compression fracture of the T5 vertebral body with approximately 40 percent height loss. T4 compression fracture is stable. Diffusely decreased bone mineral density. 2. No thoracic, abdominal or pelvic lymphadenopathy 3. The fissural and pleural-based lung nodules are essentially stable. Electronically signed by: Lacho Ball MD (06/21/2018 1:36 PM) [facility]
== END | disposition home or self-care (01) ==
LOC: CT 10:23
PROVIDERS: ATTEND Internal Medicine Hematology & Oncology
DX: S22.048A Other fracture of fourth thoracic vertebra, initial encounter for closed fracture (principal); S22.058A Other fracture of T5-T6 vertebra, initial encounter for closed fracture; C18.2 Malignant neoplasm of ascending colon; J43.8 Other emphysema; R91.8 Other nonspecific abnormal finding of lung field; J84.10 Pulmonary fibrosis, unspecified; N40.0 Benign prostatic hyperplasia without lower urinary tract symptoms; I25.10 Atherosclerotic heart disease of native coronary artery without angina pectoris; I10 Essential (primary) hypertension; Z90.49 Acquired absence of other specified parts of digestive tract; Z87.891 Personal history of nicotine dependence; X58.XXXA Exposure to other specified factors, initial encounter; Y93.89 Activity, other specified; Y92.89 Other specified places as the place of occurrence of the external cause; Y99.8 Other external cause status
CPT/HCPCS: 36415; 71260; 74177; 80053; Q9966; Q9967

== ENCOUNTER 2018-07-05 17:19 | Emergency (ER) | payer MEDICARE ==
[~2018-07-05] VITALS: Ht 175.3 cm; Wt 52.2 kg
[~2018-07-05 17:19] MED LIST changes: -CONTRAST GIVEN. MC PRN; -IOHEXOL 240 MG/ML 50ML VIAL. PO ONE; -IOHEXOL 300 MG/ML 100ML VIAL. IV ONE
[2018-07-05 17:35] VITALS: BP 126/78
[2018-07-05] MEDS ORDERED: TETRACAINE 0.5% OPHTH SOLUTION 4ML BOTTLE. OU ONE (18:30)
[2018-07-05] MEDS ORDERED: FLUORESCEIN OPHTH TEST STRIP. OU ONE (18:30)
[2018-07-05] MEDS ORDERED: ERYT1OIN6 OP (19:39)
--- NOTE | 2018-07-05 19:40 | PHYS DOC ---
Past Medical History Past Medical History: Cancer, Glaucoma, Other Additional Past Medical Histor: Colon cancer with chemo, EMPHYSEMA, HYPOTENSION ,"LOW IQ" Past Surgical History: Appendectomy, Other Additional Past Surgical Histo: Colon resec.,Hernia repair,R)arm FX/repair,L) hip fx/repair,HEMORRHOIDECTOMY Alcohol Use: Occasionally Drug Use: None Adult General Chief Complaint Chief Complaint: EYE PROBLEMS HPI HPI Patient is a 67 year old [f__sex] who presents with [] Review of Systems Review of Systems Constitutional: Denies fever or chills [] Eyes: Denies change in visual acuity, redness, or eye pain [] HENT: Denies nasal congestion or sore throat [] Respiratory: Denies cough or shortness of breath [] Cardiovascular: No additional information not addressed in HPI [] GI: Denies abdominal pain, nausea, vomiting, bloody stools or diarrhea [] : Denies dysuria or hematuria [] Musculoskeletal: Denies back pain or joint pain [] Integument: Denies rash or skin lesions [] Neurologic: Denies headache, focal weakness or sensory changes [] Endocrine: Denies polyuria or polydipsia [] All other systems were reviewed and found to be within normal limits, except as documented in this note. Current Medications Current Medications Current Medications Medications (Trade) Dose Ordered Sig/El Start Time Stop Time Status Last Admin Dose Admin Fluorescein Sodium (Ful-Tracy) 2 strip 1X ONCE 07/05/18 18:30 07/05/18 18:31 DC 07/05/18 18:24 2 STRIP Tetracaine HCl (Tetracaine) 1 drop 1X ONCE 07/05/18 18:30 07/05/18 18:31 DC 07/05/18 18:24 1 DROP Allergies Allergies Allergies Coded Allergies Type Severity Reaction Last Updated Verified No Known Drug Allergies 09/20/15 No Physical Exam Physical Exam Constitutional: Well developed, well nourished, no acute distress, non-toxic appearance. [] HENT: Normocephalic, atraumatic, bilateral external ears normal, oropharynx moist, no oral exudates, nose normal. [] Eyes: PERRLA, EOMI, conjunctiva normal, no discharge. [] Neck: Normal range of motion, no tenderness, supple, no stridor. [] Cardiovascular:Heart rate regular rhythm, no murmur [] Lungs & Thorax: Bilateral breath sounds clear to auscultation [] Abdomen: Bowel sounds normal, soft, no tenderness, no masses, no pulsatile masses. [] Skin: Warm, dry, no erythema, no rash. [] Back: No tenderness, no CVA tenderness. [] Extremities: No tenderness, no cyanosis, no clubbing, ROM intact, no edema. [] Neurologic: Alert and oriented X 3, normal motor function, normal sensory function, no focal deficits noted. [] Psychologic: Affect normal, judgement normal, mood normal. [] Current Patient Data Vital Signs Vital Signs Date Time Temp Pulse Resp B/P (MAP) Pulse Ox O2 Delivery O2 Flow Rate FiO2 07/05/18 17:35 98.4 73 18 126/78 (94) 97 Room Air 98.4 EKG EKG [] Radiology/Procedures Radiology/Procedures [] Course & Med Decision Making Course & Med Decision Making Pertinent Labs and Imaging studies reviewed. (See chart for details) [] Dragon Disclaimer Dragon Disclaimer This electronic medical record was generated, in whole or in part, using a voice recognition dictation system. Departure Departure Impression: Primary Impression: Irritation of both eyes Disposition: HOME, SELF-CARE Condition: LEFT WITHOUT BEING SEEN Referrals: SYLVIA BLANCO MD (PCP) Patient Instructions: Bacterial Conjunctivitis, [id number] Additional Instructions: Avoid itching your eyes. You need to follow-up with your continuous improvement director next week for re-evaluation if symptoms worsen over the weekend return to the Emergency Department. Scripts Erythromycin Base (Erythromycin) 1 Gm Oint...g. 1 GM OP QID for 5 Days, MISC Apply ointment to boath lower inner eyelid-avoid touching eye with container. Prov: MAGALY MORIN APRN 07/05/18 MAGALY MORIN APRN Jul 05, 2018 19:40
== END 2018-07-05 19:51 | disposition home or self-care (01) ==
LOC: ER 17:19
DX: H57.8 Other specified disorders of eye and adnexa (principal)
CPT/HCPCS: 99283

== ENCOUNTER 2019-05-25 11:31 | Emergency (ER) | payer MEDICARE ==
[~2019-05-25] VITALS: Ht 175.3 cm; Wt 49.9 kg
[~2019-05-25 11:31] MED LIST changes: +CALC1TAB54 PO; +ERYT1OIN6 OP; +MULT1TAB90 PO
[2019-05-25 11:40] VITALS: BP 114/76
[2019-05-25] MEDS ORDERED: TETRACAINE 0.5% OPHTH SOLUTION 4ML BOTTLE. OS ONE (12:00)
[2019-05-25] MEDS ORDERED: ERYTHROMYCIN 0.5% OPHTH OINTMENT 1GM TUBE. OS ONE (12:00)
[2019-05-25] MEDS ORDERED: FLUORESCEIN OPHTH TEST STRIP. OS ONE (12:00)
--- NOTE | 2019-05-25 12:09 | PHYS DOC ---
Past Medical History Past Medical History: Cancer, COPD, Glaucoma, Other Additional Past Medical Histor: Colon cancer with chemo, EMPHYSEMA, HYPOTENSION,"LOW IQ" Past Surgical History: Appendectomy, Other Additional Past Surgical Histo: Colon resec.,Hernia repair,R)arm FX/repair,L)hi p fx/repair,HEMORRHOIDECTOMY Alcohol Use: Occasionally Drug Use: None Adult General Chief Complaint Chief Complaint: FOREIGN BODY/EYES HPI HPI 68 y/o male presents to ER for complaints of 2 week history of left eye irritation and redness. He denies any vision changes, dizziness, headache, or known injury. Pt reports the irritation has been gradually worsening denies swelling. Patient reports history of glaucoma denies contact lenses or corrective glasses. Review of Systems Review of Systems Constitutional: Denies fever or chills [] Eyes: Denies change in visual acuity. HENT: Denies nasal congestion or sore throat [] Respiratory: Denies cough or shortness of breath [] Cardiovascular: No additional information not addressed in HPI [] Musculoskeletal: Denies back/neck pain or joint pain [] Integument: Denies rash or skin lesions [] Neurologic: Denies headache, focal weakness or sensory changes. Denies dizziness Endocrine: Denies polyuria or polydipsia [] All other systems were reviewed and found to be within normal limits, except as documented in this note. Current Medications Current Medications Current Medications Medications (Trade) Dose Ordered Sig/El Start Time Stop Time Status Last Admin Dose Admin Erythromycin (Romycin) 0.25 inch 1X ONCE 05/25/19 12:00 05/25/19 12:01 DC 05/25/19 12:04 0.25 INCH Fluorescein Sodium (Ful-Tracy) 1 strip 1X ONCE 05/25/19 12:00 05/25/19 12:01 DC 05/25/19 12:04 1 STRIP Tetracaine HCl (Tetracaine) 1 drop 1X ONCE 05/25/19 12:00 05/25/19 12:01 DC 05/25/19 12:04 1 DROP Allergies Allergies Allergies Coded Allergies Type Severity Reaction Last Updated Verified No Known Drug Allergies 09/20/15 No Physical Exam Physical Exam Constitutional: Well developed, well nourished, no acute distress, non-toxic appearance. [] HENT: Normocephalic, atraumatic, bilateral external ears normal, oropharynx moist, no oral exudates, nose normal. [] Eyes: PERRLA, EOMI, conjunctiva normal, no discharge. [] Neck: Normal range of motion, no tenderness, supple, no stridor. [] Cardiovascular:Heart rate regular rhythm, no murmur [] Lungs & Thorax: Bilateral breath sounds clear to auscultation [] Abdomen: Bowel sounds normal, soft, no tenderness, no masses, no pulsatile masses. [] Skin: Warm, dry, no erythema, no rash. [] Back: No tenderness, no CVA tenderness. [] Extremities: No tenderness, no cyanosis, no clubbing, ROM intact, no edema. [] Neurologic: Alert and oriented X 3, normal motor function, normal sensory function, no focal deficits noted. [] Psychologic: Affect normal, judgement normal, mood normal. [] Current Patient Data Vital Signs Vital Signs Date Time Temp Pulse Resp B/P (MAP) Pulse Ox O2 Delivery O2 Flow Rate FiO2 05/25/19 11:40 97.9 77 14 114/76 (89) 98 Room Air 97.9 EKG EKG [] Radiology/Procedures Radiology/Procedures Eye Exam w/ Soria Lamp: Visual Acuity: Visual Guan: Intact in all four quadrants bilaterally Lac ducts/glands: No swelling Lids w/ evertion: Normal, no foreign body Conj/Cunningham: Clear, Fluorescein uptake 6 o'clock position of the cornea Course & Med Decision Making Course & Med Decision Making [] Dragon Disclaimer Dragon Disclaimer This electronic medical record was generated, in whole or in part, using a voice recognition dictation system. Departure Departure Impression: Primary Impression: Corneal abrasion Disposition: 01 HOME, SELF-CARE Condition: STABLE Referrals: SYLVIA BLANCO MD (PCP) Patient Instructions: Eye - Corneal Abrasion Additional Instructions: Avoid rubbing your eye as that will cause further irritation. Apply the erythromycin ointment 1/2" ribbon to lower left eyelid 2 times a day for 5 days. If symptoms persist or worsens follow-up with your primary care physician and/or your rubber stamp die inspector for reevaluation and further care. Warm compresses or cool compress to affected eye every 3-4 hours for 20-30 minutes at a time. Scripts Erythromycin Base (Erythromycin) 1 Gm Oint...g. 1 GM OP BID for 5 Days, #1 MISC 0 Refills 1/2-inch ribbon to left lower inner eyelid Prov: MAGALY MORIN APRN 05/25/19 MAGALY MORIN APRN May 25, 2019 12:09
[2019-05-25] MEDS ORDERED: ERYT1OIN6 OP (12:57)
== END 2019-05-25 13:04 | disposition home or self-care (01) ==
LOC: ER 11:31
DX: S05.02XA Injury of conjunctiva and corneal abrasion without foreign body, left eye, initial encounter (principal); J44.9 Chronic obstructive pulmonary disease, unspecified; X58.XXXA Exposure to other specified factors, initial encounter; Y93.89 Activity, other specified; Y92.89 Other specified places as the place of occurrence of the external cause; Y99.8 Other external cause status
CPT/HCPCS: 99283

== ENCOUNTER → 2019-06-23 | Outpatient (CLI) | payer MEDICARE ==
[2019-05-25 11:40] VITALS: BP 114/76
[~2019-06-23] MED LIST changes: +CONTRAST GIVEN. MC PRN; +IOHEXOL 240 MG/ML 50ML VIAL. PO ONE; +IOHEXOL 300 MG/ML 100ML VIAL. IV ONE
--- NOTE | 2019-06-23 10:42 | RAD ---
PQRS Compliance statement: One or more of the following individualized dose reduction techniques were utilized for this examination: 1. Automated exposure control. 2. Adjustment of the mA and/or kV according to patient size. 3. Use of iterative reconstruction technique. Indication:Colon cancer. Restaging scan. TECHNIQUE: CT chest, abdomen and pelvis with IV contrast with multiplanar reformats. COMPARISON: CT from 06/21/2018. FINDINGS: Heart is normal in size. No pericardial or pleural effusion. No enlarged axillary, mediastinal or hilar adenopathy. Mild to moderate emphysema. Biapical pleural scarring with calcified pleural plaques. Stable couple of nodules in the right major fissure measuring 5 mm. Stable pleural-based nodules, the largest in the right lower lobe measuring 5 mm. Stable couple of nodules in the left lower lobe, the largest in the left major fissure measuring 5 mm. Stable compression deformity of the T4 and T5 vertebral bodies with no retropulsion into spinal canal. No suspicious bony lesion. Liver, spleen, gallbladder, pancreas, adrenals and right kidney within normal limits. Malrotated left kidney. No enlarged retroperitoneal or pelvic adenopathy. Mild atherosclerotic plaque in the abdominal aorta and bilateral iliac arteries. No free pelvic fluid or ascites. Evaluation of left hemipelvis limited due to streak artifact from hip arthroplasty. No bowel obstruction. No apparent radiopaque stones in the urinary bladder. Prostate is mildly enlarged measuring 6.0 x 4.3 cm. No suspicious bony lesion. IMPRESSION: 1. Stable bilateral pulmonary nodules. Follow-up CT chest in 6-8 months recommended. 2. Evidence of disease in the abdomen or pelvis. Electronically signed by: Juventino Perkins DO (06/23/2019 10:39 AM) [facility]
== END | disposition home or self-care (01) ==
LOC: CT 07:58
PROVIDERS: ATTEND Internal Medicine Hematology & Oncology
DX: C18.2 Malignant neoplasm of ascending colon (principal); J43.9 Emphysema, unspecified; J92.9 Pleural plaque without asbestos; I70.0 Atherosclerosis of aorta; N40.0 Benign prostatic hyperplasia without lower urinary tract symptoms; R91.8 Other nonspecific abnormal finding of lung field; F17.200 Nicotine dependence, unspecified, uncomplicated; Z90.89 Acquired absence of other organs; Z90.49 Acquired absence of other specified parts of digestive tract
CPT/HCPCS: 71260; 74177; Q9966; Q9967

== ENCOUNTER → 2019-12-24 | Outpatient (CLI) | payer MEDICARE ==
[~2019-12-24] MED LIST changes: -CONTRAST GIVEN. MC PRN
[2019-12-24 10:54] LABS: CREATININE 1.2 mg/dL (0.7-1.3); GFR 60.4
--- NOTE | 2019-12-24 16:45 | RAD ---
Examination: CT CHEST ABD PELVIS W/CONTRAST History: Colon cancer Comparison/Correlation: 06/23/2019 CT chest abdomen pelvis with contrast Findings: Axial images of chest, abdomen, postoperative contrast. Sagittal and coronal reformatted images were provided. Oral contrast was administered. Diffuse emphysematous involving the lung lucero noted. No pleural or pericardial effusion. No enlarged thoracic lymph nodes. Thoracic aorta is unremarkable. At the midthoracic level, there is a subpleural 0.35 cm diameter pulmonary nodule which appears minimally decreased in the interval on axial image 39 of series 2. Slight decrease in a nodule along the major fissure posteriorly is present on axial image with a measurement of 0.5 cm compared to nearly 0.6 cm previously. Pulmonary nodule is present adjacent to the right lateral basilar pleural fluid to previous exam. At the right costophrenic sulcus, there is a nodule measuring 0.5 cm x 0.8 which is overall unchanged in volume. Calcified granuloma involving the left lower lobe superiorly. Scarring involving the left apex is present. There is a 0.6 cm diameter nodule along the left major fissure inferiorly which has remained stable. Nodule along the left lateral basal aspect of the pleura measuring 0.5 cm diameter is stable. No new nodules. No new infiltrates. Scarring at the lung apices is similar. A few other punctate nodules are present and mostly are subpleural in location without significant change. Liver, spleen, pancreas, adrenal glands, and kidneys are unremarkable. Bilateral extrarenal pelves are again seen. Partial ascending colectomy noted with suture material. Intussusception is evident within a proximal jejunal segment and this is best seen on axial image 34 of series 4 and coronal image 22 of series 8. No obstruction. No inflammatory findings involving abdomen or pelvis. Urinary bladder is unremarkable although evaluation is somewhat limited due to streak artifact relating to the left hip joint prosthesis. Prostate gland is enlarged measuring 5.3 cm transverse. Multilevel degenerative disc space narrowing of the lumbar spine is notable. Impression: Decrease in size of multiple pleural-based pulmonary nodules. No new or definitely enlarging pulmonary nodules. No abdominal or pelvic mass lesions or lymphadenopathy. Small segment of intussusception involving a proximal jejunal loop of bowel is present without obstruction. This is of indeterminate significance. It is not evident on recent prior exams. Prostatomegaly. PQRS Compliance Statement: One or more of the following individualized dose reduction techniques were utilized for this examination: 1. Automated exposure control 2. Adjustment of the mA and/or kV according to patient size 3. Use of iterative reconstruction technique Electronically signed by: Marcos Shaw MD (12/24/2019 4:43 PM) [facility]
== END | disposition home or self-care (01) ==
LOC: CT 11:21
PROVIDERS: ATTEND Internal Medicine Hematology & Oncology
DX: Z00.6 Encounter for examination for normal comparison and control in clinical research program (principal); C18.2 Malignant neoplasm of ascending colon; J44.9 Chronic obstructive pulmonary disease, unspecified; J84.10 Pulmonary fibrosis, unspecified; M48.061 Spinal stenosis, lumbar region without neurogenic claudication; R91.8 Other nonspecific abnormal finding of lung field; N40.0 Benign prostatic hyperplasia without lower urinary tract symptoms; F17.200 Nicotine dependence, unspecified, uncomplicated; Z90.49 Acquired absence of other specified parts of digestive tract; Z92.21 Personal history of antineoplastic chemotherapy
CPT/HCPCS: 36415; 71260; 74177; 82565; Q9966; Q9967

== ENCOUNTER → 2020-06-28 | Outpatient (CLI) | payer MEDICARE ==
[~2020-06-28] MED LIST changes: -IOHEXOL 240 MG/ML 50ML VIAL. PO ONE; -IOHEXOL 300 MG/ML 100ML VIAL. IV ONE
[2020-06-28 09:03] LABS: BASO % 1 % (0-3); EOS # 0.4 x10^3/uL (0.0-0.7); EOS % 8 % (0-3); HEMATOCRIT 47.6 % (39.0-53.0); HEMOGLOBIN 16.2 g/dL (13.0-17.5); LYMPH # 0.6 x10^3/uL (1.0-4.8); LYMPH % 14 % (24-48); MEAN CORPUSCULAR HEMOGLOBIN 31 pg (25-35); MEAN CORPUSCULAR HGB CONC 34 g/dL (31-37); MEAN CORPUSCULAR VOLUME 90 fL (79-100); MONO # 0.6 x10^3/uL (0.0-1.1); MONO % 15 % (0-9); NEUT # 2.8 x10^3/uL (1.8-7.7); NEUT % 63 % (31-73); PLATELET COUNT 204 x10^3/uL (140-400); RED BLOOD COUNT 5.29 x10^6/uL (4.30-5.70); RED CELL DISTRIBUTION WIDTH 14.1 % (11.5-14.5); WHITE BLOOD COUNT 4.4 x10^3/uL (4.0-11.0)
[2020-06-28 09:23] LABS: CALCIUM 8.2 mg/dL (8.5-10.1); CREATININE 1.2 mg/dL (0.7-1.3); GFR 60.2; POTASSIUM 3.8 mmol/L (3.5-5.1)
[2020-06-28 09:29] LABS: ALBUMIN 3.6 g/dL (3.4-5.0); ALBUMIN/GLOBULIN RATIO 0.9 (1.0-1.7); TOTAL BILIRUBIN 0.9 mg/dL (0.2-1.0); TOTAL PROTEIN 7.7 g/dL (6.4-8.2)
== END ==
LOC: ONCLAB 08:53
PROVIDERS: ATTEND Internal Medicine Hematology & Oncology
DX: C18.2 Malignant neoplasm of ascending colon (principal)
CPT/HCPCS: 36415; 80053; 82378; 85025

== ENCOUNTER → 2020-07-20 | Outpatient (CLI) | payer MEDICARE ==
[~2020-07-20] MED LIST changes: +CONTRAST GIVEN. MC PRN; +IOHEXOL 300 MG/ML 100ML VIAL. IV ONE
--- NOTE | 2020-07-20 13:38 | RAD ---
EXAM: CT Chest with IV contrast CLINICAL HISTORY: MALIGNANT NEOPLASM OF ASCENDING COLON COMPARISON: 12/24/2019, 06/23/2019 06/21/2018: 09/29/2017 TECHNIQUE: CT of the chest following the administration of intravenous contrast. Axial, coronal and sagittal reformatted images were generated. ---PQRS compliance statement - One or more of the following individualized dose reduction techniques were utilized for this study: 1. Automated exposure control 2. Adjustment of the mA and/or kV according to patient size 3. Use of iterative reconstruction technique--- FINDINGS: CHEST: The heart is not enlarged. No pericardial effusion. Coronary artery calcifications are seen. Aortic root calcifications are seen. No pleural effusion or pneumothorax. No thoracic lymphadenopathy. Bilateral emphysematous changes are seen.. Biapical pleural/parenchymal scarring/thickening is grossly unchanged without associated dominant nodule. Pleural-based calcifications in the upper lobes. Multiple lung nodules are seen. Lapper nodules: 4 mm lung nodule in the middle lobe (series 2 image 38) is stable previously also 4 mm. 6 mm left fissural lung nodule (image 44) is stable to 06/23/2019, although increased in size compared to 06/21/2018 when it measured 4 mm. A nodule along the right major fissure (image 44) measures 6 mm, previously 5 mm, but prior to that on 06/23/2019 measured 6 mm. A nodule of the middle lobe abutting the diaphragm and major fissure measures 5 mm (image 47), stable. Several lung nodules are also seen, stable. Visualized Upper abdomen: Malrotated left kidney unchanged, only partially profiled. Upper abdomen is otherwise unremarkable Bones: Decreased bone mineral density. Height loss of likely T4 and T5 is unchanged. Multilevel disc height loss. No obvious displaced fracture is seen. IMPRESSION: 1. Multiple bilateral lung nodules are grossly stable in size. Although the majority of the lung nodules are stable to 06/23/2019, a few are marginally increased compared to 06/21/2018, and therefore follow-up CT in 6-12 months is recommended to ensure stability. Electronically signed by: Lacho Ball MD (07/20/2020 1:35 PM) [facility]
== END | disposition home or self-care (01) ==
LOC: CT 09:17
PROVIDERS: ATTEND Internal Medicine Hematology & Oncology
DX: C18.2 Malignant neoplasm of ascending colon (principal)
CPT/HCPCS: 71260; Q9967

== ENCOUNTER → 2020-12-29 | Outpatient (CLI) | payer MEDICARE ==
[~2020-12-29] MED LIST changes: -CONTRAST GIVEN. MC PRN; -IOHEXOL 300 MG/ML 100ML VIAL. IV ONE
[2020-12-29 09:10] LABS: BASO # 0.1 x10^3/uL (0.0-0.2); BASO % 2 % (0-3); EOS # 0.4 x10^3/uL (0.0-0.7); EOS % 8 % (0-3); HEMATOCRIT 47.4 % (39.0-53.0); HEMOGLOBIN 16.2 g/dL (13.0-17.5); LYMPH # 0.6 x10^3/uL (1.0-4.8); LYMPH % 12 % (24-48); MEAN CORPUSCULAR HEMOGLOBIN 31 pg (25-35); MEAN CORPUSCULAR HGB CONC 34 g/dL (31-37); MEAN CORPUSCULAR VOLUME 89 fL (79-100); MONO # 0.6 x10^3/uL (0.0-1.1); MONO % 13 % (0-9); NEUT # 3.1 x10^3/uL (1.8-7.7); NEUT % 66 % (31-73); PLATELET COUNT 194 x10^3/uL (140-400); RED CELL DISTRIBUTION WIDTH 14.5 % (11.5-14.5); WHITE BLOOD COUNT 4.8 x10^3/uL (4.0-11.0)
[2020-12-29 09:31] LABS: CALCIUM 8.7 mg/dL (8.5-10.1); GFR 74.1; POTASSIUM 3.4 mmol/L (3.5-5.1)
[2020-12-29 09:34] LABS: ALBUMIN 3.7 g/dL (3.4-5.0); ALBUMIN/GLOBULIN RATIO 0.9 (1.0-1.7); TOTAL BILIRUBIN 0.7 mg/dL (0.2-1.0); TOTAL PROTEIN 7.6 g/dL (6.4-8.2)
== END ==
LOC: ONCLAB 08:32
PROVIDERS: ATTEND Internal Medicine Hematology & Oncology
DX: C18.2 Malignant neoplasm of ascending colon (principal)
CPT/HCPCS: 36415; 80053; 82378; 85025

== ENCOUNTER → 2021-07-27 | Outpatient (CLI) | payer MEDICARE ==
[~2021-07-27] MED LIST changes: -MULT1TAB90 PO; +MULT1TAB92 PO
[2021-07-27 11:27] LABS: CALCIUM 8.8 mg/dL (8.5-10.1); GFR 74.1; POTASSIUM 4.3 mmol/L (3.5-5.1)
[2021-07-27 11:29] LABS: BASO # 0.1 x10^3/uL (0.0-0.2); BASO % 1 % (0-3); EOS # 0.3 x10^3/uL (0.0-0.7); EOS % 4 % (0-3); HEMATOCRIT 46.6 % (39.0-53.0); HEMOGLOBIN 15.9 g/dL (13.0-17.5); LYMPH # 0.4 x10^3/uL (1.0-4.8); LYMPH % 6 % (24-48); MEAN CORPUSCULAR HEMOGLOBIN 31 pg (25-35); MEAN CORPUSCULAR HGB CONC 34 g/dL (31-37); MEAN CORPUSCULAR VOLUME 90 fL (79-100); MONO # 0.6 x10^3/uL (0.0-1.1); MONO % 9 % (0-9); NEUT # 5.7 x10^3/uL (1.8-7.7); NEUT % 80 % (31-73); PLATELET COUNT 172 x10^3/uL (140-400); RED BLOOD COUNT 5.17 x10^6/uL (4.30-5.70); RED CELL DISTRIBUTION WIDTH 14.8 % (11.5-14.5); WHITE BLOOD COUNT 7.2 x10^3/uL (4.0-11.0)
[2021-07-27 11:34] LABS: ALBUMIN 3.7 g/dL (3.4-5.0); ALBUMIN/GLOBULIN RATIO 1.1 (1.0-1.7); TOTAL BILIRUBIN 0.5 mg/dL (0.2-1.0); TOTAL PROTEIN 7.2 g/dL (6.4-8.2)
== END ==
LOC: ONCLAB 10:34
PROVIDERS: ATTEND Internal Medicine Hematology & Oncology
DX: C18.2 Malignant neoplasm of ascending colon (principal)
CPT/HCPCS: 36415; 80053; 82378; 85025

== ENCOUNTER → 2021-08-04 | Outpatient (CLI) | payer MEDICARE ==
[~2021-08-04] MED LIST changes: +CONTRAST GIVEN. MC PRN; +IOHEXOL 300 MG/ML 100ML VIAL. IV ONE
--- NOTE | 2021-08-05 07:18 | KCIC ---
PQRS Compliance Statement: One or more of the following individualized dose reduction techniques were utilized for this examinat ion: 1. Automated exposure control 2. Adjustment of the mA and/or kV according to patient size 3. Use of iterative reconstruction technique CT THORAX W 08/04/2021 1:17 PM Indication: Malignant neoplasm ascending colon. Lung nodule COMPARISON: CT chest 07/20/2020, 06/23/2019. TECHNIQUE: Multiple axial CT images of the chest were obtained after intravenous administration of 85 mL Omnipaque 300. Coronal and sagittal reformats are provided. FINDINGS: There is severe centrilobular pulmonary emphysema. No pathologically enlarged thoracic lymph nodes. S table 6 mm solid noncalcified pulmonary nodule along the left major fissure (series 6, image 44). Sta ble subpleural solid noncalcified pulmonary nodule in the lateral left lower lobe measuring 6 mm (ser ies 6, image 42). 5 mm solid noncalcified pulmonary nodule in the right major fissure appears stable. 6 mm subpleural solid noncalcified pulmonary nodule in the lateral right lower lobe is stable (serie s 6, image 47). No new or enlarging solid noncalcified pulmonary nodules. No pleural effusions, pulmo nary vascular congestion or pneumothorax. Biapical pleural-parenchymal scarring appears stable. There is partial osseous fusion of T5-T6. Stable superior endplate compression deformity involving T4 with 75% height loss. Stable compression deformity involving T5 with 50-75% height loss. Thyroid gland is stable in appearance. Heart size is within normal limits. There is ectasia of the sinus of Valsalva measuring up to 4.1 cm. Visualized liver appears normal. Calcifications within the spleen suggest seq uela prior granulomatous exposure. IMPRESSION: Stable solid noncalcified pulmonary nodules measuring up to 6 mm. Findings are stable dating back to 06/23/2019. Severe centrilobular pulmonary emphysema. Electronically signed by: Kristie James MD (08/05/2021 7:15 AM) [facility]
== END ==
LOC: KCIC CT 13:10
PROVIDERS: ATTEND Internal Medicine Hematology & Oncology
DX: C18.2 Malignant neoplasm of ascending colon (principal); R91.8 Other nonspecific abnormal finding of lung field; J43.2 Centrilobular emphysema
CPT/HCPCS: 71260; Q9967